=== PATIENT | female | born 1950 | race Caucasian/White ===

== ENCOUNTER 2016-10-26 01:47 | Outpatient (CLI) | payer MEDICARE | END 2016-10-26 01:48 | disposition critical access hospital (66) | DX: R10.32 Left lower quadrant pain (principal) | CPT/HCPCS: A0425; A0427 ==

== ENCOUNTER 2016-10-26 01:58 | Observation (INO) | payer MEDICARE ==
[2016-10-26] MEDS ORDERED: SODIUM CHLORIDE 0.9% 1,000 ML IV ONE (02:16)
[2016-10-26] MEDS ORDERED: ONDANSETRON 4 MG/2 ML VIAL ONE (03:56)
[2016-10-26] MEDS ORDERED: PROCHLORPERAZINE 10 MG/2 ML VIAL IVP PRN (04:44)
[2016-10-26] MEDS ORDERED: oxyCODONE 5 MG TABLET PO PRN ×2 (04:44)
[2016-10-26] MEDS ORDERED: ONDANSETRON 4 MG/2 ML VIAL IVP PRN (04:44)
[2016-10-26] MEDS ORDERED: ACETAMINOPHEN 325 MG TABLET PO PRN (04:44)
[2016-10-26] MEDS ORDERED: SODIUM CHLORIDE FLUSH 0.9% 10 ML SYRINGE IVP PRN (04:44)
[2016-10-26] MEDS ORDERED: HYDROmorphone 1 MG/ML SYRINGE IVP PRN (04:49)
[2016-10-26] MEDS ORDERED: SODIUM CHLORIDE 0.9% 1,000 ML IV SCH (05:00)
[2016-10-26] MEDS ORDERED: ONDANSETRON 4 MG/2 ML VIAL IVP STA (05:04)
[2016-10-26] MEDS: NS W/20 MEQ KCL 1,000 ML IV SCH ×3 (05:50→22:25)
[2016-10-26] MEDS ORDERED: MAGNESIUM SULFATE 2 GRAM 50 ML IV SCH (06:02)
[2016-10-26] MEDS: SODIUM CHLORIDE FLUSH 0.9% 10 ML SYRINGE IVP SCH ×3 (06:03→21:16)
[2016-10-26] MEDS: INSULIN GLARGINE 300 UNIT/3 ML PEN SUBQ SCH ×2 (06:11→18:38)
[2016-10-26] MEDS: INSULIN REGULAR HUMAN 100 UNIT/1 ML 10 ML MDV SUBQ SCH ×3 (06:12→18:39)
[2016-10-26] MEDS ORDERED: PANTOPRAZOLE 40 MG TABLET PO SCH (07:00)
[2016-10-26] MEDS: POLYETHYLENE GLYCOL 3350 17 GM PACKET PO SCH (11:22)
[2016-10-26] MEDS: ENOXAPARIN 40 MG/0.4 ML SYRINGE SUBQ SCH (11:24)
[2016-10-26] MEDS ORDERED: GI COCKTAIL 120 ML BOTTLE PO PRN (16:09)
[2016-10-26] MEDS: PANTOPRAZOLE 40 MG VIAL IVP SCH (21:14)
[2016-10-27] MEDS ORDERED: GLUCAGON 1 MG/ML VIAL SUBQ PRN (00:10)
[2016-10-27] MEDS ORDERED: DEXTROSE 50% ABBOJECT 25 GM/50 ML SYRINGE IVP PRN (00:10)
[2016-10-27] MEDS ORDERED: DEXTROSE 5% 1,000 ML IV PRN (00:10)
[2016-10-27] MEDS ORDERED: DEXTROSE GEL 37.5 GM TUBE PO PRN (00:10)
[2016-10-27] MEDS: INSULIN REGULAR HUMAN 100 UNIT/1 ML 10 ML MDV SUBQ SCH (00:11)
[2016-10-27] MEDS: NS W/20 MEQ KCL 1,000 ML IV SCH (06:23)
[2016-10-27] MEDS: SODIUM CHLORIDE FLUSH 0.9% 10 ML SYRINGE IVP SCH (06:24)
[2016-10-27] MEDS ORDERED: INSULIN ASPART 300 UNIT/3 ML PEN SUBQ SCH ×2 (08:00)
[2016-10-27] MEDS ORDERED: INSULIN GLARGINE 300 UNIT/3 ML PEN SUBQ SCH ×2 (08:00→21:00)
[2016-10-27] MEDS: PANTOPRAZOLE 40 MG VIAL IVP SCH (09:56)
[2016-10-27] MEDS: ENOXAPARIN 40 MG/0.4 ML SYRINGE SUBQ SCH (09:56)
[2016-10-27] MEDS: POLYETHYLENE GLYCOL 3350 17 GM PACKET PO SCH (09:56)
== END 2016-10-27 11:25 | disposition home or self-care (01) ==
DX: K85.90 Acute pancreatitis without necrosis or infection, unspecified (principal); E11.65 Type 2 diabetes mellitus with hyperglycemia; E87.6 Hypokalemia; I10 Essential (primary) hypertension; I49.9 Cardiac arrhythmia, unspecified; Z95.0 Presence of cardiac pacemaker; Z86.73 Personal history of transient ischemic attack (TIA), and cerebral infarction without residual deficits; Z90.49 Acquired absence of other specified parts of digestive tract; Z79.4 Long term (current) use of insulin; Z79.899 Other long term (current) drug therapy; Z87.11 Personal history of peptic ulcer disease; Z72.0 Tobacco use
CPT/HCPCS: 36415; 51701; 74176; 76705; 80053; 80061; 81003; 82150; 83036; 83690; 83735; 84100; 85025; 96361; 96365; 96372; 96375; 96376; 99285; A9270; G0378; J1170; J1650; J1815

== ENCOUNTER 2016-11-03 11:37 | Outpatient (CLI) | payer MEDICARE | END 2016-11-03 11:38 | disposition home or self-care (01) | DX: R06.09 Other forms of dyspnea (principal); R06.00 Dyspnea, unspecified; E78.00 Pure hypercholesterolemia, unspecified; E11.9 Type 2 diabetes mellitus without complications; K85.90 Acute pancreatitis without necrosis or infection, unspecified ==

== ENCOUNTER 2016-11-03 17:12 | Outpatient (CLI) | payer MEDICARE | END 2016-11-03 17:13 | disposition home or self-care (01) | DX: R06.00 Dyspnea, unspecified (principal); R60.0 Localized edema; E78.00 Pure hypercholesterolemia, unspecified; E11.9 Type 2 diabetes mellitus without complications; K85.90 Acute pancreatitis without necrosis or infection, unspecified ==

== ENCOUNTER 2016-11-17 11:19 | Outpatient (CLI) | payer MEDICARE | END 2016-11-17 11:20 | disposition home or self-care (01) | DX: I50.1 Left ventricular failure, unspecified (principal); I51.7 Cardiomegaly; I34.0 Nonrheumatic mitral (valve) insufficiency; Z95.0 Presence of cardiac pacemaker; R06.09 Other forms of dyspnea ==

== ENCOUNTER 2017-03-24 11:23 | Outpatient (CLI) | payer MEDICARE ==
[2017-03-24 12:15] LABS: CALCIUM 9.5 mg/dL (8.5-10.3); MAGNESIUM 1.7 mg/dL (1.7-2.8); POTASSIUM 5.6 mmol/L (3.5-5.0)
[2017-03-24 12:27] LABS: HEMOGLOBIN A1C 0.71 g/dL
== END 2017-03-24 11:24 | disposition home or self-care (01) ==
LOC: LAB 11:23
PROVIDERS: ATTEND Internal Medicine
DX: E11.9 Type 2 diabetes mellitus without complications (principal); I50.22 Chronic systolic (congestive) heart failure
CPT/HCPCS: 36415; 80048; 83036; 83735

== ENCOUNTER 2017-03-31 12:53 | Outpatient (CLI) | payer MEDICARE ==
[2017-03-31 18:54] LABS: BUN - BLOOD UREA NITROGEN 28 mg/dL (6-20); CALCIUM 9.8 mg/dL (8.5-10.3); CARBON DIOXIDE - CO2 29 mmol/L (21-32); CHLORIDE 91 mmol/L (101-111); GFR - MDRD 55 (>89); GLUCOSE 230 mg/dL (70-100); POTASSIUM 4.9 mmol/L (3.5-5.0); SODIUM 129 mmol/L (135-145)
== END 2017-03-31 12:54 | disposition home or self-care (01) ==
LOC: LAB.F 12:53
PROVIDERS: ATTEND Internal Medicine
DX: E87.1 Hypo-osmolality and hyponatremia (principal); E87.5 Hyperkalemia; R68.89 Other general symptoms and signs
CPT/HCPCS: 36415; 80048; 84443

== ENCOUNTER 2017-05-05 16:28 | Outpatient (CLI) | payer MEDICARE ==
[2017-05-05 16:53] LABS: CALCIUM 9.6 mg/dL (8.5-10.3); CREATININE 1.1 mg/dL (0.4-1.0); POTASSIUM 4.1 mmol/L (3.5-5.0)
== END 2017-05-05 16:29 | disposition home or self-care (01) ==
LOC: LAB 16:28
PROVIDERS: ATTEND Internal Medicine
DX: I50.22 Chronic systolic (congestive) heart failure (principal)
CPT/HCPCS: 36415; 80048

== ENCOUNTER 2017-08-10 15:03 | Outpatient (CLI) | payer MEDICARE ==
--- NOTE | 2017-08-13 11:28 | Ultrasound Report ---
CAROTID DUPLEX: 08/10/2017 CLINICAL INDICATION: Carotid bruit. TECHNIQUE: Real-time sonographic vascular imaging was performed by the tanning wheel operator through the carotid arteries utilizing both color-flow and Doppler spectral analysis. Multiple car sales representative static images were saved for review. Vessel PSV cm/sec EDV cm/sec ICA/CCA PSV Ratio Degree of Stenosis Plaque Estimate % RCCA Prox 66 -- -- -- -- RCCA Dist 57 15 -- -- -- RECA 96 -- -- -- -- RT BULB 61 16 -- -- -- TEE Prox 63 16 -- -- -- TEE Mid 100 30 -- -- -- TEE Dist 81 25 -- -- -- RVA 56 -- -- -- -- RVA flow direction: Antegrade. Vessel PSV cm/sec EDV cm/sec ICA/CCA PSV Ratio Degree of Stenosis Plaque Estimate % LCCA Prox 86 -- -- -- -- LCCA Dist 66 19 -- -- -- LECA 116 -- -- -- -- LFT BULB 59 14 -- -- -- LICA Prox 67 21 -- -- -- LICA Mid 79 26 -- -- -- LICA Dist 88 26 -- -- -- LVA 84 -- -- -- -- LVA flow direction: Antegrade. Velocity criteria are extrapolated from diameter data as defined by the Society of Radiologists in Ultrasound Consensus Conference Radiology 2003; 229; 340-346. Degree of Stenosis % ICA PSV cm/sec ICA EDV cm/sec ICA/CCA PSV Ratio Plaque Estimate % Normal < 125 <40 < 2.0 None <50 < 125 <40 < 2.0 <50 50-69 125-130 40-100 2.0-4.0 >/=50 >/=70 but less than near occlusion > 230 >100 > 4.0 >/=50 Near occlusion High, low, or undetectable Variable Variable Visible Total occlusion Undetectable Not applicable Not applicable No detectable lumen RIGHT: There is mild plaquing in the right carotid bifurcation, without evidence of a focal hemodynamically significant stenosis. LEFT: There is mild plaquing in the left carotid bifurcation, without evidence of a focal hemodynamically significant carotid stenosis. The vertebral arteries demonstrate antegrade flow bilaterally. Incidental note is made of left greater than right thyroid nodules. Formal thyroid ultrasound is recommended for further evaluation. IMPRESSION: No evidence of a hemodynamically significant carotid stenosis. Left greater than right thyroid nodules. Formal thyroid ultrasound is recommended for further evaluation. zaheer TD: 08/10/2017 21:16 MTDD
== END 2017-08-10 15:04 | disposition home or self-care (01) ==
LOC: DI 15:03
PROVIDERS: ATTEND Family Medicine
DX: R09.89 Other specified symptoms and signs involving the circulatory and respiratory systems (principal)
CPT/HCPCS: 93880

== ENCOUNTER 2017-08-11 09:36 | Outpatient (CLI) | payer MEDICARE ==
[2017-08-11 10:00] LABS: BASOPHILS # (AUTO) 0.1 10^3/uL (0.0-0.1); BASOPHILS % (AUTO) 0.7 %; EOSINOPHILS # (AUTO) 0.3 10^3/uL (0.0-0.7); EOSINOPHILS % (AUTO) 3.3 %; HCT - HEMATOCRIT 35.2 % (37.0-47.0); HGB - HEMOGLOBIN 12.1 g/dL (12.0-16.0); LYMPHOCYTES # (AUTO) 2.8 10^3/uL (1.5-3.5); LYMPHOCYTES % (AUTO) 29.1 %; MEAN CORPUSCULAR HEMOGLOBIN 32.8 pg (27.0-31.0); MEAN CORPUSCULAR HGB CONC 34.4 g/dL (32.0-36.0); MEAN CORPUSCULAR VOLUME 95.3 fL (81.0-99.0); MEAN PLATELET VOLUME 6.7 fL (7.9-10.8); MONOCYTES # (AUTO) 0.5 10^3/uL (0.0-1.0); NEUTROPHILS # (AUTO) 5.9 10^3/uL (1.5-6.6); NEUTROPHILS % (AUTO) 61.9 %; RED BLOOD COUNT 3.69 10^6/uL (4.20-5.40); RED CELL DISTRIBUTION WIDTH 12.9 % (12.0-15.0); UNCORRECTED WHITE BLOOD COUNT 9.5 x10^3/uL; WHITE BLOOD COUNT 9.5 x10^3/uL (4.8-10.8)
[2017-08-11 10:06] LABS: HEMOGLOBIN A1C 0.78 g/dL
[2017-08-11 10:09] LABS: ALBUMIN/GLOBULIN RATIO 1.5 (1.0-2.2); BILIRUBIN,TOTAL 0.4 mg/dL (0.2-1.0); BUN - BLOOD UREA NITROGEN 25 mg/dL (6-20); CALCIUM 9.7 mg/dL (8.5-10.3); CARBON DIOXIDE - CO2 29 mmol/L (21-32); CHLORIDE 98 mmol/L (101-111); CHOL/HDL RATIO 2.5 (<4.4); CHOLESTEROL 182 mg/dL; CREATININE 1.2 mg/dL (0.4-1.0); GFR - MDRD 45 (>89); GLUCOSE 155 mg/dL (70-100); HDL CHOLESTEROL 73 mg/dL; LDL/HDL RATIO 1.2 (<4.4); POTASSIUM 5.2 mmol/L (3.5-5.0); SODIUM 136 mmol/L (135-145); TOTAL PROTEIN 7.1 g/dL (6.7-8.2); TRIGLYCERIDES 122 mg/dL; VLDL CHOLESTEROL 24 mg/dL
== END 2017-08-11 09:37 | disposition home or self-care (01) ==
LOC: LAB 09:36
PROVIDERS: ATTEND Family Medicine
DX: R09.89 Other specified symptoms and signs involving the circulatory and respiratory systems (principal); I10 Essential (primary) hypertension; E78.00 Pure hypercholesterolemia, unspecified; E11.9 Type 2 diabetes mellitus without complications
CPT/HCPCS: 36415; 80053; 80061; 83036; 84443; 85025

== ENCOUNTER 2017-09-08 20:48 | Outpatient (CLI) | payer MEDICARE ==
--- NOTE | 2017-09-08 23:14 | Ultrasound Preliminary Report ---
Exam: US DUPLEX LWR EXT ARTERIAL RT IMPRESSION: Ultrasound examination from the right common femoral artery to the ankle diminishes diffusely abnorma l monophasic waveforms and decreased velocities. No focal stenosis is noted. There is evidence of dif fuse atheromatous calcified and noncalcified plaques. Comment: Study begins at the level of the right common femoral artery. The abdominal aorta, intra-abd ominal and external iliac arteries are not evaluated. Central disease not excluded by this current st udy. Patient may benefit from CT angiogram with runoff. JTA The call report notification system was initiated by Dr. Corazon Valladares at 22:51 hrs on 09/08/17. The above findings were discussed with Junior Aguirre by Dr. Corazon Valladares at 23:13 hrs on 09/08/17. SITE ID: [id number]
--- NOTE | 2017-09-09 00:30 | Ultrasound Report ---
EXAM: RIGHT LOWER EXTREMITY ARTERIAL DOPPLER ULTRASOUND EXAM DATE: 09/08/2017 10:33 PM. CLINICAL HISTORY: Subacute onset pallor/exertional pain/anesthesia. COMPARISON: None. TECHNIQUE: Real-time sonographic vascular imaging was performed by the bench loom weaver, utilizing color-f low, Doppler flow, and spectral analysis. Multiple wine sales representative static images were saved for review . FINDINGS: The grayscale and color images demonstrate diffuse atheromatous calcified and noncalcified plaques wi thout focal stenosis. Diffusely abnormal waveforms are noted. Biphasic waveforms are seen in the right common femoral arter y. The remaining vessels from the hip to the ankle demonstrate monophasic waveforms. Parvus tardus wa veforms are noted in the distal right superficial femoral artery, popliteal, peroneal, and posterior tibial arteries. Nonvisualization of the right dorsalis pedis artery. Spectral waveform analysis is as follows: Right Leg: YOUTH PROGRAM DIRECTOR: PSV 99.2 cm/sec. Biphasic waveform. PSFA: PSV 36 cm/sec. Monophasic waveform. MSFA: PSV 79 cm/sec. Monophasic waveform. DSFA: PSV 18 cm/sec. Monophasic waveform. PFA: PSV 101 cm/sec. Monophasic waveform. POP: PSV 17.2 cm/sec. Monophasic waveform. DELL: PSV 14.2 cm/sec. Monophasic waveform. DIALYSIS CHIEF EQUIPMENT TECHNICIAN: PSV 16 cm/sec. Monophasic waveform. PER: PSV 8.2 cm/sec. Monophasic waveform. DPA: Almost completely absent flow. IMPRESSION: Ultrasound examination from the right common femoral artery to the ankle demonstrates diffusely abnor mal monophasic waveforms and decreased velocities. No focal stenosis is noted. There is evidence of d iffuse atheromatous calcified and noncalcified plaques. Comment: Study begins at the level of the right common femoral artery. The abdominal aorta, internal and external iliac arteries are not evaluated. Central disease not excluded by this current study. Pa tient may benefit from CT angiogram with runoff. JTA The call report notification system was initiated by Dr. Corazon Valladares at 22:51 hrs on 09/08/17. The above findings were discussed with Junior Aguirre by Dr. Corazon Valladares at 23:13 hrs on 09/08/17. Referring Provider Line: [phone] SITE ID: [id number]
== END 2017-09-08 20:49 | disposition home or self-care (01) ==
LOC: DI 20:48
PROVIDERS: ATTEND Internal Medicine
DX: I70.201 Unspecified atherosclerosis of native arteries of extremities, right leg (principal)

== ENCOUNTER 2017-09-09 10:50 | Emergency (ER) | payer MEDICARE ==
--- NOTE | 2017-09-09 11:08 | ED Physician Documentation ---
PD HPI LOWER EXT INJURY - Stated complaint Stated Complaint: R LOWER LEG NUMB/COLD - Chief complaint Chief Complaint: General - History obtained from History obtained from: Patient - History of Present Illness PD HPI LOW EXT INJURY LOCATION: Right, Lower leg (from just below knee down to tips.) Type of injury: No: Fall, Twist, Blunt / blow Timing - onset: Today Timing - duration: Days (onset of severe right leg pain associated with pallor last night. Improved enough to begin walking and moving leg.) Timing - details: Abrupt onset (she has been having pain in right leg with walking for weeks/months. Seen by Dr. Rogers, PMD, yesterday and had outpt labs ordered, with U/S showing diminished flow to leg on right. U/S today showing some flow down through leg.) Worsened by: Moving Associated symptoms: Weakness, Tingling. No: Numbness Contributing factors: No: Anticoagulated Similar symptoms before: No diagnosis (concern for occlusion through distal/) Recently seen: Clinic Review of Systems Constitutional: denies: Fever, Chills Eyes: denies: Decreased vision Nose: denies: Rhinorrhea / runny nose, Congestion Throat: denies: Sore throat Cardiac: denies: Chest pain / pressure, Palpitations Respiratory: denies: Dyspnea, Cough GI: reports: Nausea. denies: Vomiting, Diarrhea, Bloody / black stool : denies: Dysuria, Frequency Skin: denies: Rash, Lesions Neurologic: reports: Generalized weakness. 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 Cardiovascular: Pacemaker HEENT: Cataracts - Present Medications Home Medications: Ambulatory Orders Medication Instructions Recorded Confirmed Insulin NPH Human [NovoLIN N] 7 - 10 units SUBQ DAILY PM 10/26/16 12/25/16 Acetaminophen [Tylenol] 650 mg PO Q4HR PRN #0 tablet 10/27/16 Carvedilol 6.25 mg PO BID 12/25/16 12/25/16 Epinephrine [Epipen 2-Pranay] 1 syr SUBQ PRN PRN 12/25/16 12/25/16 Furosemide 40 mg PO DAILY 12/25/16 12/25/16 Glimepiride 2 mg PO DAILY 12/25/16 12/25/16 Insulin Regular Human [NovoLIN R] 3 - 5 units SQ BIDAC 12/25/16 12/25/16 Losartan Potassium 100 mg PO DAILY 12/25/16 12/25/16 Metformin HCl [Metformin HCl ER] 1,000 mg PO DAILY 12/25/16 12/25/16 - Allergies Allergies/Adverse Reactions: Allergies Allergy/AdvReac Type Severity Reaction Status Date / Time ibuprofen Allergy Intermediate GI upset Verified 09/09/17 11:06 morphine Allergy Unknown Unknown Verified 09/09/17 11:06 shellfish Allergy Unknown Uncoded 09/09/17 11:06 - Social History Does the pt smoke?: No Smoking Status: Never smoker Does the pt drink ETOH?: No Does the pt have substance abuse?: No - Family History Family history: reports: Non contributory - Immunizations Immunizations are current?: Yes - POLST Patient has POLST: No PD ED PE NORMAL - Vitals Vital signs reviewed: Yes - General General: Alert and oriented X 3, No acute distress, Well developed/nourished - HEENT HEENT: Pharynx benign - Neck Neck: Supple, no meningeal sign, No adenopathy - Cardiac Cardiac: RRR, No murmur - Respiratory Respiratory: Clear bilaterally - Abdomen Abdomen: Soft, Non tender - Female Female : Deferred - Rectal Rectal: Deferred - Back Back: No CVA TTP - Derm Derm: Normal color, Warm and dry - Extremities Extremities: No deformity, No tenderness to palpate, Normal ROM s pain - Neuro Neuro: Alert and oriented X 3, No motor deficit, Normal speech Eye Opening: Spontaneous Motor: Obeys Commands Verbal: Oriented GCS Score: 15 - Psych Psych: Normal mood. No: Normal affect Results - Vitals Vitals: Vital Signs - 24 hr 09/09/17 09/09/17 10:53 13:00 Temperature 36.6 C Heart Rate 59 L 59 L Respiratory 20 20 Rate Blood Pressure 139/52 H 139/66 H O2 Saturation 100 100 Oxygen O2 Source Room air - Rads (name of study) duplex right leg Radiology: Prelim report reviewed (distal flow present.) PD MEDICAL DECISION MAKING - ED course Complexity details: reviewed results (she has pulses by U/S at DP and p.tibial arteries though small amount. Has color and cap refill. Talked with cardiovascular acid conditioner at [facility] (where his heart doctor is at), He advocated just ASA daily and to be seen in office for peripheral angiogram.), considered differential (sounds like transient vascular occlusion in person with right leg claudication and U/S showing monophasic diminished flow the length of the leg from unguinal area down. ), d/w patient, d/w tax credit leasing consultant Departure - Departure Disposition: Home, Self Care Clinical Impression: Peripheral vascular disease of extremity, Claudication in peripheral vascular disease, Transient arterial occlusion Condition: Stable Record reviewed to determine appropriate education?: Yes Instructions: ED PVD Follow-Up: Junior Aguirre MD [Primary Care Provider] - [facility] [Provider Group] Comments: Take an aspirin daily (can be for baby aspirins). Stay well-hydrated. Continue your other usual medications. The vascular clinic at the [facility] will call you later today or tomorrow to set up an appointment in the very short future. I talked with the on-call provider and they will want to do a peripheral angiogram to assess the area of blockage and see if they can intervene. As such they suggested not doing any CT or dye studies today. Return to the ER if you have severe pain and discoloration of the leg like you had last night. Discharge Date/Time: 09/09/17 13:54
[2017-09-09] MEDS ORDERED: ASPIRIN CHEW 81 MG TABLET PO STA (12:12)
--- NOTE | 2017-09-09 12:54 | CT Report ---
EXAM: CT HEAD EXAM DATE: 09/09/2017 12:45 PM. CLINICAL HISTORY: Some confusion and off balance. COMPARISON: None. TECHNIQUE: Multiaxial CT images were obtained from the foramen magnum to the vertex. Reformats: Coron al. IV contrast: None. In accordance with CT protocol optimization, one or more of the following dose reduction techniques w ere utilized for this exam: automated exposure control, adjustment of mA and/or KV based on patient s ize, or use of iterative reconstructive technique. FINDINGS: Parenchyma: No intraparenchymal hemorrhage. No evidence of mass, midline shift, or CT findings of acu te infarction. Bennett-white differentiation is distinct. Diffuse chronic microangiopathic white matter changes are evident. Extraaxial Spaces: Bifrontal subdural hygromas 6 mm versus frontal atrophy Ventricles: The ventricles and cortical sulci are enlarged, consistent with age-related tissue loss. Sinuses and orbits: Imaged paranasal sinuses, orbits, and mastoids show no significant abnormality. Bones: No evidence of fracture or calvarial defect. Other: None. IMPRESSION: 1. Bifrontal subdural hygromas 6 mm versus frontal atrophy 2. No acute bleed, no acute infarct. 3. Generalized age-related cortical atrophic changes RADIA Referring Provider Line: [phone] SITE ID: [id number]
[2017-09-09 13:01] VITALS: BP 139/66
== END 2017-09-09 13:54 | disposition home or self-care (01) ==
LOC: ED 10:50
DX: E11.51 Type 2 diabetes mellitus with diabetic peripheral angiopathy without gangrene (principal); I77.89 Other specified disorders of arteries and arterioles; I11.0 Hypertensive heart disease with heart failure; I50.9 Heart failure, unspecified; E78.00 Pure hypercholesterolemia, unspecified; I25.2 Old myocardial infarction; Z79.4 Long term (current) use of insulin; Z95.0 Presence of cardiac pacemaker
CPT/HCPCS: 70450; 99283; 99284; A9270

== ENCOUNTER 2018-11-16 09:00 | Outpatient (CLI) | payer OTHER ==
[2018-11-16 10:38] LABS: CALCIUM 9.6 mg/dL (8.5-10.3)
== END 2018-11-16 09:01 | disposition home or self-care (01) ==
LOC: LAB.F 09:00
PROVIDERS: ATTEND Internal Medicine
DX: I10 Essential (primary) hypertension (principal)
CPT/HCPCS: 36415; 80048

== ENCOUNTER 2019-04-27 09:59 | Outpatient (CLI) | payer OTHER ==
[2019-04-27 10:28] LABS: CHOL/HDL RATIO 1.6 (<4.4); CHOLESTEROL 122 mg/dL; HDL CHOLESTEROL 75 mg/dL; LDL CHOLESTEROL,CALCULATED 33 mg/dL; LDL/HDL RATIO 0.4 (<4.4); VLDL CHOLESTEROL 14 mg/dL
== END 2019-04-27 10:00 | disposition home or self-care (01) ==
LOC: LAB 09:59
PROVIDERS: ATTEND Internal Medicine Cardiovascular Disease
DX: E78.5 Hyperlipidemia, unspecified (principal)
CPT/HCPCS: 36415; 80061; 83721

== ENCOUNTER 2019-08-17 10:24 | Outpatient (CLI) | payer OTHER ==
[2019-08-17 11:22] LABS: BASOPHILS # (AUTO) 0.1 10^3/uL (0.0-0.1); BASOPHILS % (AUTO) 0.5 %; EOSINOPHILS # (AUTO) 0.3 10^3/uL (0.0-0.7); EOSINOPHILS % (AUTO) 3.4 %; HGB - HEMOGLOBIN 11.5 g/dL (12.0-16.0); LYMPHOCYTES # (AUTO) 2.8 10^3/uL (1.5-3.5); LYMPHOCYTES % (AUTO) 28.7 %; MEAN CORPUSCULAR HEMOGLOBIN 31.2 pg (27.0-31.0); MEAN CORPUSCULAR HGB CONC 32.7 g/dL (32.0-36.0); MEAN CORPUSCULAR VOLUME 95.4 fL (81.0-99.0); MEAN PLATELET VOLUME 9.1 fL (7.9-10.8); MONOCYTES # (AUTO) 0.5 10^3/uL (0.0-1.0); MONOCYTES % (AUTO) 4.7 %; NEUTROPHILS % (AUTO) 62.4 %; PLT - PLATELET COUNT 162 10^3/uL (130-450); RED BLOOD COUNT 3.69 10^6/uL (4.20-5.40); RED CELL DISTRIBUTION WIDTH 12.9 % (12.0-15.0); WHITE BLOOD COUNT 9.6 x10^3/uL (4.8-10.8)
[2019-08-17 11:54] LABS: HB2 TOTAL 11.8 g/dL; HEMOGLOBIN A1C 1.23 g/dL; HEMOGLOBIN A1C % 11.7 % (4.6-6.2)
[2019-08-17 11:55] LABS: ALBUMIN 4.2 g/dL (3.2-5.5); ALBUMIN/GLOBULIN RATIO 1.7 (1.0-2.2); ALKALINE PHOSPHATASE 98 IU/L (42-121); ALT ALANINE AMINOTRANSFERASE 22 IU/L (10-60); AST ASPARTATE AMINOTRANSFERASE 20 IU/L (10-42); BILIRUBIN,TOTAL 0.8 mg/dL (0.2-1.0); BUN - BLOOD UREA NITROGEN 26 mg/dL (6-20); CALCIUM 8.6 mg/dL (8.5-10.3); CARBON DIOXIDE - CO2 29 mmol/L (21-32); CHLORIDE 89 mmol/L (101-111); CHOL/HDL RATIO 1.8 (<4.4); CHOLESTEROL 107 mg/dL; CREATININE 1.2 mg/dL (0.4-1.0); GFR - MDRD 44 (>89); GLUCOSE 388 mg/dL (70-100); HDL CHOLESTEROL 61 mg/dL; LDL CHOLESTEROL,CALCULATED 29 mg/dL; LDL/HDL RATIO 0.5 (<4.4); SODIUM 130 mmol/L (135-145); TOTAL PROTEIN 6.7 g/dL (6.7-8.2); VLDL CHOLESTEROL 17 mg/dL
[2019-08-17 12:01] LABS: CREATININE,URINE 33.9 mg/dL; MICROALBUM/CREATININE RATIO,UR 20.6 ug/mg (<30.0); MICROALBUMIN,URINE 0.7 mg/dL (0-300.0)
--- NOTE | 2019-08-18 11:50 | DEXA Report ---
Reason: POSTMENOPAUSAL STATE Procedure Date: 08/17/2019 Accession Number: [id number] / [id number] Procedure: DEX - Dexa Spine and/or Hip CPT Code: Final Report FULL RESULT: EXAM: Dexa Spine and/or Hip, Dexa Forearm DATE: 08/17/2019 2:19 PM CLINICAL HISTORY: POSTMENOPAUSAL STATE TECHNIQUE: Dual energy x-ray absorptiometry (DXA) was performed on a [employer] System. Regions measured are the AP Spine, femoral neck, and if needed forearm. COMPARISON: None. In accordance with the International Society for Clinical Densitometry (ISCD) guidelines, data from previous exams may be reanalyzed using current recommendations and techniques. This is done to allow a more accurate basis for comparison with the current study. FINDINGS: The data for the lumbar spine is as follows: BMD (g/cm/cm) T-SCORE Z-SCORE REGION L1 1.234 0.9 2.8 L2 1.249 0.4 2.4 L3 1.371 1.4 3.4 L4 1.194 0.0 1.9 TOTAL 1.262 0.7 2.6 NOTE: All evaluable vertebrae are used for classification The data for the hip is as follows: BMD (g/cm/cm) T-SCORE Z-SCORE REGION Neck 0.807 -1.7 0.3 TOTAL 0.781 -1.8 -0.1 NOTE: The femoral neck or total proximal femur, whichever is lowest, is used for classification. The data for the left forearm is as follows: BMD (g/cm/cm) T-SCORE Z-SCORE REGION 1/3 0.684 -2.2 -0.3 NOTE: The 33% radius of the nondominant forearm is used for classification. IMPRESSION: THE WHO CLASSIFICATION BASED ON THE INTERNATIONAL REFERENCE STANDARD IS OSTEOPENIA. THE FRACTURE RISK IS INCREASED. RECOMMENDATION: Patients with diagnosis of osteoporosis or osteopenia should have regular bone mineral density assessment. For those eligible for Medicare, routine testing is allowed once every 2 years. Testing frequency can be increased for patients who have rapidly progressing disease or for those who are receiving medical therapy to restore bone mass. COMMENT: World Health Organization (WHO) definitions for osteoporosis and osteopenia: NORMAL BMD: T-score at -1.0 or higher, fracture risk is low OSTEOPENIA BMD: T-score between -1.0 and -2.5, fracture risk is increased. OSTEOPOROSIS BMD: T-score at -2.5 or lower, fracture risk is high. National Osteoporosis Foundation recommends: 1. Obtain adequate dietary calcium (at least 1200 mg per day) and vitamin D (400-800 international units per day). 2. Participate, as appropriate, in regular weightbearing and muscle-strengthening exercise. 3. Avoid tobacco use and reduce alcohol and caffeine intake. 4. For more detailed information see the website at www.NOF.org.
== END 2019-08-17 10:25 | disposition home or self-care (01) ==
LOC: DI 10:24
PROVIDERS: ATTEND Internal Medicine
DX: Z13.820 Encounter for screening for osteoporosis (principal); N95.8 Other specified menopausal and perimenopausal disorders; M85.89 Other specified disorders of bone density and structure, multiple sites; E78.5 Hyperlipidemia, unspecified; E04.1 Nontoxic single thyroid nodule; N18.3 Chronic kidney disease, stage 3 (moderate)
CPT/HCPCS: 36415; 77080; 77081; 80053; 80061; 82043; 82570; 83036; 83721; 84443; 85025

== ENCOUNTER 2020-07-03 17:02 | Emergency (ER) | payer MEDICARE, OTHER ==
[2020-07-03 17:40] LABS: BASOPHILS # (AUTO) 0.1 10^3/uL (0.0-0.1); BASOPHILS % (AUTO) 0.6 %; EOSINOPHILS # (AUTO) 0.4 10^3/uL (0.0-0.7); EOSINOPHILS % (AUTO) 4.6 %; HGB - HEMOGLOBIN 10.8 g/dL (12.0-16.0); LYMPHOCYTES # (AUTO) 2.9 10^3/uL (1.5-3.5); LYMPHOCYTES % (AUTO) 34.4 %; MEAN CORPUSCULAR HEMOGLOBIN 30.8 pg (27.0-31.0); MEAN CORPUSCULAR HGB CONC 33.1 g/dL (32.0-36.0); MEAN CORPUSCULAR VOLUME 92.9 fL (81.0-99.0); MEAN PLATELET VOLUME 8.7 fL (7.9-10.8); MONOCYTES # (AUTO) 0.5 10^3/uL (0.0-1.0); MONOCYTES % (AUTO) 5.6 %; NEUTROPHILS # (AUTO) 4.6 10^3/uL (1.5-6.6); NEUTROPHILS % (AUTO) 54.4 %; PLT - PLATELET COUNT 168 10^3/uL (130-450); RED BLOOD COUNT 3.51 10^6/uL (4.20-5.40); RED CELL DISTRIBUTION WIDTH 14.2 % (12.0-15.0); WHITE BLOOD COUNT 8.4 x10^3/uL (4.8-10.8)
[2020-07-03 18:07] LABS: ALBUMIN 4.4 g/dL (3.2-5.5); ALBUMIN/GLOBULIN RATIO 1.5 (1.0-2.2); BILIRUBIN,TOTAL 0.6 mg/dL (0.2-1.0); CALCIUM 9.5 mg/dL (8.5-10.3); MAGNESIUM 1.6 mg/dL (1.7-2.8); TOTAL PROTEIN 7.3 g/dL (6.7-8.2)
--- NOTE | 2020-07-03 18:46 | ED Physician Documentation ---
History of Present Illness - Stated complaint Stated Complaint: SENT BY WORK MANAGER/LOW SODIUM - Chief complaint Chief Complaint: General - History obtained from History obtained from: Patient - Additonal information Additional information: Pt states she was sent from her warehouse shipper after labs drawn there on 06/24 indicated a sodium of 122 and a mag of 1.4. Pt states she has had some dizziness and weakness though this is not acute, it has been going on for quite awhile and she is followed by her PCP and warehouse shipper for this. She has had low sodium in the past, but never required admit or replacement for this. She is on lasix and voids frequently throughout the day. Denies any fever, cough or dyspnea, cp, abd pain, n/v, urinary sx, no confusion or severe headaches. Review of Systems Constitutional: reports: Reviewed and negative Cardiac: reports: Reviewed and negative Respiratory: reports: Reviewed and negative GI: reports: Reviewed and negative : reports: Reviewed and negative Musculoskeletal: reports: Reviewed and negative Neurologic: reports: Reviewed and negative Psychiatric: reports: Reviewed and negative Endocrine: reports: Reviewed and negative PD PAST MEDICAL HISTORY - Past Medical History Past Medical History: Yes Cardiovascular: Congestive heart failure, Hypertension, High cholesterol, [place] Respiratory: Shortness of breath Neuro: Peripheral neuropathy Endocrine/Autoimmune: Type 2 diabetes GI: Pancreatitis Psych: None - Past Surgical History Past Surgical History: Yes General: Cholecystectomy Ortho: 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 Cardiovascular: Pacemaker, Vascular surgery HEENT: Cataracts - Present Medications Home Medications: Ambulatory Orders Medication Instructions Recorded Confirmed Insulin NPH Human [NovoLIN N] 7 - 10 units SUBQ DAILY PM 10/26/16 12/25/16 Acetaminophen [Tylenol] 650 mg PO Q4HR PRN #0 tablet 10/27/16 Carvedilol 6.25 mg PO BID 12/25/16 12/25/16 EPINEPHrine [Epipen 2-Pranay] 1 syr SUBQ PRN PRN 12/25/16 12/25/16 Furosemide 40 mg PO DAILY 12/25/16 12/25/16 Glimepiride 2 mg PO DAILY 12/25/16 12/25/16 Insulin Regular Human [NovoLIN R] 3 - 5 units SQ BIDAC 12/25/16 12/25/16 Losartan Potassium 100 mg PO DAILY 12/25/16 12/25/16 Metformin HCl [Metformin HCl ER] 1,000 mg PO DAILY 12/25/16 12/25/16 - Allergies Allergies/Adverse Reactions: Allergies Allergy/AdvReac Type Severity Reaction Status Date / Time ibuprofen Allergy Intermediate GI upset Verified 07/03/20 17:13 morphine Allergy Unknown Unknown Verified 07/03/20 17:13 shellfish Allergy Unknown Uncoded 07/03/20 17:13 - Social History Does the pt smoke?: No Smoking Status: Never smoker Does the pt drink ETOH?: No Does the pt have substance abuse?: No - Immunizations Immunizations are current?: Yes - POLST Patient has POLST: No PD ED PE NORMAL - Vitals Vital signs reviewed: Yes - General General: Alert and oriented X 3, No acute distress, Well developed/nourished - HEENT HEENT: Atraumatic, Moist mucous membranes - Neck Neck: Supple, no meningeal sign, No JVD - Cardiac Cardiac: RRR, No murmur, No gallop, No rub, Strong equal pulses - Respiratory Respiratory: No respiratory distress, Clear bilaterally - Abdomen Abdomen: Normal bowel sounds, Soft, Non tender, Non distended - Derm Derm: Normal color, Warm and dry, No rash - Extremities Extremities: No deformity, No edema - Neuro Neuro: Alert and oriented X 3 Eye Opening: Spontaneous Motor: Obeys Commands Verbal: Oriented GCS Score: 15 - Psych Psych: Normal mood, Normal affect Results - Vitals Vitals: Vital Signs - 24 hr 07/03/20 17:07 Temperature 36.5 C Heart Rate 60 Respiratory 18 Rate Blood Pressure 121/51 L O2 Saturation 100 Oxygen O2 Source Room air - Labs Labs: Laboratory Tests 07/03/20 07/03/20 07/03/20 17:32 17:32 17:32 WBC 8.4 RBC 3.51 L Hgb 10.8 L Hct 32.6 L MCV 92.9 MCH 30.8 MCHC 33.1 RDW 14.2 Plt Count 168 MPV 8.7 Neut # (Auto) 4.6 Lymph # (Auto) 2.9 [place] # (Auto) 0.5 Eos # (Auto) 0.4 Baso # (Auto) 0.1 Absolute Nucleated RBC 0.00 Nucleated RBC % 0.0 Sodium 132 L Potassium 4.1 Chloride 92 L Carbon Dioxide 28 Anion Gap 12.0 BUN 22 H Creatinine 1.0 Estimated GFR (MDRD) 55 L Glucose 154 H Calcium 9.5 Magnesium 1.6 L Total Bilirubin 0.6 AST 20 ALT 18 Alkaline Phosphatase 129 H B-Natriuretic Peptide 658 H Total Protein 7.3 Albumin 4.4 Globulin 2.9 Albumin/Globulin Ratio 1.5 PD MEDICAL DECISION MAKING - ED course Complexity details: reviewed results, re-evaluated patient, considered differential, d/w patient ED course: 70 yo F presented from her cardiology office for concern about possible hyponatremia. Her sodium here today is 132 and well within normal. Her mag is s lightly low at 1.6. She has a hx/o dizziness and this is present today but not new. She has no acute symptoms today and therefore will discharge her home w/ follow up w/ cardiology and PCP within 1 week. Advised to continue all heart medications as prescribed, may consider drinking some electrolyte solution throughout the day. Return precautions reviewed in detail w/ pt. Departure - Departure Disposition: 01 Home, Self Care Clinical Impression: Hypomagnesemia, Dizziness Condition: Good Instructions: ED Dizziness [facility] Comments: You presented due to concern for low sodium however your sodium level today is okay. It is on the lower end of normal. You may try incorporating some electrolyte solution into your diet, but be cautious because many of them have a lot of sugar which you should avoid. Please follow up with your primary doctor and warehouse shipper regarding your ongoing dizziness. Return to the ER at anytime if you have new symptoms such as chest pain, difficulty breathing, confusion, severe weakness.
[2020-07-03 19:02] LABS: BILIRUBIN,URINE NEGATIVE (NEGATIVE); GLUCOSE, URINE (UA) NEGATIVE (NEGATIVE); KETONES,URINE (UA) NEGATIVE (NEGATIVE); LEUKOCYTE ESTERASE, URINE SMALL (NEGATIVE); NITRITE,URINE NEGATIVE (NEGATIVE); OCCULT BLOOD,URINE NEGATIVE (NEGATIVE); PROTEIN,URINE NEGATIVE (NEGATIVE); UROBILINOGEN,URINE 0.2 (NORMAL) E.U./dL (NORMAL)
[2020-07-03 19:07] LABS: CLARITY,URINE CLEAR (CLEAR)
[2020-07-03 19:21] LABS: BACTERIA,URINE Rare /HPF (None Seen); RBC,URINE 0-5 /HPF (0-5); SQUAMOUS EPITHELIAL CELL,UR RARE Squamous (<= Few); WBC CLUMPS,URINE PRESENT
[2020-07-03 19:27] VITALS: BP 124/83
== END 2020-07-03 19:33 | disposition home or self-care (01) ==
LOC: ED 17:02
DX: E83.42 Hypomagnesemia (principal); E11.42 Type 2 diabetes mellitus with diabetic polyneuropathy; Z79.4 Long term (current) use of insulin; I11.0 Hypertensive heart disease with heart failure; I50.9 Heart failure, unspecified; Z95.0 Presence of cardiac pacemaker
CPT/HCPCS: 36415; 80053; 81001; 81003; 83735; 83880; 85025; 87086; 99283; 99284

== ENCOUNTER 2020-08-20 21:11 | Outpatient (CLI) | payer MEDICARE ==
--- OUTSIDE RECORDS SUMMARY | 2020-08-28 00:29 | EXTERNAL MEDICAL SUMMARY RPT | Continuity of Care Document ---
:1950 Demographics Phone Unavailable Preferred Language Unknown Marital Status Unknown Rastafarian Affiliation Unknown Race Unknown Ethnic Group Unknown Author Organization [place] Address [address] [phone] Phone Care Team Providers Name Role Phone Aguirre Unavailable Unavailable Problems date description facility 2019-04-27 09:59 HYPERLIPIDEMIA, UNSPECIFIED [facility] 2020-07-03 17:02 TYPE 2 DIABETES MELLITUS WITH [facility] DIABETIC POLYNEUROPA 2020-07-03 17:02 TYPE 2 DIABETES MELLITUS WITH [facility] DIABETIC POLYNEUROPATHY 2020-07-03 17:02 HYPOMAGNESEMIA [facility] 2020-07-03 17:02 HYPERTENSIVE HEART DISEASE WITH [facility] HEART FAILURE 2020-07-03 17:02 PRESENCE OF CARDIAC PACEMAKER [facility] 2020-07-03 17:02 HYPO-OSMOLALITY AND HYPONATREMIA Located within [facility] 2020-07-03 17:02 HEART FAILURE, UNSPECIFIED [facility] 2020-07-03 17:02 [employer] (CURRENT) USE OF INSULIN [facility] 2020-08-20 21:11 CONTACT WITH AND (SUSPECTED) [facility] EXPOSURE TO COVID-19 Allergies date description facility NO KNOWN ENVIRONMENTAL ALLERGIES Located within [facility] BUSPIRONE HCL [facility] [place] FACIAL MASK [facility] [place] PHENYTOIN SODIUM EXTENDED [facility] SULFA (SULFONAMIDE ANTIBIOTICS) [facility] VENOM-[facility] NO KNOWN ALLERGIES [facility] AM[facility]ODARONE [facility] CODEINE [facility]ID[facility] [place] [facility]OL [facility] shellfish [facility] NO KNOWN ALLERGIES [facility] AM[facility]ICILLIN [facility] LAMOTRIGINE [facility] morphine [facility] ibuprofen [facility] Results Social History date description facility [id number]
== END 2020-08-20 21:12 | disposition home or self-care (01) ==
LOC: COV 21:11
PROVIDERS: ATTEND Family Medicine
DX: Z20.822 Contact with and (suspected) exposure to COVID-19 (principal)

== ENCOUNTER 2022-01-05 08:25 | Emergency (ER) | payer MEDICARE ==
--- NOTE | 2022-01-05 09:58 | ED Physician Documentation ---
PD HPI FEMALE - Stated complaint Stated Complaint: FEMALE - Chief complaint Chief Complaint: Wound - History obtained from History obtained from: Patient - History of Present Illness Timing - onset: How many days ago (3) Timing - duration: Days (3) Timing - details: Gradual onset, Still present Associated symptoms: Vaginal pain, Genital sore/lesion Similar symptoms before: Has not had sx before Recently seen: Not recently seen - Additional information Additional information: 71-year-old female with history of peripheral vascular disease and diabetes type 2 has developed a swelling in the vaginal area that swelled to the size of a [place] and last night this burst and drained blood and fluid. She is coming to the emergency department this morning with a firm mass in the right vaginal area. She has not had fever she has not had other symptoms. 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 Cardiovascular: Pacemaker, Vascular surgery HEENT: Cataracts - Present Medications Home Medications: Ambulatory Orders Medication Instructions Recorded Confirmed Insulin NPH Human [NovoLIN N] 7 - 10 units SUBQ DAILY PM 10/26/16 12/25/16 Acetaminophen [Tylenol] 650 mg PO Q4HR PRN #0 tablet 10/27/16 Carvedilol 6.25 mg PO BID 12/25/16 12/25/16 EPINEPHrine [Epipen 2-Pranay] 1 syr SUBQ PRN PRN 12/25/16 12/25/16 Furosemide 40 mg PO DAILY 12/25/16 12/25/16 Glimepiride 2 mg PO DAILY 12/25/16 12/25/16 Insulin Regular Human [NovoLIN R] 3 - 5 units SQ BIDAC 12/25/16 12/25/16 Losartan Potassium 100 mg PO DAILY 12/25/16 12/25/16 Metformin HCl [Metformin HCl ER] 1,000 mg PO DAILY 12/25/16 12/25/16 Sulfamethox/Trimeth 800/160 1 each PO BID #14 tablet 01/05/22 [Bactrim Ds] - Allergies Allergies/Adverse Reactions: Allergies Allergy/AdvReac Type Severity Reaction Status Date / Time ibuprofen Allergy Intermediate GI upset Verified 01/05/22 08:54 morphine Allergy Unknown Unknown Verified 01/05/22 08:54 shellfish Allergy Unknown Uncoded 01/05/22 08:54 - Social History Does the pt smoke?: No Smoking Status: Never smoker Does the pt drink ETOH?: No Does the pt have substance abuse?: No - Immunizations Immunizations are current?: Yes - POLST Patient has POLST: No PD ED PE NORMAL - Vitals Vital signs reviewed: Yes (normal ) - General General: Alert and oriented X 3, No acute distress, Well developed/nourished - HEENT HEENT: Atraumatic, PERRL, EOMI - Respiratory Respiratory: No respiratory distress - Female Female : Hearing Aid Specialist present (Suzy), Other (There is a firm mass in the right labia majora consistent with a deflated Bartholin's gland cyst. There is clear fluid expressed from a small hole. There is generalized postinflammatory hyperpigmentation to the bikini area. Patient states this is longstanding) - Derm Derm: Normal color, Warm and dry, No rash Results - Vitals Vitals: Vital Signs - 24 hr 01/05/22 01/05/22 08:47 11:14 Temperature 36.0 C L 36.2 C L Heart Rate 59 L 61 Respiratory 16 16 Rate Blood Pressure 127/54 L 124/60 O2 Saturation 100 100 Oxygen O2 Source Room air PD MEDICAL DECISION MAKING - ED course Complexity details: reviewed results, re-evaluated patient, considered differential, d/w patient ED course: 71 y/o female with barholin duct cyst that has ruptured and is draining. I did consult SECURITY AGENT and they recommended placing the patient on antibiotic and a follow- up with them. Departure - Departure Disposition: 01 Home, Self Care Clinical Impression: Bartholin gland cyst Condition: Stable Instructions: Bartholin Cyst Abscess Follow-Up: Junior Aguirre MD [Primary Care Provider] - Carmela Mora MD [Provider Admit Priv/Credential] - Prescriptions: Sulfamethox/Trimeth 800/160 [Bactrim Ds] 1 each PO BID #14 tablet Comments: Katalina, today it looks like you have a Bartholin's duct cyst that has ruptured and drained and we will place you on some antibiotic today and the recommendation is to follow-up with SECURITY AGENT later this week. Antibiotic Septra has been E scribed to the [facility] pharmacy here in [place] Discharge Date/Time: 01/05/22 11:15
[2022-01-05 11:15] VITALS: BP 124/60
== END 2022-01-05 11:15 | disposition home or self-care (01) ==
LOC: ED 08:25
DX: N75.0 Cyst of Bartholin's gland (principal); I11.0 Hypertensive heart disease with heart failure; I50.9 Heart failure, unspecified; E11.9 Type 2 diabetes mellitus without complications; Z79.4 Long term (current) use of insulin
CPT/HCPCS: 99282; 99283

== ENCOUNTER 2022-09-08 09:18 | Outpatient (CLI) | payer MEDICARE ==
[2022-09-08 10:04] LABS: ALBUMIN 4.6 g/dL (3.2-5.5); ALBUMIN/GLOBULIN RATIO 1.4 (1.0-2.2); ALKALINE PHOSPHATASE 190 IU/L (42-121); ALT ALANINE AMINOTRANSFERASE 41 IU/L (10-60); AST ASPARTATE AMINOTRANSFERASE 45 IU/L (10-42); BILIRUBIN,TOTAL 1.2 mg/dL (0.2-1.0); BUN - BLOOD UREA NITROGEN 24 mg/dL (6-20); CALCIUM 9.4 mg/dL (8.5-10.3); CARBON DIOXIDE - CO2 28 mmol/L (21-32); CHLORIDE 93 mmol/L (101-111); CHOL/HDL RATIO 1.5 (<4.4); CHOLESTEROL 96 mg/dL; CREATININE 0.9 mg/dL (0.4-1.0); GFR - MDRD 61 (>89); GLUCOSE 153 mg/dL (70-100); HDL CHOLESTEROL 62 mg/dL; POTASSIUM 4.7 mmol/L (3.5-5.0); SODIUM 131 mmol/L (135-145); TOTAL PROTEIN 7.8 g/dL (6.7-8.2); TRIGLYCERIDES 36 mg/dL
[2022-09-08 10:12] LABS: BASOPHILS # (AUTO) 0.1 10^3/uL (0.0-0.1); BASOPHILS % (AUTO) 0.7 %; EOSINOPHILS # (AUTO) 0.3 10^3/uL (0.0-0.7); EOSINOPHILS % (AUTO) 3.1 %; HCT - HEMATOCRIT 40.8 % (37.0-47.0); HGB - HEMOGLOBIN 13.4 g/dL (12.0-16.0); LYMPHOCYTES # (AUTO) 2.4 10^3/uL (1.5-3.5); LYMPHOCYTES % (AUTO) 29.3 %; MEAN CORPUSCULAR HEMOGLOBIN 31.9 pg (27.0-31.0); MEAN CORPUSCULAR HGB CONC 32.8 g/dL (32.0-36.0); MEAN CORPUSCULAR VOLUME 97.1 fL (81.0-99.0); MEAN PLATELET VOLUME 9.5 fL (7.9-10.8); MONOCYTES # (AUTO) 0.5 10^3/uL (0.0-1.0); MONOCYTES % (AUTO) 5.9 %; NEUTROPHILS # (AUTO) 5.1 10^3/uL (1.5-6.6); NEUTROPHILS % (AUTO) 60.8 %; PLT - PLATELET COUNT 156 10^3/uL (130-450); RED CELL DISTRIBUTION WIDTH 14.7 % (12.0-15.0); WHITE BLOOD COUNT 8.3 x10^3/uL (4.8-10.8)
[2022-09-08 10:13] LABS: THYROID STIMULATING HORMONE 0.3 uIU/mL (0.34-5.60)
[2022-09-08 10:15] LABS: FREE T4 (FREE THYROXINE) 1.08 ng/dL (0.58-1.64)
[2022-09-08 12:24] LABS: ESTIMATED AVERAGE GLUCOSE 214 mg/dL (70-100); HEMOGLOBIN A1c% 9.1 % (4.27-6.07)
== END 2022-09-08 09:19 | disposition home or self-care (01) ==
LOC: LAB 09:18
PROVIDERS: ATTEND Student in an Organized Health Care Education/Training Program
DX: E78.5 Hyperlipidemia, unspecified (principal); Z13.6 Encounter for screening for cardiovascular disorders; F32.A Depression, unspecified; E11.9 Type 2 diabetes mellitus without complications
CPT/HCPCS: 36415; 80053; 80061; 83036; 83721; 84439; 84443; 85025

== ENCOUNTER 2023-10-04 12:02 | Outpatient (CLI) | payer MEDICARE | END 2023-10-04 23:59 | disposition EMS.NT | LOC: EMS 12:02 | DX: Z03.89 Encounter for observation for other suspected diseases and conditions ruled out (principal) ==

== ENCOUNTER 2023-10-19 13:44 | Emergency (ER) | payer MEDICARE ==
[2023-10-19 14:44] VITALS: BP 101/55; O2SAT 97
--- NOTE | 2023-10-19 16:55 | ED Physician Documentation ---
PD HPI WOUND RECHECK - Stated complaint Stated Complaint: RT ANKLE WOUND - Chief complaint Chief Complaint: Wound - Histroy obtained from History obtained from: Patient - Additional information Additional information: scratched leg on wood ~1 week ago Tetanus unknown Today with some pain of the wound, with drainage/redness. 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 Cardiovascular: Pacemaker, Vascular surgery HEENT: Cataracts - Present Medications Home Medications: Ambulatory Orders Medication Instructions Recorded Confirmed Insulin NPH Human [HumuLIN N] 7 - 10 units SUBQ DAILY PM 10/26/16 12/25/16 Acetaminophen [Tylenol] 650 mg PO Q4HR PRN #0 tablet 10/27/16 Carvedilol 6.25 mg PO BID 12/25/16 12/25/16 EPINEPHrine [Epipen 2-Pranay] 1 syr SUBQ PRN PRN 12/25/16 12/25/16 Furosemide 40 mg PO DAILY 12/25/16 12/25/16 Glimepiride 2 mg PO DAILY 12/25/16 12/25/16 Insulin Regular Human [NovoLIN R] 3 - 5 units SQ BIDAC 12/25/16 12/25/16 Losartan Potassium 100 mg PO DAILY 12/25/16 12/25/16 Metformin HCl [Metformin HCl ER] 1,000 mg PO DAILY 12/25/16 12/25/16 Sulfamethox/Trimeth 800/160 1 each PO BID #14 tablet 01/05/22 [Bactrim Ds] cephALEXin [Keflex] 500 mg PO Q6H #28 cap 10/19/23 - Allergies Allergies/Adverse Reactions: Allergies Allergy/AdvReac Type Severity Reaction Status Date / Time ibuprofen Allergy Intermediate GI upset Verified 10/19/23 14:41 morphine Allergy Unknown Unknown Verified 10/19/23 14:41 shellfish Allergy Unknown Uncoded 10/19/23 14:41 - Social History Does the pt smoke?: No Smoking Status: Never smoker Does the pt drink ETOH?: No Does the pt have substance abuse?: No - Immunizations Immunizations are current?: Yes - POLST Patient has POLST: No PD ED PE NORMAL - Vitals Vital signs reviewed: Yes - General General: Alert and oriented X 3, No acute distress - Extremities Extremities: Other (Scrape 2.5x1.5 cm anterior R ankle with mild celluitis. Debrided with granulation base, sent fot cx. Good DP pulse right side.) - Neuro Neuro: Alert and oriented X 3, Normal speech - Psych Psych: Normal mood, Normal affect Results - Vitals Vitals: Vital Signs - 24 hr 10/19/23 14:34 Temperature 36.1 C L Heart Rate 66 Respiratory 15 Rate Blood Pressure 101/55 L O2 Saturation 97 Oxygen O2 Source Room air PD Medical Decision Making - ED course ED course: 73yo with dmii and mild wound infection of scrape. cx sent couselled on wound care Departure - Departure Disposition: 01 Home, Self Care Clinical Impression: Wound, open, knee, lower leg, or ankle with complication Qualifiers: Encounter type: initial encounter Laterality: right Qualified Code(s): S81.001A - Unspecified open wound, right knee, initial encounter Condition: Good Record reviewed to determine appropriate education?: Yes Instructions: ED Staph Infec Abx Tx Only Prescriptions: cephALEXin [Keflex] 500 mg PO Q6H #28 cap Comments: i sent prescription to [facility] We are performing a wound culture, will call you in 2-3 days if antibiotic tripp ge is needed. REturn if worse. Call your PCP for wound check, call tomorrow for appt ~Wednesday. Forms: PCP List
[2023-10-19] MEDS: CEPHALEXIN 250 MG Prepack 8 CAP BOTTLE PO STA (16:59)
[2023-10-19] MEDS: TETANUS/DIPHTHERIA/PERTUSSIS 0.5 ML SYRINGE IM ONE (17:00)
== END 2023-10-19 17:08 | disposition home or self-care (01) ==
LOC: ED 13:44
DX: S91.002A Unspecified open wound, left ankle, initial encounter (principal); L08.9 Local infection of the skin and subcutaneous tissue, unspecified; W22.8XXA Striking against or struck by other objects, initial encounter; Z23 Encounter for immunization; I11.0 Hypertensive heart disease with heart failure; I50.9 Heart failure, unspecified; E78.00 Pure hypercholesterolemia, unspecified; I25.2 Old myocardial infarction; E11.42 Type 2 diabetes mellitus with diabetic polyneuropathy; Z79.4 Long term (current) use of insulin; Z79.84 Long term (current) use of oral hypoglycemic drugs; Z79.899 Other long term (current) drug therapy
CPT/HCPCS: 87070; 87181; 87205; 90471; 99283

== ENCOUNTER 2023-12-14 17:00 | Outpatient (CLI) | payer MEDICARE | END 2023-12-14 22:59 | disposition critical access hospital (66) | LOC: EMS 17:00 | DX: R53.1 Weakness (principal); R11.10 Vomiting, unspecified; R53.83 Other fatigue; E11.9 Type 2 diabetes mellitus without complications; Z79.4 Long term (current) use of insulin; I95.9 Hypotension, unspecified; Z95.0 Presence of cardiac pacemaker | CPT/HCPCS: A0425; A0429 ==

== ENCOUNTER 2023-12-14 17:11 | Inpatient (IN) | payer MEDICARE ==
--- NOTE | 2023-12-14 17:30 | ED Physician Documentation ---
History of Present Illness - Stated complaint Stated Complaint: LETHARGY/WEAKNESS - Chief complaint Chief Complaint: General - History obtained from History obtained from: Patient - Additonal information Additional information: She has a history of pacemaker, tobacco use, diabetes, hypertension. She was feeling good when she woke up this morning but midday today started to feel generally weak, and developed shaking chills. She does have a mild cough. No urinary complaints. 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 Cardiovascular: Pacemaker, Vascular surgery HEENT: Cataracts - Present Medications Home Medications: Ambulatory Orders Medication Instructions Recorded Confirmed Insulin NPH Human [HumuLIN N] 7 - 10 units SUBQ DAILY PM 10/26/16 12/25/16 Acetaminophen [Tylenol] 650 mg PO Q4HR PRN #0 tablet 10/27/16 Carvedilol 6.25 mg PO BID 12/25/16 12/25/16 EPINEPHrine [Epipen 2-Pranay] 1 syr SUBQ PRN PRN 12/25/16 12/25/16 Furosemide 40 mg PO DAILY 12/25/16 12/25/16 Glimepiride 2 mg PO DAILY 12/25/16 12/25/16 Insulin Regular Human [NovoLIN R] 3 - 5 units SQ BIDAC 12/25/16 12/25/16 Losartan Potassium 100 mg PO DAILY 12/25/16 12/25/16 Metformin HCl [Metformin HCl ER] 1,000 mg PO DAILY 12/25/16 12/25/16 Sulfamethox/Trimeth 800/160 1 each PO BID #14 tablet 01/05/22 [Bactrim Ds] cephALEXin [Keflex] 500 mg PO Q6H #28 cap 10/19/23 - Allergies Allergies/Adverse Reactions: Allergies Allergy/AdvReac Type Severity Reaction Status Date / Time ibuprofen Allergy Intermediate GI upset Verified 12/14/23 17:27 morphine Allergy Unknown Unknown Verified 12/14/23 17:27 shellfish Allergy Unknown Uncoded 12/14/23 17:27 - Social History Does the pt smoke?: No Smoking Status: Never smoker Does the pt drink ETOH?: No Does the pt have substance abuse?: No - Immunizations Immunizations are current?: Yes - POLST Patient has POLST: No PD ED PE NORMAL - Vitals Vital signs reviewed: Yes (Paced on the monitor) - General General: Alert and oriented X 3, No acute distress - HEENT HEENT: PERRL, EOMI - Neck Neck: Supple, no meningeal sign, No bony TTP - Cardiac Cardiac: RRR, No murmur - Respiratory Respiratory: No respiratory distress, Other (Rhonchorous throughout without other focal findings per se.) - Abdomen Abdomen: Non tender - Back Back: No CVA TTP, No spinal TTP - Derm Derm: Normal color, Warm and dry - Extremities Extremities: Other (Some venous stasis changes of the legs, no cellulitis.) - Neuro Neuro: Alert and oriented X 3, Normal speech Results - Vitals Vitals: Vital Signs - 24 hr 12/14/23 12/14/23 12/14/23 17:23 17:57 18:27 Temperature 37.3 C Heart Rate 62 60 70 Respiratory 16 24 21 Rate Blood Pressure 101/56 L 100/51 L 100/57 L O2 Saturation 95 93 94 Oxygen O2 Source Room air - EKG (time done) 1828 EKG releavant findings:: EKG personally interpreted by author of this note. Relevant findings are: Rate: Rate (enter#) (70) Rhythm: Paced (Atrial/ventricular) - Labs Labs: Laboratory Tests 12/14/23 12/14/23 12/14/23 17:37 17:37 17:37 WBC 13.1 H RBC 3.39 L Hgb 10.9 L Hct 33.9 L MCV 100.0 H MCH 32.2 H MCHC 32.2 RDW 15.3 H Plt Count 118 L MPV 9.5 Neut # (Auto) 11.1 H Lymph # (Auto) 1.1 L [place] # (Auto) 0.9 Eos # (Auto) 0.0 Baso # (Auto) 0.0 Absolute Nucleated RBC 0.00 Nucleated RBC % 0.0 Sodium 131 L Potassium 4.5 Chloride 98 L Carbon Dioxide 25 Anion Gap 8.0 BUN 29 H Creatinine 1.3 Estimated GFR (MDRD) 40 L Glucose 151 H Lactic Acid 1.6 Calcium 9.3 Total Bilirubin 2.0 H AST 26 ALT 20 Alkaline Phosphatase 182 H Total Protein 6.6 Albumin 4.0 Globulin 2.6 Albumin/Globulin Ratio 1.5 Urine Color Urine Clarity Urine pH Ur Specific [place] Urine Protein Urine Glucose (UA) Urine Ketones Urine Occult Blood Urine Nitrite Urine Bilirubin Urine Urobilinogen Ur Leukocyte Esterase Urine RBC Urine WBC Urine WBC Clumps Ur Squamous Epith Cells Urine Bacteria Urine Culture Comments Nasal Adenovirus (PCR) Nasal B. parapertussis DNA (PCR) Nasal Coronavir 229E PCR Nasal Coronavir HKU1 PCR Nasal Coronavir NL63 PCR Nasal Coronavir OC43 PCR Nasal Enterovir/Rhinovir PCR Nasal Influenza B PCR Nasal Influenza A PCR Nasal Parainfluen 1 PCR Nasal Parainfluen 2 PCR Nasal Parainfluen 3 PCR Nasal Parainfluen 4 PCR Nasal RSV (PCR) Nasal B.pertussis DNA PCR Nasal C.pneumoniae (PCR) Jose Human Metapneumo PCR Nasal M.pneumoniae (PCR) Nasal SARS-CoV-2 (PCR) 12/14/23 12/14/23 18:20 18:20 WBC RBC Hgb Hct MCV MCH MCHC RDW Plt Count MPV Neut # (Auto) Lymph # (Auto) [place] # (Auto) Eos # (Auto) Baso # (Auto) Absolute Nucleated RBC Nucleated RBC % Sodium Potassium Chloride Carbon Dioxide Anion Gap BUN Creatinine Estimated GFR (MDRD) Glucose Lactic Acid Calcium Total Bilirubin AST ALT Alkaline Phosphatase Total Protein Albumin Globulin Albumin/Globulin Ratio Urine Color YELLOW Urine Clarity CLEAR Urine pH 6.0 Ur Specific [place] 1.010 Urine Protein TRACE Urine Glucose (UA) NEGATIVE Urine Ketones NEGATIVE Urine Occult Blood TRACE-INTA Urine Nitrite POSITIVE H Urine Bilirubin SMALL H Urine Urobilinogen 0.2 (NORMAL) Ur Leukocyte Esterase MODERATE H Urine RBC 6-10 H Urine WBC >25 H Urine WBC Clumps PRESENT Ur Squamous Epith Cells FEW Squamous Urine Bacteria Many H Urine Culture Comments INDICATED Nasal Adenovirus (PCR) NOT DETECTED Nasal B. parapertussis DNA (PCR) NOT DETECTED Nasal Coronavir 229E PCR NOT DETECTED Nasal Coronavir HKU1 PCR NOT DETECTED Nasal Coronavir NL63 PCR NOT DETECTED Nasal Coronavir OC43 PCR NOT DETECTED Nasal Enterovir/Rhinovir PCR NOT DETECTED Nasal Influenza B PCR NOT DETECTED Nasal Influenza A PCR NOT DETECTED Nasal Parainfluen 1 PCR NOT DETECTED Nasal Parainfluen 2 PCR NOT DETECTED Nasal Parainfluen 3 PCR NOT DETECTED Nasal Parainfluen 4 PCR NOT DETECTED Nasal RSV (PCR) NOT DETECTED Nasal B.pertussis DNA PCR NOT DETECTED Nasal C.pneumoniae (PCR) NOT DETECTED Jose Human Metapneumo PCR NOT DETECTED Nasal M.pneumoniae (PCR) NOT DETECTED Nasal SARS-CoV-2 (PCR) NOT DETECTED - Rads (name of study) Single view chest x-ray demonstrating mild cardiomegaly without acute findings. Relevant Findings:: Final report received, EMP independent interpretation of test PD Medical Decision Making - ED course ED course: She presents with shaking chills and generalized weakness and this is most c onsistent with an early onset infection. 73-year-old woman presents with acute shaking chills and generalized weakness. Given the symptoms and acute infection is suspected. Subsequent workup in the emergency department demonstrated soft blood pressures at 100/50, white count of 13,000, tachypnea at 24 and positive urinalysis. As such she does fit criteria for sepsis but not septic shock and was treated with IV ceftriaxone. Telehealth consultation for admission placed at 7:[address] Navarro for admission at 8:02 PM. Departure - Departure Disposition: [facility] DC/Xfer Clinical Impression: UTI (urinary tract infection) Qualifiers: Urinary tract infection type: acute pyelonephritis Qualified Code(s): N10 - Acute pyelonephritis Sepsis Qualifiers: Sepsis type: sepsis due to unspecified organism Sepsis acute organ dysfunction status: without acute organ dysfunction Qualified Code(s): A41.9 - Sepsis, unspecified organism Condition: Serious Forms: PCP List
[2023-12-14 17:52] LABS: BASOPHILS % (AUTO) 0.2 %; EOSINOPHILS % (AUTO) 0.1 %; HCT - HEMATOCRIT 33.9 % (37.0-47.0); HGB - HEMOGLOBIN 10.9 g/dL (12.0-16.0); LYMPHOCYTES # (AUTO) 1.1 10^3/uL (1.5-3.5); LYMPHOCYTES % (AUTO) 8.1 %; MEAN CORPUSCULAR HEMOGLOBIN 32.2 pg (27.0-31.0); MEAN CORPUSCULAR HGB CONC 32.2 g/dL (32.0-36.0); MEAN PLATELET VOLUME 9.5 fL (7.9-10.8); MONOCYTES # (AUTO) 0.9 10^3/uL (0.0-1.0); NEUTROPHILS # (AUTO) 11.1 10^3/uL (1.5-6.6); NEUTROPHILS % (AUTO) 84.2 %; PLT - PLATELET COUNT 118 10^3/uL (130-450); RED BLOOD COUNT 3.39 10^6/uL (4.20-5.40); RED CELL DISTRIBUTION WIDTH 15.3 % (12.0-15.0); WHITE BLOOD COUNT 13.1 x10^3/uL (4.8-10.8)
[2023-12-14 17:59] LABS: ALBUMIN/GLOBULIN RATIO 1.5 (1.0-2.2); CALCIUM 9.3 mg/dL (8.5-10.3); CREATININE 1.3 mg/dL (0.6-1.3); POTASSIUM 4.5 mmol/L (3.5-4.5); TOTAL PROTEIN 6.6 g/dL (6.4-8.9)
--- NOTE | 2023-12-14 18:05 | XRAY Report ---
PROCEDURE: Chest 1V INDICATIONS: shaking chils TECHNIQUE: One view of the chest was acquired. COMPARISON: None. FINDINGS: Surgical changes and devices: Dual-lead pacer. Lungs and pleura: No pleural effusions or pneumothorax. Lungs are clear. Mediastinum: Mild cardiomegaly. No central vascular congestion. Bones and chest wall: No suspicious bony lesions. Overlying soft tissues appear unremarkable. IMPRESSION: Mild cardiomegaly without radiographic evidence of acute CHF. Reviewed by: Lisette Jarrett MD on 12/14/2023 6:03 PM PDT Approved by: Lisette Jarrett MD on 12/14/2023 6:03 PM PDT Station ID: [id number]
[2023-12-14 18:55] LABS: BILIRUBIN,URINE SMALL (NEGATIVE); GLUCOSE, URINE (UA) NEGATIVE (NEGATIVE); KETONES,URINE (UA) NEGATIVE (NEGATIVE); LEUKOCYTE ESTERASE, URINE MODERATE (NEGATIVE); NITRITE,URINE POSITIVE (NEGATIVE); OCCULT BLOOD,URINE TRACE-INTA (NEGATIVE); PROTEIN,URINE TRACE mg/dL (NEGATIVE); UROBILINOGEN,URINE 0.2 (NORMAL) E.U./dL (NORMAL)
[2023-12-14 19:07] LABS: CLARITY,URINE CLEAR (CLEAR); WBC,URINE >25 /HPF (0-5)
[2023-12-14 19:08] LABS: BACTERIA,URINE Many /HPF (None Seen); SQUAMOUS EPITHELIAL CELL,UR FEW Squamous (<= Few); WBC CLUMPS,URINE PRESENT
[2023-12-14 19:25] LABS: B. PARAPERTUSSIS- RESP PCR PAN NOT DETECTED; B. PERTUSSIS- RESP PCR PANEL NOT DETECTED; C. PNEUMONIAE- RESP PCR PANEL NOT DETECTED; CORONAVIRUS 229E-RESP PCR NOT DETECTED; CORONAVIRUS HKU1-RESP PCR NOT DETECTED; CORONAVIRUS NL63-RESP PCR NOT DETECTED; CORONAVIRUS OC43-RESP PCR NOT DETECTED; HUMAN METAPNEUMOVIRUS NOT DETECTED; INFLUENZA A- RESP PCR PANEL NOT DETECTED; INFLUENZA B - RESP PCR PANEL NOT DETECTED; M. PNEUMONIAE- RESP PCR PANEL NOT DETECTED; PARAINFLUENZA VIRUS 1 NOT DETECTED; PARAINFLUENZA VIRUS 2 NOT DETECTED; PARAINFLUENZA VIRUS 3 NOT DETECTED; PARAINFLUENZA VIRUS 4 NOT DETECTED; RHINOVIRUS/ENTEROVIRUS NOT DETECTED; RSV- RESP PCR PANEL NOT DETECTED; SARS-CoV-2 -RESP PCR PANEL NOT DETECTED
[2023-12-14] MEDS ORDERED: WATER FOR INJECTION,STERILE 10 ML MC ONE (19:43)
[2023-12-14] MEDS: cefTRIAXone 1 GM VIAL IVP STA (19:46)
[2023-12-14] MEDS ORDERED: ONDANSETRON 4 MG/2 ML VIAL IVP PRN (20:53)
[2023-12-14] MEDS ORDERED: ACETAMINOPHEN 325 MG TABLET PO PRN (20:53)
[2023-12-14] MEDS ORDERED: SODIUM CHLORIDE FLUSH 0.9% 10 ML SYRINGE IVP PRN (20:53)
--- NOTE | 2023-12-14 21:02 | HISTORY & PHYSICAL EXAMINATION ---
Chief Complaint - Chief Complaint Chief Complaint: fatigue History of Present Illness - Admitted From Admitted From:: home - History Obtained From History obtained from: patient Exam Limitations: telemedicine - History of Present Illness HPI Comment/Other: Ms Burnett is a 73 yo F with history of DM II, HTN, pacemaker. Presents to ER with complaints of fatigue, weakness. Pt reports onset of shaking chills this afternoon mid-day, associated with fatigue and feeling "loopy". She is feeling better now since receiving antibiotics. Denies fevers. [place] nauseous earlier today. Denies vomiting, denies abd pain, suprapubic pain or hematuria. Reports she recently took an antifungal for a vaginal yeast infection. Denies any recent antibiotics or recent UTI history. 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 Cardiovascular: reports: Pacemaker, Vascular surgery HEENT: reports: Cataracts - POLST Patient has POLST: No Meds/Allgy - Home Medications Home Medications: Ambulatory Orders Medication Instructions Recorded Confirmed Insulin NPH Human [HumuLIN N] 7 - 10 units SUBQ DAILY PM 10/26/16 12/25/16 Acetaminophen [Tylenol] 650 mg PO Q4HR PRN #0 tablet 10/27/16 Carvedilol 6.25 mg PO BID 12/25/16 12/25/16 EPINEPHrine [Epipen 2-Pranay] 1 syr SUBQ PRN PRN 12/25/16 12/25/16 Furosemide 40 mg PO DAILY 12/25/16 12/25/16 Glimepiride 2 mg PO DAILY 12/25/16 12/25/16 Insulin Regular Human [NovoLIN R] 3 - 5 units SQ BIDAC 12/25/16 12/25/16 Losartan Potassium 100 mg PO DAILY 12/25/16 12/25/16 Metformin HCl [Metformin HCl ER] 1,000 mg PO DAILY 12/25/16 12/25/16 Sulfamethox/Trimeth 800/160 1 each PO BID #14 tablet 01/05/22 [Bactrim Ds] cephALEXin [Keflex] 500 mg PO Q6H #28 cap 10/19/23 - Allergies Allergies/Adverse Reactions: Allergies Allergy/AdvReac Type Severity Reaction Status Date / Time ibuprofen Allergy Intermediate GI upset Verified 12/14/23 17:27 morphine Allergy Unknown Unknown Verified 12/14/23 17:27 shellfish Allergy Unknown Uncoded 12/14/23 17:27 Review of Systems - Constitutional Constitutional: reports: Fatigue, Chills, Weakness - Cardiovascular Cariovascular: reports: Lightheadedness. denies: Palpitations, Chest pain - Respiratory Respiratory: denies: Cough, Sputum production - Gastrointestinal Gastrointestinal: reports: Nausea. denies: Abdominal pain, Vomiting - Genitourinary Genitourinary: denies: Dysuria, Frequency, Urgency, Hematuria, Flank pain - Integumentary Integumentary: denies: Rash - Neurological Neurological: reports: General weakness. denies: Focal weakness - All Other Systems All Other Systems: reports: Reviewed and negative Exam - Vital Signs Reviewed Vital Signs: Yes Vital Signs: Vital Signs x48h Temp Pulse Resp BP Pulse Ox 12/14/23 18:27 70 21 100/57 L 94 12/14/23 17:57 60 24 100/51 L 93 12/14/23 17:23 37.3 C 62 16 101/56 L 95 - Physical Exam General Appearance: positive: No acute distress, Other (appears fatigued, but awake, alert, answers questions appropriately) Respiratory: positive: No respiratory distress Cardiovascular: positive: Other (paced rhythm) Abdomen: negative: Tenderness Skin: positive: Color nml, No rash Neurologic/Psychiatric: positive: Oriented x3, Mood/affect nml Sepsis Event Note (H) - Evaluation Current Stage of Sepsis: Sepsis Possible source of Sepsis: positive: Genitourinary - Sepsis Criteria Sepsis Criteria: Recorded Respiratory Rate greater than 20, WBC count greater than 12,000 or less than 4000 Conclusion/Plan - Lab Results Lab results reviewed: Yes Fish Bones: 12/14/23 17:37 12/14/23 17:37 - Other Other Results/Comments: Assessment/Plan: Sepsis secondary to UTI -Patient presents with tachypnea, elevated leukocytosis 13 -Blood pressures borderline low, MAP > 65 -Lactic 1.6, afebrile -Follow up urine/blood cultures -IV ceftriaxone -Gentle IV fluids hydration overnight DM II -Diabetic diet -SSI HTN -BP borderline, hold home antihypertensives -Trend BP and resume as needed Pacemaker in situ -Stable Mildly elevated alk phos/Tbili -Prior history of cholecystectomy -Patient denies abd pain -Repeat labs in a.m., pending trend consider further imaging Full code DVT ppx: Lovenox sc Telemedicine Consult Details - Provider Location & Consult Time Telemedicine consultation conducted via videoconferencing?: Yes List names and roles of persons who participated in consult:: patient, Dr Navarro Telemedicine provider location:: [place], [place]
[2023-12-14] MEDS: INSULIN LISPRO 300 UNIT/3 ML PEN SUBQ SCH (22:17)
[2023-12-14] MEDS: SODIUM CHLORIDE 0.9% 1,000 ML IV SCH (22:17)
[2023-12-14] MEDS: SODIUM CHLORIDE FLUSH 0.9% 10 ML SYRINGE IVP SCH (23:46)
[2023-12-15 04:49] LABS: HCT - HEMATOCRIT 30.9 % (37.0-47.0); HGB - HEMOGLOBIN 9.9 g/dL (12.0-16.0); MEAN CORPUSCULAR HEMOGLOBIN 31.7 pg (27.0-31.0); MEAN PLATELET VOLUME 9.8 fL (7.9-10.8); RED BLOOD COUNT 3.12 10^6/uL (4.20-5.40); RED CELL DISTRIBUTION WIDTH 15.5 % (12.0-15.0); WHITE BLOOD COUNT 14.3 x10^3/uL (4.8-10.8)
[2023-12-15 05:09] LABS: ALBUMIN 3.3 g/dL (3.2-5.5); ALBUMIN/GLOBULIN RATIO 1.3 (1.0-2.2); BILIRUBIN,TOTAL 1.8 mg/dL (0.2-1.0); CALCIUM 8.8 mg/dL (8.5-10.3); CREATININE 1.2 mg/dL (0.6-1.3); POTASSIUM 4.6 mmol/L (3.5-4.5); TOTAL PROTEIN 5.8 g/dL (6.4-8.9)
[2023-12-15] MEDS: ENOXAPARIN 40 MG/0.4 ML SYRINGE SUBQ SCH (08:47)
[2023-12-15] MEDS: cefTRIAXone 1 GM in SODIUM CHLORIDE 0.9% MINIBAG 100 ML IV SCH (10:14)
--- NOTE | 2023-12-15 12:22 | PHARMACY PROGRESS NOTE ---
- Best Possible Medication History Admit Date and Time: 12/14/232052 Processed by: Pharmacy Medications reviewed in ED?: No Medication History completed: Yes Patient Interview: Completed Secondary Source(s): Insurance records As the person ultimately responsible for medication therapy, providers are able to order a medication from an existing home medication list in [facility] via the "Reconcile Routine" prior to Confirmation of that medication by intelligence support officer. Such practice is discouraged except when the physician, in their clinical judgment, deems that a medical need exists for a medication without regard to previous use.
[2023-12-15] MEDS: INSULIN LISPRO 300 UNIT/3 ML PEN SUBQ SCH ×2 (17:04→21:21)
[2023-12-15] MEDS ORDERED: cefTRIAXone 1 GM VIAL IVP SCH (19:00)
--- NOTE | 2023-12-15 20:11 | PROVIDER PROGRESS NOTE ---
Assessment/Plan - Problem List (1) UTI (urinary tract infection) Qualifiers: Urinary tract infection type: acute pyelonephritis Qualified Code(s): N10 - Acute pyelonephritis Assessment/Plan: Continue intravenous ceftriaxone 1 g daily. Await urine and blood culture results. (2) Sepsis Assessment/Plan: Highly likely to be secondary to urinary tract infection. Continue to monitor hemodynamics. (3) Diabetes Mellitus Type II Assessment/Plan: Diabetic diet and sliding scale insulin. (4) Hypertension Assessment/Plan: Patient with a relatively low blood pressure. Hold for outpatient medications and initiate if indicated. (5) Pacemaker in situ Assessment/Plan: Stable continue to monitor. - Current Meds Current Meds: Current Medications Generic Name Dose Route Start Last Admin Trade Name Freq PRN Reason Stop Dose Admin Enoxaparin Sodium 40 mg 12/15/23 09:00 12/15/23 08:47 Enoxaparin 40 Mg/0.4 Ml Syringe SUBQ Not Given DAILY [facility] Sodium Chloride 1,000 mls @ 100 mls/hr 12/14/23 21:00 12/15/23 15:37 Normal Saline 0.9% IV 100 mls/hr .Q10H [facility] Administration Ceftriaxone Sodium 1 gm/ 100 mls @ 200 mls/hr 12/15/23 10:00 12/15/23 10:46 Sodium Chloride IV Infused DAILY [facility] Infusion Insulin Human Lispro 2 - 10 unit 12/15/23 17:00 12/15/23 17:04 Insulin Lispro 300 Unit/3 Ml Pen SUBQ 10 unit 0800,1200,1700,2100 [facility] Administration Protocol Sodium Chloride 10 ml 12/15/23 01:00 12/15/23 15:37 Sodium Chloride Flush 0.9% 10 Ml Syringe IVP Not Given 0100,0900,1700 [facility] - Lab Result Fish Bone Diagrams: 12/15/23 04:20 12/15/23 04:20 - Additional Planning My Orders: My Active Orders 12/15/23 17:00 Insulin Lispro [Humalog Kwikpen U-100] 2 - 10 unit SUBQ 0800,1200,1700,2100 Subjective - Subjective Patient Reports: Other (Alert. Denies chest pain, shortness of breath, abdominal pain. No other complaints at this time.) Objective Vital Signs: Vital Signs - 24 hr 12/14/23 12/14/23 12/14/23 21:30 22:01 23:38 Temperature 36.7 C 36.6 C Heart Rate [ Brachial] Heart Rate [ 74 61 Radial] Respiratory 18 16 20 Rate Blood Pressure 105/54 L Blood Pressure [Left Brachial artery] Blood Pressure 104/53 L 98/51 L [Right Brachial artery] O2 Saturation 94 96 94 12/15/23 12/15/23 12/15/23 04:34 08:51 13:39 Temperature 36.5 C 36.7 C 36.7 C Heart Rate [ 62 67 68 Brachial] Heart Rate [ Radial] Respiratory 20 18 20 Rate Blood Pressure Blood Pressure 98/51 L 101/51 L [Left Brachial artery] Blood Pressure 106/47 L [Right Brachial artery] O2 Saturation 93 95 98 12/15/23 15:39 Temperature 36.8 C Heart Rate [ Brachial] Heart Rate [ 66 Radial] Respiratory 16 Rate Blood Pressure Blood Pressure 106/53 L [Left Brachial artery] Blood Pressure [Right Brachial artery] O2 Saturation 94 Oxygen O2 Source Room air I&O (Last 24 Hrs): Intake and Output Totals x24h 12/13/23 12/14/23 12/15/23 23:59 23:59 23:59 Intake Total 240 2410 Balance 240 2410 General: Alert, No acute distress Neck: Supple, No JVD, No thyromegaly Neuro: Alert, Non Focal Cardiovascular: Other (Positive S1-S2 no extra heart sounds.) Respiratory: Other (Good air exchange in all lung falcon no wheezing no crackles.) Abdomen: Other (Soft nondistended positive bowel sounds no hepatosplenomegaly) Extremities: No cyanosis, No edema Skin: No rashes - Results Results: Laboratory Results WBC 14.3 x10^3/uL (4.8-10.8) H 12/15/23 04:20 RBC 3.12 10^6/uL (4.20-5.40) L 12/15/23 04:20 Hgb 9.9 g/dL (12.0-16.0) L 12/15/23 04:20 Hct 30.9 % (37.0-47.0) L 12/15/23 04:20 MCV 99.0 fL (81.0-99.0) 12/15/23 04:20 MCH 31.7 pg (27.0-31.0) H 12/15/23 04:20 MCHC 32.0 g/dL (32.0-36.0) 12/15/23 04:20 RDW 15.5 % (12.0-15.0) H 12/15/23 04:20 Plt Count 96 10^3/uL (130-450) L 12/15/23 04:20 MPV 9.8 fL (7.9-10.8) 12/15/23 04:20 Neut # (Auto) 11.1 10^3/uL (1.5-6.6) H 12/14/23 17:37 Lymph # (Auto) 1.1 10^3/uL (1.5-3.5) L 12/14/23 17:37 [place] # (Auto) 0.9 10^3/uL (0.0-1.0) 12/14/23 17:37 Eos # (Auto) 0.0 10^3/uL (0.0-0.7) 12/14/23 17:37 Baso # (Auto) 0.0 10^3/uL (0.0-0.1) 12/14/23 17:37 Absolute Nucleated RBC 0.00 x10^3/uL 12/14/23 17:37 Nucleated RBC % 0.0 /100WBC 12/14/23 17:37 Sodium 131 mmol/L (135-145) L 12/15/23 04:20 Potassium 4.6 mmol/L (3.5-4.5) H 12/15/23 04:20 Chloride 100 mmol/L (101-111) L 12/15/23 04:20 Carbon Dioxide 23 mmol/L (21-32) 12/15/23 04:20 Anion Gap 8.0 (6-13) 12/15/23 04:20 BUN 30 mg/dL (6-20) H 12/15/23 04:20 Creatinine 1.2 mg/dL (0.6-1.3) 12/15/23 04:20 Estimated GFR (MDRD) 44 (>89) L 12/15/23 04:20 Glucose 146 mg/dL (74-104) H 12/15/23 04:20 POC Whole Bld Glucose 329 mg/dL (70 - 100) H 12/15/23 16:32 Lactic Acid 1.6 mmol/L (0.5-2.2) 12/14/23 17:37 Calcium 8.8 mg/dL (8.5-10.3) 12/15/23 04:20 Total Bilirubin 1.8 mg/dL (0.2-1.0) H 12/15/23 04:20 AST 21 IU/L (10-42) 12/15/23 04:20 ALT 16 IU/L (10-60) 12/15/23 04:20 Alkaline Phosphatase 175 IU/L (42-121) H 12/15/23 04:20 Total Protein 5.8 g/dL (6.4-8.9) L 12/15/23 04:20 Albumin 3.3 g/dL (3.2-5.5) 12/15/23 04:20 Globulin 2.5 g/dL (2.1-4.2) 12/15/23 04:20 Albumin/Globulin Ratio 1.3 (1.0-2.2) 12/15/23 04:20 Urine Color YELLOW 12/14/23 18:20 Urine Clarity CLEAR (CLEAR) 12/14/23 18:20 Urine pH 6.0 PH (5.0-7.5) 12/14/23 18:20 Ur Specific [place] 1.010 (1.002-1.030) 12/14/23 18:20 Urine Protein TRACE mg/dL (NEGATIVE) 12/14/23 18:20 Urine Glucose (UA) NEGATIVE mg/dL (NEGATIVE) 12/14/23 18:20 Urine Ketones NEGATIVE mg/dL (NEGATIVE) 12/14/23 18:20 Urine Occult Blood TRACE-INTA (NEGATIVE) 12/14/23 18:20 Urine Nitrite POSITIVE (NEGATIVE) H 12/14/23 18:20 Urine Bilirubin SMALL (NEGATIVE) H 12/14/23 18:20 Urine Urobilinogen 0.2 (NORMAL) E.U./dL (NORMAL) 12/14/23 18:20 Ur Leukocyte Esterase MODERATE (NEGATIVE) H 12/14/23 18:20 Urine RBC 6-10 /HPF (0-5) H 12/14/23 18:20 Urine WBC >25 /HPF (0-5) H 12/14/23 18:20 Urine WBC Clumps PRESENT 12/14/23 18:20 Ur Squamous Epith Cells FEW Squamous (<= Few) 12/14/23 18:20 Urine Bacteria Many /HPF (None Seen) H 12/14/23 18:20 Urine Culture Comments INDICATED 12/14/23 18:20 Nasal Adenovirus (PCR) NOT DETECTED 12/14/23 18:20 Nasal B. parapertussis DNA (PCR) NOT DETECTED 12/14/23 18:20 Nasal Coronavir 229E PCR NOT DETECTED 12/14/23 18:20 Nasal Coronavir HKU1 PCR NOT DETECTED 12/14/23 18:20 Nasal Coronavir NL63 PCR NOT DETECTED 12/14/23 18:20 Nasal Coronavir OC43 PCR NOT DETECTED 12/14/23 18:20 Nasal Enterovir/Rhinovir PCR NOT DETECTED 12/14/23 18:20 Nasal Influenza B PCR NOT DETECTED 12/14/23 18:20 Nasal Influenza A PCR NOT DETECTED 12/14/23 18:20 Nasal Parainfluen 1 PCR NOT DETECTED 12/14/23 18:20 Nasal Parainfluen 2 PCR NOT DETECTED 12/14/23 18:20 Nasal Parainfluen 3 PCR NOT DETECTED 12/14/23 18:20 Nasal Parainfluen 4 PCR NOT DETECTED 12/14/23 18:20 Nasal RSV (PCR) NOT DETECTED 12/14/23 18:20 Nasal B.pertussis DNA PCR NOT DETECTED 12/14/23 18:20 Nasal C.pneumoniae (PCR) NOT DETECTED 12/14/23 18:20 Jose Human Metapneumo PCR NOT DETECTED 12/14/23 18:20 Nasal M.pneumoniae (PCR) NOT DETECTED 12/14/23 18:20 Nasal SARS-CoV-2 (PCR) NOT DETECTED 12/14/23 18:20 Sepsis Event Note (H) - Evaluation Current Stage of Sepsis: Sepsis Possible source of Sepsis: positive: Genitourinary - Sepsis Criteria Sepsis Criteria: Recorded Respiratory Rate greater than 20, WBC count greater than 12,000 or less than 4000
[2023-12-16] MEDS: COD LIVER OIL/ZINC OXIDE 113 GM TUBE TOP PRN (11:45)
--- NOTE | 2023-12-16 21:15 | PROVIDER PROGRESS NOTE ---
Assessment/Plan - Problem List (1) UTI (urinary tract infection) Qualifiers: Urinary tract infection type: acute pyelonephritis Qualified Code(s): N10 - Acute pyelonephritis Assessment/Plan: Continue intravenous ceftriaxone 1 g daily. Await urine and blood culture results. (2) Sepsis Assessment/Plan: Highly likely to be secondary to urinary tract infection. Continue to monitor hemodynamics. (3) Diabetes Mellitus Type II Assessment/Plan: Diabetic diet and sliding scale insulin. (4) Hypertension Assessment/Plan: Patient with a relatively low blood pressure. Hold for outpatient medications and initiate if indicated. (5) Pacemaker in situ Assessment/Plan: Stable continue to monitor. - Current Meds Current Meds: Current Medications Generic Name Dose Route Start Last Admin Trade Name Freq PRN Reason Stop Dose Admin Enoxaparin Sodium 40 mg 12/15/23 09:00 12/16/23 08:39 Enoxaparin 40 Mg/0.4 Ml Syringe SUBQ Not Given DAILY [facility] Sodium Chloride 1,000 mls @ 100 mls/hr 12/14/23 21:00 12/16/23 13:56 Normal Saline 0.9% IV 100 mls/hr .Q10H [facility] Administration Ceftriaxone Sodium 1 gm/ 100 mls @ 200 mls/hr 12/15/23 10:00 12/16/23 09:10 Sodium Chloride IV Infused DAILY [facility] Infusion Insulin Human Lispro 3 - 11 unit 12/15/23 21:00 12/16/23 21:04 Insulin Lispro 300 Unit/3 Ml Pen SUBQ 9 unit 0800,1200,1700,2100 [facility] Administration Protocol Sodium Chloride 10 ml 12/15/23 01:00 12/16/23 15:25 Sodium Chloride Flush 0.9% 10 Ml Syringe IVP Not Given 0100,0900,1700 [facility] Zinc Oxide 113 gm 12/15/23 22:22 12/16/23 17:32 Cod Liver Oil/Zinc Oxide 113 Gm Tube TOP 1 applic PRN PRN Administration [facility] - Lab Result Fish Bone Diagrams: 12/15/23 04:20 12/15/23 04:20 - Additional Planning My Orders: My Active Orders 12/15/23 21:00 Insulin Lispro [Humalog Kwikpen U-100] 3 - 11 unit SUBQ 0800,1200,1700,2100 12/15/23 22:22 Cod Liver Oil/Zinc Oxide [Desitin] 113 gm TOP PRN PRN Subjective - Subjective Patient Reports: Other (Alert. Denies chest pain, shortness of breath and abdominal pain. She continues to complain of lightheadedness with ambulation.) Objective Vital Signs: Vital Signs - 24 hr 12/15/23 12/16/23 12/16/23 23:56 05:00 07:52 Temperature 36.8 C 36.6 C 36.8 C Heart Rate [ 65 60 63 Brachial] Respiratory 16 16 16 Rate Blood Pressure 109/54 L 110/52 L 111/55 L [Left Brachial artery] O2 Saturation 97 93 97 12/16/23 12/16/23 12/16/23 13:00 15:38 20:14 Temperature 36.8 C 36.6 C 36.5 C Heart Rate [ 67 63 69 Brachial] Respiratory 18 16 16 Rate Blood Pressure 115/57 L 123/64 113/68 [Left Brachial artery] O2 Saturation 97 96 96 Oxygen O2 Source Room air I&O (Last 24 Hrs): Intake and Output Totals x24h 12/14/23 12/15/23 12/16/23 23:59 23:59 23:59 Intake Total 240 2710 2961.667 Balance 240 2710 2961.667 General: Alert, Oriented x3, No acute distress Neck: No JVD Neuro: Alert, Non Focal Cardiovascular: Other (Positive S1-S2 no extra heart sounds.) Respiratory: Other (Good air exchange in all lung falcon no wheezing no crackles.) Abdomen: Other (Positive bowel sounds soft nontender) Extremities: No cyanosis, No edema Skin: No rashes - Results Results: Laboratory Results WBC 14.3 x10^3/uL (4.8-10.8) H 12/15/23 04:20 RBC 3.12 10^6/uL (4.20-5.40) L 12/15/23 04:20 Hgb 9.9 g/dL (12.0-16.0) L 12/15/23 04:20 Hct 30.9 % (37.0-47.0) L 12/15/23 04:20 MCV 99.0 fL (81.0-99.0) 12/15/23 04:20 MCH 31.7 pg (27.0-31.0) H 12/15/23 04:20 MCHC 32.0 g/dL (32.0-36.0) 12/15/23 04:20 RDW 15.5 % (12.0-15.0) H 12/15/23 04:20 Plt Count 96 10^3/uL (130-450) L 12/15/23 04:20 MPV 9.8 fL (7.9-10.8) 12/15/23 04:20 Neut # (Auto) 11.1 10^3/uL (1.5-6.6) H 12/14/23 17:37 Lymph # (Auto) 1.1 10^3/uL (1.5-3.5) L 12/14/23 17:37 [place] # (Auto) 0.9 10^3/uL (0.0-1.0) 12/14/23 17:37 Eos # (Auto) 0.0 10^3/uL (0.0-0.7) 12/14/23 17:37 Baso # (Auto) 0.0 10^3/uL (0.0-0.1) 12/14/23 17:37 Absolute Nucleated RBC 0.00 x10^3/uL 12/14/23 17:37 Nucleated RBC % 0.0 /100WBC 12/14/23 17:37 Sodium 131 mmol/L (135-145) L 12/15/23 04:20 Potassium 4.6 mmol/L (3.5-4.5) H 12/15/23 04:20 Chloride 100 mmol/L (101-111) L 12/15/23 04:20 Carbon Dioxide 23 mmol/L (21-32) 12/15/23 04:20 Anion Gap 8.0 (6-13) 12/15/23 04:20 BUN 30 mg/dL (6-20) H 12/15/23 04:20 Creatinine 1.2 mg/dL (0.6-1.3) 12/15/23 04:20 Estimated GFR (MDRD) 44 (>89) L 12/15/23 04:20 Glucose 146 mg/dL (74-104) H 12/15/23 04:20 POC Whole Bld Glucose 290 mg/dL (70 - 100) H 12/16/23 20:31 Lactic Acid 1.6 mmol/L (0.5-2.2) 12/14/23 17:37 Calcium 8.8 mg/dL (8.5-10.3) 12/15/23 04:20 Total Bilirubin 1.8 mg/dL (0.2-1.0) H 12/15/23 04:20 AST 21 IU/L (10-42) 12/15/23 04:20 ALT 16 IU/L (10-60) 12/15/23 04:20 Alkaline Phosphatase 175 IU/L (42-121) H 12/15/23 04:20 Total Protein 5.8 g/dL (6.4-8.9) L 12/15/23 04:20 Albumin 3.3 g/dL (3.2-5.5) 12/15/23 04:20 Globulin 2.5 g/dL (2.1-4.2) 12/15/23 04:20 Albumin/Globulin Ratio 1.3 (1.0-2.2) 12/15/23 04:20 Urine Color YELLOW 12/14/23 18:20 Urine Clarity CLEAR (CLEAR) 12/14/23 18:20 Urine pH 6.0 PH (5.0-7.5) 12/14/23 18:20 Ur Specific [place] 1.010 (1.002-1.030) 12/14/23 18:20 Urine Protein TRACE mg/dL (NEGATIVE) 12/14/23 18:20 Urine Glucose (UA) NEGATIVE mg/dL (NEGATIVE) 12/14/23 18:20 Urine Ketones NEGATIVE mg/dL (NEGATIVE) 12/14/23 18:20 Urine Occult Blood TRACE-INTA (NEGATIVE) 12/14/23 18:20 Urine Nitrite POSITIVE (NEGATIVE) H 12/14/23 18:20 Urine Bilirubin SMALL (NEGATIVE) H 12/14/23 18:20 Urine Urobilinogen 0.2 (NORMAL) E.U./dL (NORMAL) 12/14/23 18:20 Ur Leukocyte Esterase MODERATE (NEGATIVE) H 12/14/23 18:20 Urine RBC 6-10 /HPF (0-5) H 12/14/23 18:20 Urine WBC >25 /HPF (0-5) H 12/14/23 18:20 Urine WBC Clumps PRESENT 12/14/23 18:20 Ur Squamous Epith Cells FEW Squamous (<= Few) 12/14/23 18:20 Urine Bacteria Many /HPF (None Seen) H 12/14/23 18:20 Urine Culture Comments INDICATED 12/14/23 18:20 Nasal Adenovirus (PCR) NOT DETECTED 12/14/23 18:20 Nasal B. parapertussis DNA (PCR) NOT DETECTED 12/14/23 18:20 Nasal Coronavir 229E PCR NOT DETECTED 12/14/23 18:20 Nasal Coronavir HKU1 PCR NOT DETECTED 12/14/23 18:20 Nasal Coronavir NL63 PCR NOT DETECTED 12/14/23 18:20 Nasal Coronavir OC43 PCR NOT DETECTED 12/14/23 18:20 Nasal Enterovir/Rhinovir PCR NOT DETECTED 12/14/23 18:20 Nasal Influenza B PCR NOT DETECTED 12/14/23 18:20 Nasal Influenza A PCR NOT DETECTED 12/14/23 18:20 Nasal Parainfluen 1 PCR NOT DETECTED 12/14/23 18:20 Nasal Parainfluen 2 PCR NOT DETECTED 12/14/23 18:20 Nasal Parainfluen 3 PCR NOT DETECTED 12/14/23 18:20 Nasal Parainfluen 4 PCR NOT DETECTED 12/14/23 18:20 Nasal RSV (PCR) NOT DETECTED 12/14/23 18:20 Nasal B.pertussis DNA PCR NOT DETECTED 12/14/23 18:20 Nasal C.pneumoniae (PCR) NOT DETECTED 12/14/23 18:20 Jose Human Metapneumo PCR NOT DETECTED 12/14/23 18:20 Nasal M.pneumoniae (PCR) NOT DETECTED 12/14/23 18:20 Nasal SARS-CoV-2 (PCR) NOT DETECTED 12/14/23 18:20 Sepsis Event Note (H) - Evaluation Current Stage of Sepsis: Sepsis Possible source of Sepsis: positive: Genitourinary - Sepsis Criteria Sepsis Criteria: Recorded Respiratory Rate greater than 20, WBC count greater than 12,000 or less than 4000 ABX Reporting Has patient been on IV antibiotics over the past 48 hours?: Yes
[2023-12-17 05:56] LABS: HCT - HEMATOCRIT 33.2 % (37.0-47.0); MEAN CORPUSCULAR HEMOGLOBIN 33.3 pg (27.0-31.0); MEAN CORPUSCULAR HGB CONC 33.1 g/dL (32.0-36.0); MEAN CORPUSCULAR VOLUME 100.6 fL (81.0-99.0); RED BLOOD COUNT 3.3 10^6/uL (4.20-5.40); RED CELL DISTRIBUTION WIDTH 15.5 % (12.0-15.0); WHITE BLOOD COUNT 8.5 x10^3/uL (4.8-10.8)
[2023-12-17 06:09] LABS: CALCIUM 8.6 mg/dL (8.5-10.3); PHOSPHORUS 3.1 mg/dL (2.5-5.0); POTASSIUM 4.5 mmol/L (3.5-4.5)
--- NOTE | 2023-12-17 23:14 | PROVIDER PROGRESS NOTE ---
Assessment/Plan - Problem List (1) UTI (urinary tract infection) Qualifiers: Urinary tract infection type: acute pyelonephritis Qualified Code(s): N10 - Acute pyelonephritis Assessment/Plan: Continue intravenous ceftriaxone 1 g daily. Urine culture has grown Staphylococcus [place]ensis Patient encouraged to be up in the chair during meals and is much as possible. (2) Sepsis Assessment/Plan: Resolving Highly likely to be secondary to urinary tract infection. Continue to monitor hemodynamics. (3) Diabetes Mellitus Type II Assessment/Plan: Diabetic diet and sliding scale insulin. (4) Hypertension Assessment/Plan: Patient with a relatively low blood pressure. Hold for outpatient medications and initiate if indicated. (5) Pacemaker in situ Assessment/Plan: Stable continue to monitor. - Current Meds Current Meds: Current Medications Generic Name Dose Route Start Last Admin Trade Name Freq PRN Reason Stop Dose Admin Enoxaparin Sodium 40 mg 12/15/23 09:00 12/17/23 09:15 Enoxaparin 40 Mg/0.4 Ml Syringe SUBQ Not Given DAILY [facility] Sodium Chloride 1,000 mls @ 100 mls/hr 12/14/23 21:00 12/17/23 21:41 Normal Saline 0.9% IV Infused .Q10H [facility] Infusion Ceftriaxone Sodium 1 gm/ 100 mls @ 200 mls/hr 12/15/23 10:00 12/17/23 09:50 Sodium Chloride IV Infused DAILY [facility] Infusion Insulin Human Lispro 3 - 11 unit 12/15/23 21:00 12/17/23 22:09 Insulin Lispro 300 Unit/3 Ml Pen SUBQ 7 unit 0800,1200,1700,2100 [facility] Administration Protocol Sodium Chloride 10 ml 12/15/23 01:00 12/17/23 16:43 Sodium Chloride Flush 0.9% 10 Ml Syringe IVP 10 ml 0100,0900,1700 [facility] Administration Zinc Oxide 113 gm 12/15/23 22:22 12/16/23 17:32 Cod Liver Oil/Zinc Oxide 113 Gm Tube TOP 1 applic PRN PRN Administration Skin Care - Lab Result Fish Bone Diagrams: 12/17/23 05:34 12/17/23 05:34 - Additional Planning My Orders: My Active Orders 12/17/23 Evaluate and Treat OT [OT] Routine Evaluate and Treat PT [PT] Routine Subjective - Subjective Patient Reports: Other (Alert. Denies chest pain, shortness of breath and abdominal pain. No other complaints at this time.) Objective Vital Signs: Vital Signs - 24 hr 12/17/23 12/17/23 12/17/23 00:09 05:00 09:00 Temperature 36.8 C 36.7 C 37.1 C Heart Rate [ 66 70 83 Brachial] Heart Rate [ Sitting] Heart Rate [ Standing] Heart Rate [ Supine] Respiratory 18 18 20 Rate Blood Pressure 123/67 124/65 124/65 [Left Brachial artery] Blood Pressure [Sitting] Blood Pressure [Standing] Blood Pressure [Supine] O2 Saturation 96 95 96 O2 Saturation [ Sitting] O2 Saturation [ Supine] 12/17/23 12/17/23 12/17/23 13:00 14:00 15:51 Temperature 36.8 C 36.9 C Heart Rate [ 86 61 Brachial] Heart Rate [ 67 Sitting] Heart Rate [ 62 Standing] Heart Rate [ 70 Supine] Respiratory 20 18 Rate Blood Pressure 125/58 L 123/56 L [Left Brachial artery] Blood Pressure 122/64 [Sitting] Blood Pressure 125/58 L [Standing] Blood Pressure 119/66 [Supine] O2 Saturation 96 97 O2 Saturation [ 97 Sitting] O2 Saturation [ 97 Supine] 12/17/23 20:59 Temperature 36.8 C Heart Rate [ 66 Brachial] Heart Rate [ Sitting] Heart Rate [ Standing] Heart Rate [ Supine] Respiratory 20 Rate Blood Pressure 126/67 [Left Brachial artery] Blood Pressure [Sitting] Blood Pressure [Standing] Blood Pressure [Supine] O2 Saturation 96 O2 Saturation [ Sitting] O2 Saturation [ Supine] Oxygen O2 Source Room air I&O (Last 24 Hrs): Intake and Output Totals x24h 12/15/23 12/16/23 12/17/23 23:59 23:59 23:59 Intake Total 2710 4205.000 3720 Balance 2710 4205.000 3720 General: Alert, Oriented x3, No acute distress HEENT: Atraumatic Neck: No JVD, No thyromegaly Neuro: Alert, Non Focal Cardiovascular: Other (Positive S1-S2 no extra heart sounds.) Respiratory: Other (Good air exchange in all lung falcon no wheezing no crackles.) Abdomen: Other (Soft nontender nondistended positive bowel sounds) Extremities: No cyanosis, No edema Skin: No rashes - Results Results: Laboratory Results WBC 8.5 x10^3/uL (4.8-10.8) 12/17/23 05:34 RBC 3.30 10^6/uL (4.20-5.40) L 12/17/23 05:34 Hgb 11.0 g/dL (12.0-16.0) L 12/17/23 05:34 Hct 33.2 % (37.0-47.0) L 12/17/23 05:34 MCV 100.6 fL (81.0-99.0) H 12/17/23 05:34 MCH 33.3 pg (27.0-31.0) H 12/17/23 05:34 MCHC 33.1 g/dL (32.0-36.0) 12/17/23 05:34 RDW 15.5 % (12.0-15.0) H 12/17/23 05:34 Plt Count 113 10^3/uL (130-450) L 12/17/23 05:34 MPV 10.0 fL (7.9-10.8) 12/17/23 05:34 Neut # (Auto) 11.1 10^3/uL (1.5-6.6) H 12/14/23 17:37 Lymph # (Auto) 1.1 10^3/uL (1.5-3.5) L 12/14/23 17:37 [place] # (Auto) 0.9 10^3/uL (0.0-1.0) 12/14/23 17:37 Eos # (Auto) 0.0 10^3/uL (0.0-0.7) 12/14/23 17:37 Baso # (Auto) 0.0 10^3/uL (0.0-0.1) 12/14/23 17:37 Absolute Nucleated RBC 0.00 x10^3/uL 12/14/23 17:37 Nucleated RBC % 0.0 /100WBC 12/14/23 17:37 Sodium 133 mmol/L (135-145) L 12/17/23 05:34 Potassium 4.5 mmol/L (3.5-4.5) 12/17/23 05:34 Chloride 107 mmol/L (101-111) 12/17/23 05:34 Carbon Dioxide 19 mmol/L (21-32) L 12/17/23 05:34 Anion Gap 7.0 (6-13) 12/17/23 05:34 BUN 31 mg/dL (6-20) H 12/17/23 05:34 Creatinine 1.0 mg/dL (0.6-1.3) 12/17/23 05:34 Estimated GFR (MDRD) 54 (>89) L 12/17/23 05:34 Glucose 138 mg/dL (74-104) H 12/17/23 05:34 POC Whole Bld Glucose 226 mg/dL (70 - 100) H 12/17/23 20:24 Lactic Acid 1.6 mmol/L (0.5-2.2) 12/14/23 17:37 Calcium 8.6 mg/dL (8.5-10.3) 12/17/23 05:34 Phosphorus 3.1 mg/dL (2.5-5.0) 12/17/23 05:34 Magnesium 1.8 mg/dL (1.7-2.3) 12/17/23 05:34 Total Bilirubin 1.8 mg/dL (0.2-1.0) H 12/15/23 04:20 AST 21 IU/L (10-42) 12/15/23 04:20 ALT 16 IU/L (10-60) 12/15/23 04:20 Alkaline Phosphatase 175 IU/L (42-121) H 12/15/23 04:20 Total Protein 5.8 g/dL (6.4-8.9) L 12/15/23 04:20 Albumin 3.3 g/dL (3.2-5.5) 12/15/23 04:20 Globulin 2.5 g/dL (2.1-4.2) 12/15/23 04:20 Albumin/Globulin Ratio 1.3 (1.0-2.2) 12/15/23 04:20 Urine Color YELLOW 12/14/23 18:20 Urine Clarity CLEAR (CLEAR) 12/14/23 18:20 Urine pH 6.0 PH (5.0-7.5) 12/14/23 18:20 Ur Specific [place] 1.010 (1.002-1.030) 12/14/23 18:20 Urine Protein TRACE mg/dL (NEGATIVE) 12/14/23 18:20 Urine Glucose (UA) NEGATIVE mg/dL (NEGATIVE) 12/14/23 18:20 Urine Ketones NEGATIVE mg/dL (NEGATIVE) 12/14/23 18:20 Urine Occult Blood TRACE-INTA (NEGATIVE) 12/14/23 18:20 Urine Nitrite POSITIVE (NEGATIVE) H 12/14/23 18:20 Urine Bilirubin SMALL (NEGATIVE) H 12/14/23 18:20 Urine Urobilinogen 0.2 (NORMAL) E.U./dL (NORMAL) 12/14/23 18:20 Ur Leukocyte Esterase MODERATE (NEGATIVE) H 12/14/23 18:20 Urine RBC 6-10 /HPF (0-5) H 12/14/23 18:20 Urine WBC >25 /HPF (0-5) H 12/14/23 18:20 Urine WBC Clumps PRESENT 12/14/23 18:20 Ur Squamous Epith Cells FEW Squamous (<= Few) 12/14/23 18:20 Urine Bacteria Many /HPF (None Seen) H 12/14/23 18:20 Urine Culture Comments INDICATED 12/14/23 18:20 Nasal Adenovirus (PCR) NOT DETECTED 12/14/23 18:20 Nasal B. parapertussis DNA (PCR) NOT DETECTED 12/14/23 18:20 Nasal Coronavir 229E PCR NOT DETECTED 12/14/23 18:20 Nasal Coronavir HKU1 PCR NOT DETECTED 12/14/23 18:20 Nasal Coronavir NL63 PCR NOT DETECTED 12/14/23 18:20 Nasal Coronavir OC43 PCR NOT DETECTED 12/14/23 18:20 Nasal Enterovir/Rhinovir PCR NOT DETECTED 12/14/23 18:20 Nasal Influenza B PCR NOT DETECTED 12/14/23 18:20 Nasal Influenza A PCR NOT DETECTED 12/14/23 18:20 Nasal Parainfluen 1 PCR NOT DETECTED 12/14/23 18:20 Nasal Parainfluen 2 PCR NOT DETECTED 12/14/23 18:20 Nasal Parainfluen 3 PCR NOT DETECTED 12/14/23 18:20 Nasal Parainfluen 4 PCR NOT DETECTED 12/14/23 18:20 Nasal RSV (PCR) NOT DETECTED 12/14/23 18:20 Nasal B.pertussis DNA PCR NOT DETECTED 12/14/23 18:20 Nasal C.pneumoniae (PCR) NOT DETECTED 12/14/23 18:20 Jose Human Metapneumo PCR NOT DETECTED 12/14/23 18:20 Nasal M.pneumoniae (PCR) NOT DETECTED 12/14/23 18:20 Nasal SARS-CoV-2 (PCR) NOT DETECTED 12/14/23 18:20 Sepsis Event Note (H) - Evaluation Current Stage of Sepsis: Sepsis Possible source of Sepsis: positive: Genitourinary - Sepsis Criteria Sepsis Criteria: Recorded Respiratory Rate greater than 20, WBC count greater than 12,000 or less than 4000
[2023-12-18 06:04] LABS: CALCIUM 8.7 mg/dL (8.5-10.3); MAGNESIUM 1.7 mg/dL (1.7-2.3); PHOSPHORUS 2.7 mg/dL (2.5-5.0); POTASSIUM 4.4 mmol/L (3.5-4.5)
--- NOTE | 2023-12-18 21:58 | PROVIDER PROGRESS NOTE ---
Assessment/Plan - Problem List (1) UTI (urinary tract infection) Qualifiers: Urinary tract infection type: acute pyelonephritis Qualified Code(s): N10 - Acute pyelonephritis Assessment/Plan: Continue intravenous ceftriaxone 1 g daily. Urine culture has grown Staphylococcus Lugdunensis that is sensitive to everything but clindmycin. Patient encouraged to be up in the chair during meals and is much as possible. (2) Sepsis Assessment/Plan: Resolving Highly likely to be secondary to urinary tract infection. Continue to monitor hemodynamics. (3) Diabetes Mellitus Type II Assessment/Plan: Diabetic diet and sliding scale insulin. (4) Hypertension Assessment/Plan: Patient with a relatively low blood pressure. Hold for outpatient medications and initiate if indicated. (5) Pacemaker in situ Assessment/Plan: Stable continue to monitor. (5) Hypertension Assessment/Plan: Reinitiate treatment with carvedilol, lasix and spironolactone. - Current Meds Current Meds: Current Medications Generic Name Dose Route Start Last Admin Trade Name Freq PRN Reason Stop Dose Admin Enoxaparin Sodium 40 mg 12/15/23 09:00 12/18/23 08:08 Enoxaparin 40 Mg/0.4 Ml Syringe SUBQ Not Given DAILY [facility] Ceftriaxone Sodium 1 gm/ 100 mls @ 200 mls/hr 12/15/23 10:00 12/18/23 08:38 Sodium Chloride IV Infused DAILY [facility] Infusion Insulin Human Lispro 3 - 11 unit 12/15/23 21:00 12/18/23 20:43 Insulin Lispro 300 Unit/3 Ml Pen SUBQ 7 unit 0800,1200,1700,2100 [facility] Administration Protocol Sodium Chloride 10 ml 12/15/23 01:00 12/18/23 16:31 Sodium Chloride Flush 0.9% 10 Ml Syringe IVP 10 ml 0100,0900,1700 CARO Administration Zinc Oxide 113 gm 12/15/23 22:22 12/16/23 17:32 Cod Liver Oil/Zinc Oxide 113 Gm Tube TOP 1 applic PRN PRN Administration Skin Care - Lab Result Fish Bone Diagrams: 12/17/23 05:34 12/18/23 05:31 - Additional Planning My Orders: My Active Orders 12/19/23 09:00 Aspirin Chewable [St Tiim Aspirin] 81 mg PO DAILY Atorvastatin [Lipitor] 40 mg PO DAILY Carvedilol [Carvedilol] 6.25 mg PO BID Furosemide [Lasix] 40 mg PO DAILY Spironolactone [Aldactone] 12.5 mg PO DAILY Subjective - Subjective Patient Reports: Other (Alert. Overall symptoms are improving. Denies chest pain, shortness of breath and abdominal pain. No other complaints at this time.) Objective Vital Signs: Vital Signs - 24 hr 12/18/23 12/18/23 12/18/23 00:15 05:00 08:02 Temperature 36.8 C 36.5 C 36.6 C Heart Rate [ 64 63 65 Brachial] Respiratory 18 18 24 Rate Blood Pressure 123/72 123/69 127/62 [Left Brachial artery] Blood Pressure 97/58 L [Right Brachial artery] O2 Saturation 95 96 97 12/18/23 12/18/23 12/18/23 12:49 16:01 20:53 Temperature 36.4 C L 36.6 C 36.6 C Heart Rate [ 61 66 61 Brachial] Respiratory 20 16 18 Rate Blood Pressure 130/66 134/70 H 132/67 H [Left Brachial artery] Blood Pressure [Right Brachial artery] O2 Saturation 99 96 95 Oxygen O2 Source Room air I&O (Last 24 Hrs): Intake and Output Totals x24h 12/16/23 12/17/23 12/18/23 23:59 23:59 23:59 Intake Total 4205.000 3720 1280 Balance 4205.000 3720 1280 General: Alert, Oriented x3, Cooperative, No acute distress HEENT: Atraumatic Neck: Supple, No JVD Neuro: Disoriented, Non Focal Cardiovascular: Other (Positive S1-S2 no extra heart sounds.) Respiratory: Other (Good air exchange in all lung falcon no wheezing no crackles.) Abdomen: Other (Soft nontender positive bowel sounds) Extremities: No cyanosis, No edema Skin: No rashes - Results Results: Laboratory Results WBC 8.5 x10^3/uL (4.8-10.8) 12/17/23 05:34 RBC 3.30 10^6/uL (4.20-5.40) L 12/17/23 05:34 Hgb 11.0 g/dL (12.0-16.0) L 12/17/23 05:34 Hct 33.2 % (37.0-47.0) L 12/17/23 05:34 MCV 100.6 fL (81.0-99.0) H 12/17/23 05:34 MCH 33.3 pg (27.0-31.0) H 12/17/23 05:34 MCHC 33.1 g/dL (32.0-36.0) 12/17/23 05:34 RDW 15.5 % (12.0-15.0) H 12/17/23 05:34 Plt Count 113 10^3/uL (130-450) L 12/17/23 05:34 MPV 10.0 fL (7.9-10.8) 12/17/23 05:34 Neut # (Auto) 11.1 10^3/uL (1.5-6.6) H 12/14/23 17:37 Lymph # (Auto) 1.1 10^3/uL (1.5-3.5) L 12/14/23 17:37 [place] # (Auto) 0.9 10^3/uL (0.0-1.0) 12/14/23 17:37 Eos # (Auto) 0.0 10^3/uL (0.0-0.7) 12/14/23 17:37 Baso # (Auto) 0.0 10^3/uL (0.0-0.1) 12/14/23 17:37 Absolute Nucleated RBC 0.00 x10^3/uL 12/14/23 17:37 Nucleated RBC % 0.0 /100WBC 12/14/23 17:37 Sodium 134 mmol/L (135-145) L 12/18/23 05:31 Potassium 4.4 mmol/L (3.5-4.5) 12/18/23 05:31 Chloride 109 mmol/L (101-111) 12/18/23 05:31 Carbon Dioxide 18 mmol/L (21-32) L 12/18/23 05:31 Anion Gap 7.0 (6-13) 12/18/23 05:31 BUN 27 mg/dL (6-20) H 12/18/23 05:31 Creatinine 1.0 mg/dL (0.6-1.3) 12/18/23 05:31 Estimated GFR (MDRD) 54 (>89) L 12/18/23 05:31 Glucose 115 mg/dL (74-104) H 12/18/23 05:31 POC Whole Bld Glucose 268 mg/dL (70 - 100) H 12/18/23 20:38 Lactic Acid 1.6 mmol/L (0.5-2.2) 12/14/23 17:37 Calcium 8.7 mg/dL (8.5-10.3) 12/18/23 05:31 Phosphorus 2.7 mg/dL (2.5-5.0) 12/18/23 05:31 Magnesium 1.7 mg/dL (1.7-2.3) 12/18/23 05:31 Total Bilirubin 1.8 mg/dL (0.2-1.0) H 12/15/23 04:20 AST 21 IU/L (10-42) 12/15/23 04:20 ALT 16 IU/L (10-60) 12/15/23 04:20 Alkaline Phosphatase 175 IU/L (42-121) H 12/15/23 04:20 Total Protein 5.8 g/dL (6.4-8.9) L 12/15/23 04:20 Albumin 3.3 g/dL (3.2-5.5) 12/15/23 04:20 Globulin 2.5 g/dL (2.1-4.2) 12/15/23 04:20 Albumin/Globulin Ratio 1.3 (1.0-2.2) 12/15/23 04:20 Urine Color YELLOW 12/14/23 18:20 Urine Clarity CLEAR (CLEAR) 12/14/23 18:20 Urine pH 6.0 PH (5.0-7.5) 12/14/23 18:20 Ur Specific [place] 1.010 (1.002-1.030) 12/14/23 18:20 Urine Protein TRACE mg/dL (NEGATIVE) 12/14/23 18:20 Urine Glucose (UA) NEGATIVE mg/dL (NEGATIVE) 12/14/23 18:20 Urine Ketones NEGATIVE mg/dL (NEGATIVE) 12/14/23 18:20 Urine Occult Blood TRACE-INTA (NEGATIVE) 12/14/23 18:20 Urine Nitrite POSITIVE (NEGATIVE) H 12/14/23 18:20 Urine Bilirubin SMALL (NEGATIVE) H 12/14/23 18:20 Urine Urobilinogen 0.2 (NORMAL) E.U./dL (NORMAL) 12/14/23 18:20 Ur Leukocyte Esterase MODERATE (NEGATIVE) H 12/14/23 18:20 Urine RBC 6-10 /HPF (0-5) H 12/14/23 18:20 Urine WBC >25 /HPF (0-5) H 12/14/23 18:20 Urine WBC Clumps PRESENT 12/14/23 18:20 Ur Squamous Epith Cells FEW Squamous (<= Few) 12/14/23 18:20 Urine Bacteria Many /HPF (None Seen) H 12/14/23 18:20 Urine Culture Comments INDICATED 12/14/23 18:20 Nasal Adenovirus (PCR) NOT DETECTED 12/14/23 18:20 Nasal B. parapertussis DNA (PCR) NOT DETECTED 12/14/23 18:20 Nasal Coronavir 229E PCR NOT DETECTED 12/14/23 18:20 Nasal Coronavir HKU1 PCR NOT DETECTED 12/14/23 18:20 Nasal Coronavir NL63 PCR NOT DETECTED 12/14/23 18:20 Nasal Coronavir OC43 PCR NOT DETECTED 12/14/23 18:20 Nasal Enterovir/Rhinovir PCR NOT DETECTED 12/14/23 18:20 Nasal Influenza B PCR NOT DETECTED 12/14/23 18:20 Nasal Influenza A PCR NOT DETECTED 12/14/23 18:20 Nasal Parainfluen 1 PCR NOT DETECTED 12/14/23 18:20 Nasal Parainfluen 2 PCR NOT DETECTED 12/14/23 18:20 Nasal Parainfluen 3 PCR NOT DETECTED 12/14/23 18:20 Nasal Parainfluen 4 PCR NOT DETECTED 12/14/23 18:20 Nasal RSV (PCR) NOT DETECTED 12/14/23 18:20 Nasal B.pertussis DNA PCR NOT DETECTED 12/14/23 18:20 Nasal C.pneumoniae (PCR) NOT DETECTED 12/14/23 18:20 Jose Human Metapneumo PCR NOT DETECTED 12/14/23 18:20 Nasal M.pneumoniae (PCR) NOT DETECTED 12/14/23 18:20 Nasal SARS-CoV-2 (PCR) NOT DETECTED 12/14/23 18:20 Sepsis Event Note (H) - Evaluation Current Stage of Sepsis: Sepsis Possible source of Sepsis: positive: Genitourinary - Sepsis Criteria Sepsis Criteria: Recorded Respiratory Rate greater than 20, WBC count greater than 12,000 or less than 4000
[2023-12-19] MEDS: FUROSEMIDE 40 MG TABLET PO SCH (08:17)
[2023-12-19] MEDS: SPIRONOLACTONE 25 MG TABLET PO SCH (08:18)
[2023-12-19] MEDS: ASPIRIN EC 81 MG TABLET PO SCH (08:18)
[2023-12-19] MEDS: ATORVASTATIN 40 MG TABLET PO SCH (08:18)
[2023-12-19] MEDS: carvediloL 3.125 MG TABLET PO SCH (08:18)
[2023-12-19] MEDS ORDERED: ASPIRIN CHEW 81 MG TABLET PO SCH (09:00)
[2023-12-19] MEDS ORDERED: CARVEDILOL 6.25 MG PO SCH (09:00)
--- NOTE | 2023-12-19 12:27 | Discharge Plan ---
Discharge Plan Problem Reviewed?: Yes Disposition: Home, Self Care Condition: Serious Diet: Diabetic Activity Restrictions: Activity as Tolerated Shower Restrictions: No Driving Restrictions: No Assistance Devices: Walker, Cane Weight Bearing: Full Weight Instruction Topics: UTI Health Concerns: History of Present Illness per Dr. Emperatriz Adams's history and physical: Ms Burnett is a 73 yo F with history of DM II, HTN, pacemaker. Presents to ER with complaints of fatigue, weakness. Pt reports onset of shaking chills this afternoon mid-day, associated with fatigue and feeling "loopy". She is feeling better now since receiving antibiotics. Denies fevers. [place] nauseous earlier today. Denies vomiting, denies abd pain, suprapubic pain or hematuria. Reports she recently took an antifungal for a vaginal yeast infection. Denies any recent antibiotics or recent UTI history. Hospital Course: In the emergency room, patient underwent a chest x-ray which revealed mild cardiomegaly without evidence of congestive heart failure or any opacities. She was admitted to the hospital with a status of inpatient and a diagnosis of sepsis secondary to urinary tract infection. Treatment was initiated with ceftriaxone 1 g daily. She received IV fluids for hydration. She received sliding scale insulin for her type 2 diabetes mellitus. Her antihypertensive medications were withheld due to low blood pressures. Urine culture grew out Staphylococcus Lugdunensis that was sensitive to all ant ibiotics except clindamycin. For the first 3 days of her hospitalization patient complained of significant dizziness/lightheadedness upon standing and ambulation. On hospital day #4, her symptoms of dizziness/lightheadedness resolved and her blood pressure appeared to increase. Her outpatient antihypertensive medications were all initiated except for losartan. During her hospitalization, patient received 5 doses of ceftriaxone.No other antibiotics were prescribed because patient could not pick them up for more than 2 days. Patient is now stable for discharge to home. CODE STATUS upon discharge full code. Plan of Treatment: 1. Take all medications as prescribed. 2. Please follow-up with your primary care provider Dr. Junior Aguirre in 2 to 4 weeks. 3. Please discontinue taking losartan. This medication has been discontinued due to the fact that your blood pressure probably could not tolerate reinitiating this medication at this time. Please discuss reinitiating this medication with your primary care provider. Care Goals: Goals of care is to improve strength and balance and return to baseline to continue with independent living. Assessment: (1) UTI (urinary tract infection) Qualifiers: Urinary tract infection type: acute pyelonephritis Qualified Code(s): N10 - Acute pyelonephritis Assessment/Plan: Patient received 5 days of ceftriaxone in the hospital. No other antibiotics were given because patient could not pick them up for more than 2 days. Urine culture has grown Staphylococcus Lugdunensis that is sensitive to everything but clindmycin. (2) Sepsis Assessment/Plan: Resolved (3) Diabetes Mellitus Type II Assessment/Plan: Continue outpatient medications for diabetes mellitus type II (4) Hypertension Assessment/Plan: Patient with a relatively low blood pressure. Hold for outpatient medications and initiate if indicated. (5) Pacemaker in situ Assessment/Plan: Stable continue to monitor. (5) Hypertension Assessment/Plan: Reinitiate treatment with carvedilol, lasix and spironolactone.Losartan will be discontinued and recommend patient discuss reinitiation with her primary care provider Follow-Up Care: Home Health - PT, Home Health - OT No Smoking: If you smoke, Please STOP! Call for help. Follow-up with: Junior Aguirre MD [Primary Care Provider] -
--- NOTE | 2023-12-19 12:27 | DISCHARGE SUMMARY ---
Discharge Summary Admit Date: 12/14/23 Discharge Date: 12/19/23 Discharging Provider: Yaron Goodwin MD Primary Care Provider: Junior Aguirre Code Status: Attempt Resuscitation Condition at Discharge: Stable Discharge Disposition: 01 Home, Self Care Discharge Facility Name: [facility] - DIAGNOSES Admission Diagnoses: 1. Sepsis Due to urinary tract infection Discharge Diagnoses with Status of Each Condition: (1) UTI (urinary tract infection) (2) Sepsis (3) Diabetes Mellitus Type II (4) Hypertension (5) Pacemaker in situ (6) Hypertension - HPI History of Present Illness: History of Present Illness per Dr. Emperatriz Adams's history and physical: Ms Burnett is a 73 yo F with history of DM II, HTN, pacemaker. Presents to ER with complaints of fatigue, weakness. Pt reports onset of shaking chills this afternoon mid-day, associated with fatigue and feeling "loopy". She is feeling better now since receiving antibiotics. Denies fevers. [place] nauseous earlier today. Denies vomiting, denies abd pain, suprapubic pain or hematuria. Reports she recently took an antifungal for a vaginal yeast infection. Denies any recent antibiotics or recent UTI history. - HOSPITAL COURSE Hospital Course: In the emergency room, patient underwent a chest x-ray which revealed mild cardiomegaly without evidence of congestive heart failure or any opacities. She was admitted to the hospital with a status of inpatient and a diagnosis of sepsis secondary to urinary tract infection. Treatment was initiated with ceftriaxone 1 g daily. She received IV fluids for hydration. She received sliding scale insulin for her type 2 diabetes mellitus. Her antihypertensive medications were withheld due to low blood pressures. Urine culture grew out Staphylococcus Lugdunensis that was sensitive to all antibiotics except clindamycin. For the first 3 days of her hospitalization patient complained of significant dizziness/lightheadedness upon standing and ambulation. On hospital day #4, her symptoms of dizziness/lightheadedness resolved and her blood pressure appeared to increase. Her outpatient antihypertensive medications were all initiated except for losartan. During her hospitalization, patient received 5 doses of ceftriaxone.No other antibiotics were prescribed because patient could not pick them up for more than 2 days. Patient is now stable for discharge to home. CODE STATUS upon discharge full code. - ALLERGIES Allergies/Adverse Reactions: Allergies Allergy/AdvReac Type Severity Reaction Status Date / Time ibuprofen Allergy Intermediate GI upset Verified 12/14/23 17:27 morphine Allergy Unknown Unknown Verified 12/14/23 17:27 shellfish Allergy Unknown Uncoded 12/14/23 17:27 - MEDICATIONS Home Medications: Ambulatory Orders Medication Instructions Recorded Confirmed Carvedilol 6.25 mg PO BID 12/25/16 12/15/23 EPINEPHrine [Epipen 2-Pranay] 0.3 mg SUBQ PRN PRN 12/25/16 12/15/23 Furosemide 40 mg PO DAILY 12/25/16 12/15/23 Metformin HCl [Metformin ER 1,500 mg PO QDBREAKFAST 12/25/16 12/15/23 Osmotic] Aspirin Chewable [St Timi 81 mg PO DAILY 12/15/23 12/15/23 Aspirin] Atorvastatin [Lipitor] 40 mg PO DAILY 12/15/23 12/15/23 Clotrimazole 1% Cream [Lotrimin 1% 1 gm TOP UD PRN 12/15/23 12/15/23 Cream] Insulin NPH Hum/Reg Insulin Hm 16 unit SQ QDBREAKFAST 12/15/23 12/15/23 [Novolin 70-30 100 Unit/ml Vial] Spironolactone [Aldactone] 12.5 mg PO DAILY 12/15/23 12/15/23 Triamcinolone 0.1% Cream [Kenalog 1 gm TOP UD PRN 12/15/23 12/15/23 0.1% Cream] - PHYSICAL EXAM AT DISCHARGE General Appearance: positive: No acute distress, Alert Eyes Bilateral: positive: No scleral icterus Neck: positive: No JVD, Trachea midline Respiratory: positive: No respiratory distress, Breath sounds nml Cardiovascular: positive: Regular rate & rhythm Abdomen: positive: Nml bowel sounds, No distention Skin: positive: No rash Extremities: positive: Nml appearance, No pedal edema - LABS Result Diagrams: 12/17/23 05:34 12/18/23 05:31 - SEPSIS Current Stage of Sepsis: Sepsis Possible source of Sepsis: Genitourinary Sepsis Criteria: Recorded Respiratory Rate greater than 20, WBC count greater than 12,000 or less than 4000 - FOLLOW UP Follow Up: Follow-up with Dr. Junior Aguirre MD. - TIME SPENT Time Spent in Discharge (Minutes): 28
[2023-12-19 13:37] VITALS: BP 119/57; O2SAT 100
[2023-12-19] MEDS: MAGNESIUM OXIDE 400 MG TABLET PO SCH (13:59)
== END 2023-12-19 15:45 | disposition home or self-care (01) | DRG 872 ==
LOC: EDUNIT# → ED 17:11 → MS2 20:53 → OBSVTOIN 12-16 12:32
PROVIDERS: ADMIT Student in an Organized Health Care Education/Training Program; ATTEND Internal Medicine
DX: A41.1 Sepsis due to other specified staphylococcus (principal); N10 Acute pyelonephritis; R42 Dizziness and giddiness; E11.42 Type 2 diabetes mellitus with diabetic polyneuropathy; I11.0 Hypertensive heart disease with heart failure; I50.9 Heart failure, unspecified; E78.00 Pure hypercholesterolemia, unspecified; Z11.52 Encounter for screening for COVID-19; I25.2 Old myocardial infarction; R74.8 Abnormal levels of other serum enzymes; Z79.4 Long term (current) use of insulin; Z79.84 Long term (current) use of oral hypoglycemic drugs; Z79.899 Other long term (current) drug therapy; Z90.49 Acquired absence of other specified parts of digestive tract; Z95.0 Presence of cardiac pacemaker
CPT/HCPCS: 36415; 71045; 80048; 80053; 81001; 83605; 83735; 84100; 85025; 85027; 87040; 87077; 87086; 87181; 87633; 93005; 96374; 97161; 97166; 97530; 99285; A9270; G0378; J1650

== ENCOUNTER 2024-03-16 15:12 | Outpatient (CLI) | payer MEDICARE | END 2024-03-16 23:59 | disposition critical access hospital (66) | LOC: EMS 15:12 | DX: S81.811A Laceration without foreign body, right lower leg, initial encounter (principal); X58.XXXA Exposure to other specified factors, initial encounter | CPT/HCPCS: A0425; A0427 ==

== ENCOUNTER 2024-03-16 15:23 | Emergency (ER) | payer MEDICARE ==
--- NOTE | 2024-03-16 15:30 | ED Physician Documentation ---
PD HPI LOWER EXT INJURY - Stated complaint Stated Complaint: RT LEG INFECTION - History obtained from History obtained from: Patient, EMS - Additional information Additional information: She developed a sore on the right leg above the ankle about 6 days ago. It hurts quite a bit. She has controlled type 2 diabetes and had a similar episode in October at which time she grew from the wound MSSA and improved on Keflex. She was admitted a couple months ago for a UTI as well. Prehospital blood pressure was on the low side, in the range of 90/60 but she says that usual for her. She denies fevers or chills. She does not recollect an injury to the leg. Of note, on the weekend she suffered a skin tear on the left forearm on the ambulance gurholden. She is up-to-date on tetanus. 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 Cardiovascular: Pacemaker, Vascular surgery HEENT: Cataracts - Present Medications Home Medications: Ambulatory Orders Medication Instructions Recorded Confirmed Carvedilol 6.25 mg PO BID 12/25/16 12/15/23 EPINEPHrine [Epipen 2-Pranay] 0.3 mg SUBQ PRN PRN 12/25/16 12/15/23 Furosemide 40 mg PO DAILY 12/25/16 12/15/23 Metformin HCl [Metformin ER 1,500 mg PO QDBREAKFAST 12/25/16 12/15/23 Osmotic] Aspirin Chewable [St Timi 81 mg PO DAILY 12/15/23 12/15/23 Aspirin] Atorvastatin [Lipitor] 40 mg PO DAILY 12/15/23 12/15/23 Clotrimazole 1% Cream [Lotrimin 1% 1 gm TOP UD PRN 12/15/23 12/15/23 Cream] Insulin NPH Hum/Reg Insulin Hm 16 unit SQ QDBREAKFAST 12/15/23 12/15/23 [Novolin 70-30 100 Unit/ml Vial] Spironolactone [Aldactone] 12.5 mg PO DAILY 12/15/23 12/15/23 Triamcinolone 0.1% Cream [Kenalog 1 gm TOP UD PRN 12/15/23 12/15/23 0.1% Cream] Mupirocin 2% Oint [Bactroban 2% 1 applic TOP BID #50 gm 03/16/24 Oint] cephALEXin [Keflex] 500 mg PO Q6H #28 cap 03/16/24 - Allergies Allergies/Adverse Reactions: Allergies Allergy/AdvReac Type Severity Reaction Status Date / Time ibuprofen Allergy Intermediate GI upset Verified 03/16/24 15:30 morphine Allergy Unknown Unknown Verified 03/16/24 15:30 shellfish Allergy Unknown Uncoded 03/16/24 15:30 - Social History Does the pt smoke?: No Smoking Status: Current every day smoker Does the pt drink ETOH?: No Does the pt have substance abuse?: No - Immunizations Immunizations are current?: Yes - POLST Patient has POLST: No PD ED PE NORMAL - Vitals Vital signs reviewed: Yes - General General: Alert and oriented X 3, No acute distress - Neck Neck: Supple, no meningeal sign, No bony TTP - Extremities Extremities: No tenderness to palpate (2 cm shallow skin tear left mid posterior forearm), Other (There is a small ulcer measuring about 2 cm in diameter to the lateral low right leg above the ankle with mild surrounding cellulitis. It was cultured on exam.) - Neuro Neuro: Alert and oriented X 3, Normal speech - Psych Psych: Normal mood, Normal affect Results - Vitals Vitals: Vital Signs - 24 hr 03/16/24 15:27 Temperature 36.6 C Heart Rate 81 Respiratory 17 Rate Blood Pressure 92/81 H O2 Saturation 99 Oxygen O2 Source Room air - Labs Labs: Microbiology 03/16/24 15:25 Wound Culture - Preliminary Leg - Right Laboratory Tests 03/16/24 03/16/24 03/16/24 15:40 15:40 15:40 WBC 6.3 RBC 3.61 L Hgb 11.3 L Hct 34.4 L MCV 95.3 MCH 31.3 H MCHC 32.8 RDW 17.8 H Plt Count 137 MPV 9.6 Neut # (Auto) 3.8 Lymph # (Auto) 1.8 [place] # (Auto) 0.5 Eos # (Auto) 0.1 Baso # (Auto) 0.0 Absolute Nucleated RBC 0.00 Nucleated RBC % 0.0 Sodium 129 L Potassium 4.3 Chloride 97 L Carbon Dioxide 26 Anion Gap 6.0 BUN 32 H Creatinine 1.2 Estimated GFR (MDRD) 44 L Glucose 146 H Lactic Acid 1.6 Calcium 8.9 Total Bilirubin 1.7 H AST 25 ALT 15 Alkaline Phosphatase 180 H Total Protein 5.8 L Albumin 3.4 Globulin 2.4 Albumin/Globulin Ratio 1.4 Procedures - Laceration (location) Left forearm Length in cm: 2 Wound type: Linear, Superficial Wound preparation: Irrigated copiously NS Skin layer closure: Dermabond PD Medical Decision Making - ED course ED course: She presents with what looks like a wound infection to the right leg. Had a similar issue a few months ago and grew out MSSA. She was administered IV Ancef here. CBC notable for mild anemia, chronic. No leukocytosis. BMP noted for chronic hyponatremia and elevation of BUN, bilirubin and alkaline phosphatase. Nothing acute. No lactic acidosis. She was administered IV fluids in addition to the Ancef and started on Keflex pending wound culture. Presume it will be MSSA as she has had in the past. No S/Sx NSTI Departure - Departure Disposition: 01 Home, Self Care Clinical Impression: Cellulitis Qualifiers: Site of cellulitis: extremity Site of cellulitis of extremity: lower extremity Laterality: right Qualified Code(s): L03.115 - Cellulitis of right lower limb Skin tear of left forearm without complication Qualifiers: Encounter type: initial encounter Qualified Code(s): S51.812A - Laceration without foreign body of left forearm, initial encounter Condition: Good Record reviewed to determine appropriate education?: Yes Instructions: Cellulitis Dc Prescriptions: Mupirocin 2% Oint [Bactroban 2% Oint] 1 applic TOP BID #50 gm cephALEXin [Keflex] 500 mg PO Q6H #28 cap Comments: You were seen today for the mild wound infection on your right ankle. Similar to a few months ago I think this will respond well to antibiotic treatment and local wound care. The current dressings you are using are actually ideal and I sent a prescription for antibiotics to [facility] in [place]. I am also prescribing some topical antibiotics that can go right on the infection as well. We are performing a wound culture, the results should be done in 48-72 hours. If antibiotic change is necessary we will call you. Return if worse in the m eantime, especially if you develop increased pain, fevers, cannot keep down the medication. Otherwise follow-up with your physician in approximately 2-3 days.
[2024-03-16 15:35] VITALS: O2SAT 99
[2024-03-16] MEDS: SODIUM CHLORIDE 0.9% 1,000 ML IV STA (15:44)
[2024-03-16] MEDS: ceFAZolin 1 GM VIAL IVP STA (15:44)
[2024-03-16] MEDS: ACETAMINOPHEN 500 MG TABLET PO STA (15:44)
[2024-03-16 15:49] LABS: BASOPHILS % (AUTO) 0.5 %; EOSINOPHILS # (AUTO) 0.1 10^3/uL (0.0-0.7); EOSINOPHILS % (AUTO) 2.1 %; HCT - HEMATOCRIT 34.4 % (37.0-47.0); HGB - HEMOGLOBIN 11.3 g/dL (12.0-16.0); LYMPHOCYTES # (AUTO) 1.8 10^3/uL (1.5-3.5); LYMPHOCYTES % (AUTO) 28.4 %; MEAN CORPUSCULAR HEMOGLOBIN 31.3 pg (27.0-31.0); MEAN CORPUSCULAR HGB CONC 32.8 g/dL (32.0-36.0); MEAN CORPUSCULAR VOLUME 95.3 fL (81.0-99.0); MEAN PLATELET VOLUME 9.6 fL (7.9-10.8); MONOCYTES # (AUTO) 0.5 10^3/uL (0.0-1.0); MONOCYTES % (AUTO) 8.5 %; NEUTROPHILS # (AUTO) 3.8 10^3/uL (1.5-6.6); NEUTROPHILS % (AUTO) 60.2 %; PLT - PLATELET COUNT 137 10^3/uL (130-450); RED BLOOD COUNT 3.61 10^6/uL (4.20-5.40); RED CELL DISTRIBUTION WIDTH 17.8 % (12.0-15.0); WHITE BLOOD COUNT 6.3 x10^3/uL (4.8-10.8)
[2024-03-16 16:13] LABS: ALBUMIN 3.4 g/dL (3.2-5.5); ALBUMIN/GLOBULIN RATIO 1.4 (1.0-2.2); BILIRUBIN,TOTAL 1.7 mg/dL (0.2-1.0); CALCIUM 8.9 mg/dL (8.5-10.3); CREATININE 1.2 mg/dL (0.6-1.3); POTASSIUM 4.3 mmol/L (3.5-4.5); TOTAL PROTEIN 5.8 g/dL (6.4-8.9)
[2024-03-16 17:06] VITALS: BP 96/60
== END 2024-03-16 16:41 | disposition home or self-care (01) ==
LOC: EDUNIT# → EDBD → ED 15:23
DX: S51.812A Laceration without foreign body of left forearm, initial encounter (principal); L03.115 Cellulitis of right lower limb; X58.XXXA Exposure to other specified factors, initial encounter; I11.0 Hypertensive heart disease with heart failure; I50.9 Heart failure, unspecified; E78.00 Pure hypercholesterolemia, unspecified; I25.2 Old myocardial infarction; E11.42 Type 2 diabetes mellitus with diabetic polyneuropathy; Z95.0 Presence of cardiac pacemaker; Z79.4 Long term (current) use of insulin; Z79.84 Long term (current) use of oral hypoglycemic drugs; Z79.899 Other long term (current) drug therapy; F17.200 Nicotine dependence, unspecified, uncomplicated
CPT/HCPCS: 12001; 36415; 80053; 83605; 85025; 87040; 87070; 87077; 87181; 87205; 96374; 99284; A9270

== ENCOUNTER 2024-04-18 14:57 | Outpatient (CLI) | payer MEDICARE | END 2024-04-18 23:59 | disposition critical access hospital (66) | LOC: EMS 14:57 | DX: R06.02 Shortness of breath (principal); R53.1 Weakness; R46.4 Slowness and poor responsiveness; R60.0 Localized edema | CPT/HCPCS: A0425; A0427 ==

== ENCOUNTER 2024-04-18 15:08 | Emergency (ER) | payer MEDICARE ==
--- NOTE | 2024-04-18 15:19 | ED Physician Documentation ---
History of Present Illness - Stated complaint Stated Complaint: WEAKNESS - History obtained from History obtained from: Patient, Family - Additonal information Additional information: Patient is 74-year-old female with past medical history of type 2 diabetes and past medical history of CHF presents to the emergency department worsening shortness of breath. Symptoms have been going on for 4 days. She reports generalized weakness and fatigue associated with her symptoms. Mild leg swelling as well. Patient brought in by EMS they did start fluids on patient she received about 200 cc before arrival as they were concerned for tachycardia. Patient denies any shortness of breath or chest pain at this time. She notes symptoms seem to only worsen when she is ambulating. She denies any fevers chills. No recent sick contacts. PD PAST MEDICAL HISTORY - Present Medications Home Medications: Ambulatory Orders Medication Instructions Recorded Confirmed Carvedilol 6.25 mg PO BID 12/25/16 12/15/23 EPINEPHrine [Epipen 2-Pranay] 0.3 mg SUBQ PRN PRN 12/25/16 12/15/23 Furosemide 40 mg PO DAILY 12/25/16 12/15/23 Metformin HCl [Metformin ER 1,500 mg PO QDBREAKFAST 12/25/16 12/15/23 Osmotic] Aspirin Chewable [St Timi 81 mg PO DAILY 12/15/23 12/15/23 Aspirin] Atorvastatin [Lipitor] 40 mg PO DAILY 12/15/23 12/15/23 Clotrimazole 1% Cream [Lotrimin 1% 1 gm TOP UD PRN 12/15/23 12/15/23 Cream] Insulin NPH Hum/Reg Insulin Hm 16 unit SQ QDBREAKFAST 12/15/23 12/15/23 [Novolin 70-30 100 Unit/ml Vial] Spironolactone [Aldactone] 12.5 mg PO DAILY 12/15/23 12/15/23 Triamcinolone 0.1% Cream [Kenalog 1 gm TOP UD PRN 12/15/23 12/15/23 0.1% Cream] Mupirocin 2% Oint [Bactroban 2% 1 applic TOP BID #50 gm 03/16/24 Oint] cephALEXin [Keflex] 500 mg PO Q6H #28 cap 03/16/24 - Allergies Allergies/Adverse Reactions: Allergies Allergy/AdvReac Type Severity Reaction Status Date / Time ibuprofen Allergy Intermediate GI upset Verified 04/18/24 15:19 morphine Allergy Unknown Unknown Verified 04/18/24 15:19 shellfish Allergy Unknown Uncoded 03/16/24 15:30 PD ED PE NORMAL - Vitals Vital signs reviewed: Yes - General General: Alert and oriented X 3, No acute distress - HEENT HEENT: Atraumatic, PERRL, EOMI - Neck Neck: Supple, no meningeal sign - Cardiac Cardiac: RRR, No gallop, No rub - Respiratory Respiratory: No respiratory distress, Clear bilaterally, Other (No rhonchi wheezes or rales appreciated.) - Abdomen Abdomen: Normal bowel sounds, Soft - Derm Derm: Normal color - Extremities Extremities: No deformity, Other (Mild bilateral pitting edema with 1+ pitting appreciated.) - Neuro Neuro: Alert and oriented X 3 Eye Opening: Spontaneous Motor: Obeys Commands Verbal: Oriented GCS Score: 15 - Psych Psych: Normal mood Results - Vitals Vitals: Vital Signs - 24 hr 04/18/24 04/18/24 15:19 17:22 Temperature 36.9 C Heart Rate 68 61 Respiratory 16 16 Rate Blood Pressure 112/64 111/58 L O2 Saturation 95 95 Oxygen O2 Source Room air - Labs Labs: Laboratory Tests 04/18/24 04/18/24 04/18/24 15:45 15:45 15:45 WBC 5.6 RBC 3.92 L Hgb 12.0 Hct 36.4 L MCV 92.9 MCH 30.6 MCHC 33.0 RDW 18.5 H Plt Count 142 MPV 9.9 Neut # (Auto) 4.0 Lymph # (Auto) 0.7 [address] # (Auto) 0.8 Eos # (Auto) 0.0 Baso # (Auto) 0.0 Absolute Nucleated RBC 0.00 Nucleated RBC % 0.0 Sodium 128 L Potassium 4.1 Chloride 86 L Carbon Dioxide 32 Anion Gap 10.0 BUN 34 H Creatinine 1.7 H Estimated GFR (MDRD) 29 L Glucose 299 H Calcium 9.0 Magnesium 1.6 L Total Bilirubin 2.8 H AST 42 ALT 18 Alkaline Phosphatase 167 H Troponin I High Sens B-Natriuretic Peptide Total Protein 6.1 L Albumin 3.5 Globulin 2.6 Albumin/Globulin Ratio 1.3 Procalcitonin Immunoas 0.37 04/18/24 04/18/24 04/18/24 15:45 15:45 18:16 WBC RBC Hgb Hct MCV MCH MCHC RDW Plt Count MPV Neut # (Auto) Lymph # (Auto) Lane # (Auto) Eos # (Auto) Baso # (Auto) Absolute Nucleated RBC Nucleated RBC % Sodium Potassium Chloride Carbon Dioxide Anion Gap BUN Creatinine Estimated GFR (MDRD) Glucose Calcium Magnesium Total Bilirubin AST ALT Alkaline Phosphatase Troponin I High Sens 167.1 H* 174.4 H* B-Natriuretic Peptide 2856 H Total Protein Albumin Globulin Albumin/Globulin Ratio Procalcitonin Immunoas PD Medical Decision Making - ED course ED course: Patient is a 74-year-old female presenting to the emergency department with past medical history of CHF, history of coronary artery disease, history of diabetes. Patient presents to the emergency department with symptoms of worsening shortness of breath and cough that has been going on for the past 4 days. Patient was brought in by EMS. They did start fluids on her as concerns for tachycardia but on arrival patient normotensive and nontachycardic. Patient afebrile on arrival. Clear breath sounds on auscultation minimal 1+ pitting edema noted to lower legs distended abdomen on examination but no palpable pitting edema appreciated. Abdomen soft without rebound or guarding. Labs obtained here in the emergency department show no significant leukocytosis. There does appear to be elevated creatinine level at 1.7 patient's baseline closer to 1.2. No significant electrolyte abnormality. EKG and troponin levels obtained here in emergency department showing elevated troponin at 167. EKG shows no signs of ST elevation it does show atrial ventricular dual placed rhythm with no signs of ST changes. BMP additionally obtained here in emergency department around 28,000. Chest x-ray here shows no signs of fluid overload. Given concerning elevated troponin levels we will plan to repeat here in the emergency department however in the meantime we will patient cardiology at available openings. Discussed case with Dr. Karlo Price at [facility] and given elevated troponin levels and history of cardiomyopathy., Echo reviewed from 2016 shows EF of 20 to 25%, patient will be transferred up to [facility] for further treatment and further imaging to be performed as no echo or stress test available here at this facility. Discussed with Dr. Price and he recommends giving aspirin but no heparin drip at this time as concerns most likely for worsening cardiomyopathy over acute NSTEMI given no chest pain and symptoms have been going on for 4 days..Discussed possible PE workup however given patient has GFR of 23 and significant DEANGELO we will hold off on this time. Patient also remains nontachycardic and no signs of hypoxia here in the emergency department. Additionally discussed with patient she initially did not want to be transferred to [facility] but after discussing with daughter and patient again she is agreeable at this time. Pending repeat troponin and EKG here in emergency department. Repeat troponin here in the emergency department increasing to 174.7. Patient continues to deny any chest pain at this time. EKG shows no acute changes. Departure - Departure Disposition: 02 Transfer Acute Care [facility]
[2024-04-18 15:50] LABS: BASOPHILS % (AUTO) 0.4 %; HCT - HEMATOCRIT 36.4 % (37.0-47.0); LYMPHOCYTES # (AUTO) 0.7 10^3/uL (1.5-3.5); LYMPHOCYTES % (AUTO) 11.7 %; MEAN CORPUSCULAR HEMOGLOBIN 30.6 pg (27.0-31.0); MEAN CORPUSCULAR VOLUME 92.9 fL (81.0-99.0); MEAN PLATELET VOLUME 9.9 fL (7.9-10.8); MONOCYTES # (AUTO) 0.8 10^3/uL (0.0-1.0); MONOCYTES % (AUTO) 15.1 %; NEUTROPHILS % (AUTO) 72.4 %; PLT - PLATELET COUNT 142 10^3/uL (130-450); RED BLOOD COUNT 3.92 10^6/uL (4.20-5.40); RED CELL DISTRIBUTION WIDTH 18.5 % (12.0-15.0); WHITE BLOOD COUNT 5.6 x10^3/uL (4.8-10.8)
--- NOTE | 2024-04-18 16:02 | XRAY Report ---
PROCEDURE: Chest 1V INDICATIONS: sob TECHNIQUE: One view of the chest was acquired. COMPARISON: 12/14/2023 FINDINGS: Surgical changes and devices: Left chest wall generator with cardiac leads. Lungs and pleura: No pleural effusions or pneumothorax. Lungs are clear. Mediastinum: Mediastinal contours appear normal. Heart size is normal. Bones and chest wall: No suspicious bony lesions. Overlying soft tissues appear unremarkable. IMPRESSION: No acute cardiopulmonary process. Reviewed by: Paulo Delarosa MD on 04/18/2024 4:01 PM PDT Approved by: Paulo Delarosa MD on 04/18/2024 4:01 PM PDT Station ID: [id number]
[2024-04-18 16:10] LABS: MAGNESIUM 1.6 mg/dL (1.7-2.3)
[2024-04-18 16:16] LABS: ALBUMIN 3.5 g/dL (3.2-5.5); ALBUMIN/GLOBULIN RATIO 1.3 (1.0-2.2); BILIRUBIN,TOTAL 2.8 mg/dL (0.2-1.0); CREATININE 1.7 mg/dL (0.6-1.3); POTASSIUM 4.1 mmol/L (3.5-4.5); TOTAL PROTEIN 6.1 g/dL (6.4-8.9)
[2024-04-18] MEDS: ASPIRIN 325 MG TABLET PO STA (18:52)
[2024-04-19] MEDS: metFORMIN 500 MG TABLET PO STA (11:43)
[2024-04-19] MEDS: SODIUM CHLORIDE 0.9% 1,000 ML IV STA (13:42)
--- NOTE | 2024-04-19 23:17 | ED Physician Documentation ---
ED Addendum - Addendum Addendum: 04/19/24 23:17 No changes during my shift. Patient signed out to the oncoming emergency department physician.
[2024-04-20 07:38] LABS: BASOPHILS % (AUTO) 0.4 %; LYMPHOCYTES # (AUTO) 1.3 10^3/uL (1.5-3.5); LYMPHOCYTES % (AUTO) 24.2 %; MEAN CORPUSCULAR HEMOGLOBIN 30.7 pg (27.0-31.0); MEAN CORPUSCULAR HGB CONC 33.3 g/dL (32.0-36.0); MEAN CORPUSCULAR VOLUME 92.1 fL (81.0-99.0); MEAN PLATELET VOLUME 10.2 fL (7.9-10.8); MONOCYTES # (AUTO) 0.8 10^3/uL (0.0-1.0); MONOCYTES % (AUTO) 15.5 %; NEUTROPHILS # (AUTO) 3.2 10^3/uL (1.5-6.6); NEUTROPHILS % (AUTO) 59.5 %; PLT - PLATELET COUNT 104 10^3/uL (130-450); RED BLOOD COUNT 3.91 10^6/uL (4.20-5.40); RED CELL DISTRIBUTION WIDTH 18.6 % (12.0-15.0); WHITE BLOOD COUNT 5.3 x10^3/uL (4.8-10.8)
[2024-04-20 07:49] LABS: ALBUMIN 2.8 g/dL (3.2-5.5); ALBUMIN/GLOBULIN RATIO 1.3 (1.0-2.2); BILIRUBIN,TOTAL 1.9 mg/dL (0.2-1.0); CALCIUM 8.1 mg/dL (8.5-10.3); CREATININE 1.4 mg/dL (0.6-1.3); POTASSIUM 3.4 mmol/L (3.5-4.5)
--- NOTE | 2024-04-20 08:19 | ED Physician Documentation ---
ED Addendum - Addendum Addendum: 04/20/24 08:18 74-year-old female with history of cardiomyopathy and congestive heart failure presents to the emergency department with chest pain and shortness of breath and is found to have rising troponin and BNP elevated at 2800. The patient has grade 4 diastolic dysfunction and an ejection fraction of 25% on her echocardiogram from 2017. Today she has no swelling in her extremities she has clear lungs and a chest x-ray done 2 days appears dry. In addition on her laboratory studies she has evidence of acute kidney injury and my suspicion is the patient that may actually be dry and require some fluid for symptom control. I interrogated the inferior vena cava with POCUS and found a 1.7 cm vessel that was plethoric. This vessel although plethoric is not excessive in size. She has been given 1 liter of saline yesterday and today her BUN and creatinine are improved. I have ordered the patient to have magnesium IV as well as additional 250ml of saline. An echo is pending today and a bed in [place] is expected today. Echocardiogram today shows normal left ventricular size with severely reduced systolic function with a ejection fraction of 15 to 20% there is a dilated right ventricle with reduced systolic function. Severe tricuspid cuspid regurgitation and mild mitral regurgitation. At shift change at bed he is still not available and her care is turned over to the oncoming emergency department physician. 04/20/24 08:22 04/20/24 08:31 04/20/24 08:32 04/20/24 21:54
[2024-04-20] MEDS: SODIUM CHLORIDE 0.9% 500 ML IV STA (08:56)
[2024-04-20] MEDS: MAGNESIUM SULFATE 2 GRAM 2 GM/50 ML BAG IV ONE (09:04)
[2024-04-20] MEDS: SODIUM CHLORIDE 0.9% 250 ML IV STA (09:05)
[2024-04-20] MEDS: ZINC OXIDE 20% OINT 30 GM TUBE TOP STA (20:44)
[2024-04-21] MEDS: ATORVASTATIN 40 MG TABLET PO STA (12:45)
[2024-04-21] MEDS: ASPIRIN EC 81 MG TABLET PO STA (12:45)
[2024-04-21] MEDS: POTASSIUM CHLORIDE 20 MEQ TABLET PO STA (12:45)
[2024-04-21] MEDS: FUROSEMIDE 40 MG/4 ML VIAL IVP STA (13:01)
--- NOTE | 2024-04-21 14:27 | ED Physician Documentation ---
History of Present Illness - Stated complaint Stated Complaint: WEAKNESS - Chief complaint Chief Complaint: General - Additonal information Additional information: Patient here in the AM after still unable to be transferred to [facility]. Patient continues to have weakness and Shortness of breath. Patient was started on 1 L nasal cannula oxygen here in the emergency department overnight but now has been saturating at 100% RA. Patient continues to deny any chest pain this morning. Labs reviewed do show uptrending troponin and uptrending BNP. BNP in the 3000's this morning and troponin at 217. Discussed case with core dipper at [facility] as no beds have been open at [facility] and patient keeps being moved back on waiting list. Discussed with Dr. Morin at [facility] core dipper. Patient's core dipper is at [facility] and she recommends giving Lasix 4020 of potassium this morning and aspirin 81 mg. Patient also given home dose of Lipitor 40 mg today. She recommends holding her metoprolol and spironolactone dosing.Additionally she is agreeable patient should be sent to [facility] as patient's most recent records are available there. 1445:I was able to discuss with Dr. Penny emergency room physician who is agreeable to accept patient after checking with his help supervisor enrobing and they will accept patient ER to ER transfer. He is updated on patient's condition and vital signs. Patient and her family members updated they are agreeable with transfer. Patient will be sent via ALS as she occasionally becomes hypoxic and requires cardiac monitoring from our perspective. 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 Cardiovascular: Pacemaker, Vascular surgery HEENT: Cataracts - Present Medications Home Medications: Ambulatory Orders Medication Instructions Recorded Confirmed EPINEPHrine [Epipen 2-Pranay] 0.3 mg SUBQ PRN PRN 12/25/16 04/19/24 Furosemide 40 mg PO BID 12/25/16 04/19/24 Metformin HCl [Metformin ER 500 mg PO TID 12/25/16 04/19/24 Osmotic] Aspirin Chewable [St Timi 81 mg PO DAILY 12/15/23 04/19/24 Aspirin] Atorvastatin [Lipitor] 40 mg PO DAILY 12/15/23 04/19/24 Insulin NPH Hum/Reg Insulin Hm 13 unit SQ QDBREAKFAST 12/15/23 04/19/24 [Novolin 70-30 100 Unit/ml Vial] Spironolactone [Aldactone] 25 mg PO DAILY 12/15/23 04/19/24 Magnesium 250 mg PO DAILY 04/19/24 04/19/24 Metoprolol Succinate [Toprol Xl] 50 mg PO HS 04/19/24 04/19/24 - Allergies Allergies/Adverse Reactions: Allergies Allergy/AdvReac Type Severity Reaction Status Date / Time ibuprofen Allergy Intermediate GI upset Verified 04/18/24 15:19 morphine Allergy Unknown Unknown Verified 04/18/24 15:19 shellfish Allergy Unknown Uncoded 03/16/24 15:30 - Social History Does the pt smoke?: Yes Smoking Status: Current some day smoker Does the pt drink ETOH?: No Does the pt have substance abuse?: No - Immunizations Immunizations are current?: Yes - POLST Patient has POLST: No Results - Vitals Vitals: Vital Signs - 24 hr 04/20/24 04/20/24 04/20/24 15:00 17:00 19:00 Temperature 36.9 C Heart Rate 60 64 62 Respiratory 21 20 20 Rate Blood Pressure 113/55 L 103/54 L 106/53 L O2 Saturation 99 94 100 If not protocol 2 2 : Oxygen Flow, liters/minute 04/20/24 04/20/24 04/21/24 21:00 23:00 01:00 Temperature Heart Rate 66 62 66 Respiratory 24 23 20 Rate Blood Pressure 104/87 H 110/68 115/72 O2 Saturation 98 97 96 If not protocol 2 : Oxygen Flow, liters/minute 04/21/24 04/21/24 04/21/24 02:59 05:00 07:27 Temperature Heart Rate 72 60 61 Respiratory 20 18 20 Rate Blood Pressure 106/73 108/59 L 113/57 L O2 Saturation 97 99 98 If not protocol : Oxygen Flow, liters/minute 04/21/24 04/21/24 04/21/24 10:42 11:30 13:00 Temperature Heart Rate 62 67 64 Respiratory 24 24 24 Rate Blood Pressure 107/61 112/64 117/66 O2 Saturation 97 97 98 If not protocol 2 : Oxygen Flow, liters/minute Oxygen O2 Source Room air - Labs Labs: Laboratory Tests 04/18/24 04/18/24 04/18/24 15:45 15:45 15:45 WBC 5.6 RBC 3.92 L Hgb 12.0 Hct 36.4 L MCV 92.9 MCH 30.6 MCHC 33.0 RDW 18.5 H Plt Count 142 MPV 9.9 Neut # (Auto) 4.0 Lymph # (Auto) 0.7 L [place] # (Auto) 0.8 Eos # (Auto) 0.0 Baso # (Auto) 0.0 Absolute Nucleated RBC 0.00 Nucleated RBC % 0.0 Sodium 128 L Potassium 4.1 Chloride 86 L Carbon Dioxide 32 Anion Gap 10.0 BUN 34 H Creatinine 1.7 H Estimated GFR (MDRD) 29 L Glucose 299 H Calcium 9.0 Magnesium 1.6 L Total Bilirubin 2.8 H AST 42 ALT 18 Alkaline Phosphatase 167 H Troponin I High Sens B-Natriuretic Peptide Total Protein 6.1 L Albumin 3.5 Globulin 2.6 Albumin/Globulin Ratio 1.3 Lipase Procalcitonin Immunoas 0.37 04/18/24 04/18/24 04/18/24 15:45 15:45 18:16 WBC RBC Hgb Hct MCV MCH MCHC RDW Plt Count MPV Neut # (Auto) Lymph # (Auto) [place] # (Auto) Eos # (Auto) Baso # (Auto) Absolute Nucleated RBC Nucleated RBC % Sodium Potassium Chloride Carbon Dioxide Anion Gap BUN Creatinine Estimated GFR (MDRD) Glucose Calcium Magnesium Total Bilirubin AST ALT Alkaline Phosphatase Troponin I High Sens 167.1 H* 174.4 H* B-Natriuretic Peptide 2856 H Total Protein Albumin Globulin Albumin/Globulin Ratio Lipase Procalcitonin Immunoas 04/18/24 04/20/24 04/20/24 22:57 07:30 07:30 WBC 5.3 RBC 3.91 L Hgb 12.0 Hct 36.0 L MCV 92.1 MCH 30.7 MCHC 33.3 RDW 18.6 H Plt Count 104 L MPV 10.2 Neut # (Auto) 3.2 Lymph # (Auto) 1.3 L [place] # (Auto) 0.8 Eos # (Auto) 0.0 Baso # (Auto) 0.0 Absolute Nucleated RBC 0.00 Nucleated RBC % 0.0 Sodium 133 L Potassium 3.4 L Chloride 93 L Carbon Dioxide 32 Anion Gap 8.0 BUN 36 H Creatinine 1.4 H Estimated GFR (MDRD) 37 L Glucose 216 H Calcium 8.1 L Magnesium Total Bilirubin 1.9 H AST 42 ALT 15 Alkaline Phosphatase 149 H Troponin I High Sens 210.1 H* B-Natriuretic Peptide Total Protein 5.0 L Albumin 2.8 L Globulin 2.2 Albumin/Globulin Ratio 1.3 Lipase 21 Procalcitonin Immunoas 04/20/24 04/20/24 07:30 07:30 WBC RBC Hgb Hct MCV MCH MCHC RDW Plt Count MPV Neut # (Auto) Lymph # (Auto) [place] # (Auto) Eos # (Auto) Baso # (Auto) Absolute Nucleated RBC Nucleated RBC % Sodium Potassium Chloride Carbon Dioxide Anion Gap BUN Creatinine Estimated GFR (MDRD) Glucose Calcium Magnesium Total Bilirubin AST ALT Alkaline Phosphatase Troponin I High Sens 237.4 H* B-Natriuretic Peptide 3057 H Total Protein Albumin Globulin Albumin/Globulin Ratio Lipase Procalcitonin Immunoas Departure - Departure Disposition: 02 Transfer Acute Care Hosp Clinical Impression: Acute CHF (congestive heart failure), Shortness of breath Condition: Poor Forms: PCP List
[2024-04-21 16:12] VITALS: BP 106/59; O2SAT 95
== END 2024-04-21 18:40 | disposition short-term general hospital (02) ==
LOC: EDUNIT# → EDBD → ED 15:08
DX: I11.0 Hypertensive heart disease with heart failure (principal); I50.9 Heart failure, unspecified; I36.1 Nonrheumatic tricuspid (valve) insufficiency; E78.00 Pure hypercholesterolemia, unspecified; I25.2 Old myocardial infarction; E11.42 Type 2 diabetes mellitus with diabetic polyneuropathy; Z79.82 Long term (current) use of aspirin; Z79.84 Long term (current) use of oral hypoglycemic drugs; Z79.4 Long term (current) use of insulin; Z79.899 Other long term (current) drug therapy; Z95.0 Presence of cardiac pacemaker; F17.200 Nicotine dependence, unspecified, uncomplicated
CPT/HCPCS: 36415; 71045; 80053; 83690; 83735; 83880; 84145; 84484; 85025; 93005; 93307; 96361; 96365; 96375; 99285; A9270; 85610

== ENCOUNTER 2024-06-22 15:21 | Inpatient (IN) ==
--- NOTE | 2024-06-22 15:20 | ED Physician Documentation ---
History of Present Illness Stated complaint Stated Complaint: L ANKLE WOUND Chief complaint Chief Complaint: General Treatment prior to arrival Treatment prior to arrival: 74yo F w/h/o CHF, PVD, claudication, PUD, HTN, pacemaker, DM, pancreatitis, impetigo presents with altered mental status. History clarified from triage. Patient presents actually because she has been confused in the last day, without focal numbness or weakness, vomiting, clear pain, shortness of breath, clear trauma. However, foul smelling urine was recently noted at home per report. She has wounds to her bilateral lower feet, with prior wound from left lower extremity gradually healing, and a blister to her right dorsal foot that is nontender. Blood sugar in 200s with EMS. Additional history unclear at this time. Patient confused and cannot state why she is here. She lives with daughter at home. Per chart review, she was transferred in early April with CHF. She was also seen here on 06/07 with 4cm bulla to medial lower leg with redness. Mupirocin ointment and 1 week doxycycline were prescribed. Review of Systems ROS: patient altered and cannot provide further information beyond above Meds/Allgy Home Medications Ambulatory Orders Medication Instructions Recorded Confirmed epinephrine 0.3 mg/0.3 mL 0.3 mg subcut PRN PRN Anaphylaxis 12/25/16 04/19/24 injection, auto-injector (EpiPen 2-Pranay) furosemide 40 mg tablet 40 mg PO BID 12/25/16 04/19/24 metformin 500 mg tablet,extended 500 mg PO TID 12/25/16 04/19/24 release 24hr (osmotic) aspirin 81 mg chewable tablet 81 mg PO DAILY 12/15/23 04/19/24 atorvastatin 40 mg tablet 40 mg PO DAILY 12/15/23 04/19/24 insulin human U-100 NPH-regulr 13 unit SQ QDBREAKFAST 12/15/23 04/19/24 70-30 mix 100 unit/mL subcutaneous susp (Novolin 70/30 U-100 Insulin) spironolactone 25 mg tablet 25 mg PO DAILY 12/15/23 04/19/24 (Aldactone) magnesium 250 mg tablet 250 mg PO DAILY 04/19/24 04/19/24 metoprolol succinate 50 mg 50 mg PO HS 04/19/24 04/19/24 tablet,extended release 24 hr doxycycline hyclate 100 mg capsule 100 mg PO BID #14 caps 06/07/24 mupirocin 2 % topical ointment 1 applic topical TID #22 grams 06/07/24 ([facility]) Allergies Allergies Allergy/AdvReac Type Severity Reaction Status Date / Time ibuprofen Allergy Intermediate GI upset Verified 06/07/24 15:05 morphine Allergy Unknown Unknown Verified 06/07/24 15:05 oxycodone AdvReac Mild Hallucinati Verified 06/22/24 15:40 ons shellfish Allergy Unknown Uncoded 06/07/24 15:05 [facility] Medical History Medical History (Updated 06/15/24 @ 00:00 by ) Hx of myocardial infarction Social History Social History (Updated 06/07/24 @ 15:13 by Jaskaran Castellanos RN) Smoking Status: Current some day smoker Number of Years Smoked: 45 How many cigarettes a day do you smoke? (20 cigarettes=1 Pk): 3 Do you vape?: No Patient requests smoking cessation consult: No Initiate information on smoking cessation: No Living arrangement: At home Relationship: Level: Independent Home Mobility Equipment: Walker Do you feel safe in your home environment?: Yes Suffered physical, verbal, emotional, or financial abuse?: No History of Abuse: No ETOH Use: None Substance Use: denies use Exam Exam Const: no acute distress, non toxic appearing; calm and cooperative though confused and frail appearing Eyes: PERRLA, EOMI ENT: mucous membranes moist Neck: supple, non-tender Resp: no respiratory distress, clear to auscultation bilaterally Card: regular rate and rhythm, no murmurs Abd: non tender diffusely, no rigidity or rebound or guarding Back: no T or L spine tenderness, no CVA tenderness bilaterally Extrem: no deformities, superficial wounds to LLE and blister to dorsal distal R foot without tenderness, crepitus, pain out of proportion; 1+ distal pulses BLE Neuro: ANOx2/4, 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, intact sensation and strength all extremities, normal coordination, no clonus, no lateralizing signs, no aphasia, no neglect; cognition altered as above Skin: no rash, warm and dry Results Vitals Vitals: Vital Signs - 24 hr 06/22/24 15:31 06/22/24 17:39 Temperature 36.2 C L 36.3 C L Temperature Source Temporal Artery Scan Oral Pulse Rate 83 62 Respiratory Rate 18 20 Blood Pressure 120/72 108/65 O2 Saturation 98 98 O2 Source Room air Room air Pain Intensity 5 Oxygen O2 Source Room air Labs Labs: Laboratory Tests 06/22/24 06/22/24 06/22/24 15:50 16:01 17:10 WBC 6.1 RBC 4.03 L Hgb 12.1 Hct 37.3 MCV 92.6 MCH 30.0 MCHC 32.4 RDW 18.4 H Plt Count 97 L MPV 10.2 Neut # (Auto) 4.7 Lymph # (Auto) 0.9 L [place] # (Auto) 0.5 Eos # (Auto) 0.0 Baso # (Auto) 0.0 Absolute Nucleated RBC 0.00 Nucleated RBC % 0.0 Sodium 127 L Potassium 4.1 Chloride 83 L Carbon Dioxide 37 H Anion Gap 7.0 BUN 58 H Creatinine 1.4 H Estimated GFR (MDRD) 37 L Glucose 325 H Calcium 9.6 Total Bilirubin 3.0 H AST 32 ALT 15 Alkaline Phosphatase 223 H Troponin I High Sens 95.4 H* Total Protein 6.4 Albumin 3.5 Globulin 2.9 Albumin/Globulin Ratio 1.2 Urine Color YELLOW Urine Clarity HAZY Urine pH 7.0 Ur Specific [place] 1.020 Urine Protein 100 H Urine Glucose (UA) NEGATIVE Urine Ketones NEGATIVE Urine Occult Blood LARGE H Urine Nitrite NEGATIVE Urine Bilirubin NEGATIVE Urine Urobilinogen 1 (NORMAL) Ur Leukocyte Esterase SMALL H Urine RBC 11-25 H Urine WBC >25 H Urine WBC Clumps PRESENT Ur Epithelial Cells FEW Renal Tubular Ur Squamous Epith Cells FEW Squamous Urine Bacteria Many H Urine Culture Comments INDICATED Nasal Influenza B PCR NOT DETECTED Nasal Influenza A PCR NOT DETECTED Nasal RSV (PCR) NOT DETECTED Nasal SARS-CoV-2 (PCR) NOT DETECTED Salicylates < 1.5 Ethyl Alcohol < 10.0 06/22/24 17:44 WBC RBC Hgb Hct MCV MCH MCHC RDW Plt Count MPV Neut # (Auto) Lymph # (Auto) [place] # (Auto) Eos # (Auto) Baso # (Auto) Absolute Nucleated RBC Nucleated RBC % Sodium Potassium Chloride Carbon Dioxide Anion Gap BUN Creatinine Estimated GFR (MDRD) Glucose Calcium Total Bilirubin AST ALT Alkaline Phosphatase Troponin I High Sens 96.5 H* Total Protein Albumin Globulin Albumin/Globulin Ratio Urine Color Urine Clarity Urine pH Ur Specific [place] Urine Protein Urine Glucose (UA) Urine Ketones Urine Occult Blood Urine Nitrite Urine Bilirubin Urine Urobilinogen Ur Leukocyte Esterase Urine RBC Urine WBC Urine WBC Clumps Ur Epithelial Cells Ur Squamous Epith Cells Urine Bacteria Urine Culture Comments Nasal Influenza B PCR Nasal Influenza A PCR Nasal RSV (PCR) Nasal SARS-CoV-2 (PCR) Salicylates Ethyl Alcohol PD Medical Decision Making ED course ED course: This patient presents with generalized altered mental status without focal neurologic deficit, with wounds to bilateral lower extremities that do not appear acutely tender or acutely infected. I have considered a broad differential including but not limited to UTI, pneumonia, intravascular volume depletion, electrolyte derangements, renal failure, uremia, among others. Note no focal or lateralizing deficits as above argues against acute ischemic stroke, and patient arrives with AMS for well over 4.5hrs. I am obtaining broad work up with EKG, CBC, CMP, troponin, chest x-ray, head CT, urinalysis, viral swab, etha nol and salicylate levels and will closely reassess. EKG shows paced rhythm with rate within normal limits, no clear acute ischemia, QRS and QTc prolongation in the setting of paced rhythm. Note morphology similar to April 18, 2024 EKG. Labs: CBC with no leukocytosis, anemia, thrombocytopenia. Chemistry shows hyponatremia to 127, which could be contributory but is similar to values in March and April, creatinine similar to prior at 1.4, BUN however elevated at 58 which could also be contributory, with fluids ordered; hyperglycemia present to 325, with no anion gap elevation; alk phos elevated worse than prior; no AST, ALT elevation, though bilirubin elevated, also in similar range to some prior values. EtOH negative. ASA negative. Note troponin elevated to 90s, however note this is actually lower than it has been since early April. No clear CP or EKG changes. We will trend. Imaging: I agree with radiology reads of imaging on my independent review of imaging. CXR: "FINDINGS: Surgical changes and devices: Left chest wall generator with cardiac leads. Lungs and pleura: Hazy left basilar opacity. Mediastinum: Mediastinal contours appear normal. Heart size is normal. Bones and chest wall: No suspicious bony lesions. Overlying soft tissues appear unremarkable. IMPRESSION: Hazy left basilar opacity, could represent infection or atelectasis. Reviewed by: Paulo Delarosa MD on 06/22/2024 3:54 PM PST" I am adding bcx x2 and starting ceftriaxone, doxycycline given potential for PNA. Head CT: "FINDINGS: Image quality: Excellent. CSF spaces: Basal cisterns are patent. Mild chronic bilateral anterior cystic hygromas versus findings simply secondary to volume loss. Findings are stable. Ventricles are normal in size and shape. Brain: No midline shift. No intracranial masses or hemorrhage. Bennett-white matter interface is normal. Intracranial carotid calcifications. Age-related volume loss and small vessel ischemic change. 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 Old focal small posterior right frontal subcortical infarct. Skull and face: Calvarium and visualized facial bones are intact, without suspicious lesions. Sinuses: Visualized sinuses and mastoids are clear. IMPRESSION: No acute intracranial pathology. Reviewed by: Kaushik Capellan MD on 06/22/2024 4:27 PM PST" Viral swab negative. Urine with protein, blood, leukocyte esterase, white blood cells, and bacteria, with urine culture being sent and ceftriaxone being given as previously planned for potential pneumonia as well. Both pneumonia and UTI could be contributory to AMS. Repeat EKG: Paced rhythm with rate within normal limits, no acute ischemia, no significant morphological changes from prior EKG today, QTc and QRS prolongation in the setting of paced rhythm. Repeat troponin: grossly stable. This is not consistent with ACS driving presentation. PNA or UTI causing AMS is far more likely at this time. We are awaiting hospitalist night consult starting 7pm. Hospitalist paged. Signing out in stable condition to Dr. Hdez at 1925 with plan to complete admission. Discharge Plan Discharge Prescriptions: No Action epinephrine [EpiPen 2-Pranay] 0.3 MG/0.3 ML auto-injector 0.3 mg subcut PRN PRN (Reason: Anaphylaxis) furosemide 40 MG tablet 40 mg PO BID metformin 500 MG tablet extended release 24hr 500 mg PO TID atorvastatin 40 MG tablet 40 mg PO DAILY Patient Comments: TAKE 1 TABLET BY MOUTH ONCE DAILY insulin NPH and regular human [Novolin 70/30 U-100 Insulin] 100 UNIT/ML suspension 13 unit SQ QDBREAKFAST spironolactone [Aldactone] 25 MG tablet 25 mg PO DAILY Patient Comments: TAKE 1/2 (ONE-HALF) TABLET BY MOUTH ONCE DAILY aspirin 81 MG tablet,chewable 81 mg PO DAILY metoprolol succinate 50 MG tablet extended release 24 hr 50 mg PO HS magnesium 250 MG tablet 250 mg PO DAILY mupirocin [Centany] 2 % ointment 1 applic topical TID Qty: 22 0RF doxycycline hyclate 100 mg capsule 100 mg PO BID Qty: 14 0RF Print Language: Belizean Stand Alone Forms: PCP List
--- NOTE | 2024-06-22 15:56 | XRAY Report ---
PROCEDURE: XR Chest 1V INDICATIONS: AMS TECHNIQUE: One view of the chest was acquired. COMPARISON: 04/18/2024 FINDINGS: Surgical changes and devices: Left chest wall generator with cardiac leads. Lungs and pleura: Hazy left basilar opacity. Mediastinum: Mediastinal contours appear normal. Heart size is normal. Bones and chest wall: No suspicious bony lesions. Overlying soft tissues appear unremarkable. IMPRESSION: Hazy left basilar opacity, could represent infection or atelectasis. Reviewed by: Paulo Delarosa MD on 06/22/2024 3:54 PM PST Approved by: Paulo Delarosa MD on 06/22/2024 3:54 PM PST Station ID: [id number]
[2024-06-22 16:09] LABS: BASOPHILS % (AUTO) 0.2 %; EOSINOPHILS % (AUTO) 0.3 %; HCT - HEMATOCRIT 37.3 % (37.0-47.0); HGB - HEMOGLOBIN 12.1 g/dL (12.0-16.0); LYMPHOCYTES # (AUTO) 0.9 10^3/uL (1.5-3.5); LYMPHOCYTES % (AUTO) 14.4 %; MEAN CORPUSCULAR HGB CONC 32.4 g/dL (32.0-36.0); MEAN CORPUSCULAR VOLUME 92.6 fL (81.0-99.0); MEAN PLATELET VOLUME 10.2 fL (7.9-10.8); MONOCYTES # (AUTO) 0.5 10^3/uL (0.0-1.0); NEUTROPHILS # (AUTO) 4.7 10^3/uL (1.5-6.6); NEUTROPHILS % (AUTO) 76.8 %; PLT - PLATELET COUNT 97 10^3/uL (130-450); RED BLOOD COUNT 4.03 10^6/uL (4.20-5.40); RED CELL DISTRIBUTION WIDTH 18.4 % (12.0-15.0); WHITE BLOOD COUNT 6.1 x10^3/uL (4.8-10.8)
[2024-06-22] MEDS: SODIUM CHLORIDE 0.9% 500 ML IV STA (16:21)
[2024-06-22 16:26] LABS: ALBUMIN 3.5 g/dL (3.2-5.5); ALBUMIN/GLOBULIN RATIO 1.2 (1.0-2.2); ALKALINE PHOSPHATASE 223 IU/L (42-121); ALT ALANINE AMINOTRANSFERASE 15 IU/L (10-60); AST ASPARTATE AMINOTRANSFERASE 32 IU/L (10-42); BUN - BLOOD UREA NITROGEN 58 mg/dL (6-20); CALCIUM 9.6 mg/dL (8.5-10.3); CARBON DIOXIDE - CO2 37 mmol/L (21-32); CHLORIDE 83 mmol/L (101-111); CREATININE 1.4 mg/dL (0.6-1.3); ETOH - ETHANOL < 10.0 mg/dL; GFR - MDRD 37 (>89); GLUCOSE 325 mg/dL (74-104); POTASSIUM 4.1 mmol/L (3.5-4.5); SODIUM 127 mmol/L (135-145); TOTAL PROTEIN 6.4 g/dL (6.4-8.9)
--- NOTE | 2024-06-22 16:28 | CT Report ---
PROCEDURE: CT Head WO INDICATIONS: AMS TECHNIQUE: Noncontrast 4.5 mm thick angled axial sections acquired from the foramen magnum to the vertex. For r adiation dose reduction, the following was used: automated exposure control, adjustment of mA and/or kV according to patient size. COMPARISON: 09/09/2017. FINDINGS: Image quality: Excellent. CSF spaces: Basal cisterns are patent. Mild chronic bilateral anterior cystic hygromas versus findin gs simply secondary to volume loss. Findings are stable. Ventricles are normal in size and shape. Brain: No midline shift. No intracranial masses or hemorrhage. Bennett-white matter interface is norm al. Intracranial carotid calcifications. Age-related volume loss and small vessel ischemic change. O ld bilateral occipital subcortical infarct. Old focal small posterior right frontal subcortical infar ct. Skull and face: Calvarium and visualized facial bones are intact, without suspicious lesions. Sinuses: Visualized sinuses and mastoids are clear. IMPRESSION: No acute intracranial pathology. Reviewed by: Kaushik Capellan MD on 06/22/2024 4:27 PM PST Approved by: Kaushik Capellan MD on 06/22/2024 4:27 PM PST Station ID: [id number]
[2024-06-22 16:43] LABS: SALICYLATE < 1.5 mg/dL; TROPONIN I HIGH SENSITIVITY 95.4 ng/L (2.3-14.8)
[2024-06-22 16:56] LABS: INFLUENZA A- RESP PCR PANEL NOT DETECTED; INFLUENZA B - RESP PCR PANEL NOT DETECTED; RSV- RESP PCR PANEL NOT DETECTED; SARS-CoV-2 -RESP PCR PANEL NOT DETECTED
[2024-06-22] MEDS: cefTRIAXone 1 GM in SODIUM CHLORIDE 0.9% MINIBAG 100 ML IV STA (17:17)
[2024-06-22] MEDS: DOXYCYCLINE 100 MG TABLET PO STA (17:19)
[2024-06-22] MEDS: cefTRIAXone 1 GM VIAL IVP STA (17:19)
[2024-06-22 17:20] LABS: BILIRUBIN,URINE NEGATIVE (NEGATIVE); GLUCOSE, URINE (UA) NEGATIVE (NEGATIVE); KETONES,URINE (UA) NEGATIVE (NEGATIVE); LEUKOCYTE ESTERASE, URINE SMALL (NEGATIVE); NITRITE,URINE NEGATIVE (NEGATIVE); OCCULT BLOOD,URINE LARGE (NEGATIVE); PROTEIN,URINE 100 mg/dL (NEGATIVE); UROBILINOGEN,URINE 1 (NORMAL) E.U./dL (NORMAL)
[2024-06-22] MEDS: WATER FOR INJECTION,STERILE 10 ML MC ONE (17:20)
[2024-06-22 17:36] LABS: BACTERIA,URINE Many /HPF (None Seen); CLARITY,URINE HAZY (CLEAR); EPITHELIAL CELLS,UR FEW Renal Tubular /HPF (<= Few); SQUAMOUS EPITHELIAL CELL,UR FEW Squamous (<= Few); WBC CLUMPS,URINE PRESENT; WBC,URINE >25 /HPF (0-5)
--- NOTE | 2024-06-22 19:48 | ED Physician Documentation ---
ED Addendum Addendum Addendum: Case presented to Dr. Navarro, [facility] hospitalist at this time. I was not otherwise involved with the patient as Dr. Estrada had just signed out to me. Discharge Plan Discharge Patient Disposition: [facility] DC/Xfer Condition: Serious Clinical Impression: Encephalopathy acute UTI (urinary tract infection) Qualifiers: Urinary tract infection type: acute pyelonephritis Qualified Code(s): N10 - Acute pyelonephritis Prescriptions: No Action epinephrine [EpiPen 2-Pranay] 0.3 MG/0.3 ML auto-injector 0.3 mg subcut PRN PRN (Reason: Anaphylaxis) furosemide 40 MG tablet 40 mg PO BID metformin 500 MG tablet extended release 24hr 500 mg PO TID atorvastatin 40 MG tablet 40 mg PO DAILY Patient Comments: TAKE 1 TABLET BY MOUTH ONCE DAILY insulin NPH and regular human [Novolin 70/30 U-100 Insulin] 100 UNIT/ML suspension 13 unit SQ QDBREAKFAST spironolactone [Aldactone] 25 MG tablet 25 mg PO DAILY Patient Comments: TAKE 1/2 (ONE-HALF) TABLET BY MOUTH ONCE DAILY aspirin 81 MG tablet,chewable 81 mg PO DAILY metoprolol succinate 50 MG tablet extended release 24 hr 50 mg PO HS magnesium 250 MG tablet 250 mg PO DAILY mupirocin [Centany] 2 % ointment 1 applic topical TID Qty: 22 0RF doxycycline hyclate 100 mg capsule 100 mg PO BID Qty: 14 0RF Print Language: Guyanese Stand Alone Forms: PCP List
--- NOTE | 2024-06-22 20:24 | HISTORY & PHYSICAL EXAMINATION ---
Chief Complaint Chief Complaint Chief Complaint: confusion History of Present Illness Admitted From Admitted From:: home History Obtained From Records Reviewed: yes History obtained from: patient, her daughter Willa, ER provider Exam Limitations: telemedicine History of Present Illness HPI Comment/Other: Ms Burnett is a 74 yo F with history of CHF, pacemaker in situ, PVD, HTN, peptic ulcer disease, DM II. Presents to ER with compaints of confusion x 1 day. Patient reports she has been feeling "out of it", tired, generalized weakness. Reports good appetite, denies cp, sob, palpitations, abd pain, n/v, dysuria/hematuria, flank pain. She has a cough, difficult to expectorate sputum. Denies fevers or chills. Her daughter had cold-like symptoms a few days ago, no fevers. She has bilateral lower extremity wounds, blister on R foot, she has been on doxycycline x 2 weeks, last dose was yesterday. She has not noticed much change or improvement in the wounds. At time of my evaluation patient is ble to tell me that she is at [facility], month June and year 2023, and her full name. She still feels "off" but can't really say why. Review of Systems Constitutional Reports: Fatigue and Weakness (generalized ); Denies: Fever, Chills, Night sweats, Changes in appetite or eating habits or Poor appetite Cardiovascular Denies: chest pain, palpitations or shortness of breath with exertion Respiratory Reports: Cough and Chest congestion (difficult to expectorate sputum ); Denies: Shortness of breath, Sputum production, Wheezing or SOB at rest Gastrointestinal Denies: Abdominal pain, Abdominal distention, Nausea, Vomiting, Poor appetite, Diarrhea or Constipation Genitourinary Denies: Painful urination, Urinary frequency or Urinary urgency Musculoskeletal Reports: Back pain and Muscle aches Integumentary/Breast Reports: Redness (bilateral LE from prior (completed 2 week course of doxy yesterday) ); Denies: Rash or Itching Neurological Reports: General weakness; Denies: Focal weakness Endocrine Reports: Fatigue Allergic/Immunologic Denies: Wheezing [facility] Medical History Medical History (Updated 06/22/24 @ 19:48 by Williams Hdez MD) Hx of myocardial infarction Social History Social History (Updated 06/07/24 @ 15:13 by Jaskaran Castellanos RN) Smoking Status: Current some day smoker Number of Years Smoked: 45 How many cigarettes a day do you smoke? (20 cigarettes=1 Pk): 3 Do you vape?: No Patient requests smoking cessation consult: No Initiate information on smoking cessation: No Living arrangement: At home Relationship: Level: Independent Home Mobility Equipment: Walker Do you feel safe in your home environment?: Yes Suffered physical, verbal, emotional, or financial abuse?: No History of Abuse: No ETOH Use: None Substance Use: denies use POLST Patient has POLST: No Meds/Allgy Home Medications Ambulatory Orders Medication Instructions Recorded Confirmed epinephrine 0.3 mg/0.3 mL 0.3 mg subcut PRN PRN Anaphylaxis 12/25/16 04/19/24 injection, auto-injector (EpiPen 2-Pranay) furosemide 40 mg tablet 40 mg PO BID 12/25/16 04/19/24 metformin 500 mg tablet,extended 500 mg PO TID 12/25/16 04/19/24 release 24hr (osmotic) aspirin 81 mg chewable tablet 81 mg PO DAILY 12/15/23 04/19/24 atorvastatin 40 mg tablet 40 mg PO DAILY 12/15/23 04/19/24 insulin human U-100 NPH-regulr 13 unit SQ QDBREAKFAST 12/15/23 04/19/24 70-30 mix 100 unit/mL subcutaneous susp (Novolin 70/30 U-100 Insulin) spironolactone 25 mg tablet 25 mg PO DAILY 12/15/23 04/19/24 (Aldactone) magnesium 250 mg tablet 250 mg PO DAILY 04/19/24 04/19/24 metoprolol succinate 50 mg 50 mg PO HS 04/19/24 04/19/24 tablet,extended release 24 hr doxycycline hyclate 100 mg capsule 100 mg PO BID #14 caps 06/07/24 mupirocin 2 % topical ointment 1 applic topical TID #22 grams 06/07/24 (Centany) Allergies Allergies Allergy/AdvReac Type Severity Reaction Status Date / Time ibuprofen Allergy Intermediate GI upset Verified 06/07/24 15:05 morphine Allergy Unknown Unknown Verified 06/07/24 15:05 oxycodone AdvReac Mild Hallucinati Verified 06/22/24 15:40 ons shellfish Allergy Unknown Uncoded 06/07/24 15:05 Exam Constitutional normal general appearance and no apparent distress HENMT normocephalic and head/scalp atraumatic Chest inspection of chest normal Respiratory normal respiratory effort Extremities Bilateral LE redness, blister on R foot (unable to visualize clearly on video exam) Neurology no focal motor deficit noted and speech normal Psychiatry oriented x3 and cooperative Skin no rash Conclusion/Plan Lab Results Lab results reviewed: Yes 06/22/24 16:01 06/22/24 16:01 Diagnostic Imaging Results Diagnostic Imaging Results: positive Final report reviewed EKG Results EKG Interpreted Independently: Yes EKG Comparison: Unchanged from prior EKG Other Other Results/Comments: Assessment/Plan: Acute metabolic encephalopathy secondary to UTI and suspected community acquired pneumonia -Encephalaopathy is improving, patient is currently AAOx3 at time of my evaluation -Continue IV ceftriaxone and IV azithromycin -UA suggestive of UTI, per report malodorous urine noted at home -CXR with L sided opacification -No elevated leukocytosis, afebrile, O2 sats stable on RA -De-escalate to PO abx pending clinical course -CT head no acute findings Elevated troponin -Suspect chronic troponin leak related to severe underlying CHF, prior troponins have been in the 200s, currently troponin 90s x 2, flat -Patient denies chest pain or shortness of breath -Continue to monitor Chronic HFrEF History of CAD -EF 15-20% on echocardiogram Apr 2024 -Continue ASA, statin -BP is borderline, this is likely related to CHF, although could be component of acute infection -IF BP stable in a.m. please continue GDMT including BB, aldactone, lasix Chronic hyponatremia -Baseline sodium ~133 -Currently with psuedohyponatremia in setting of hyperglycemia - corrected Na 132 is near baseline DM II with hyperglycemia -Continue long acting insulin - consider increasing dose pending glucose trends -SSI ac/hs CKD stage III -Baseline Cr ~1.4 stable Full code DVT ppx Heparin sc Core Measures Anticipated LOS I expect patient to be DC'd or transferred within 96 hours.: Yes DVT/VTE - Prophylaxis VTE/DVT Device ordered at admit?: Yes Telemedicine Consult Details Provider Location & Consult Time Telemedicine consultation conducted via videoconferencing?: Yes List names and roles of persons who participated in consult:: Melanie LAM, patient and her daughter (over the phone), ER provider Telemedicine provider location:: [facility] We[facility]
[2024-06-22] MEDS ORDERED: ONDANSETRON 4 MG/2 ML VIAL IVP PRN (20:34)
[2024-06-22] MEDS ORDERED: SODIUM CHLORIDE FLUSH 0.9% 10 ML SYRINGE IVP PRN (20:34)
[2024-06-22] MEDS: ACETAMINOPHEN 325 MG TABLET PO PRN (21:06)
[2024-06-22] MEDS: MUPIROCIN 2% OINT 22 GM TUBE TOP SCH (22:49)
[2024-06-22] MEDS: AZITHROMYCIN INJ 500 MG in SODIUM CHLORIDE 0.9% 250 ML IV SCH (22:49)
[2024-06-23] MEDS: SODIUM CHLORIDE FLUSH 0.9% 10 ML SYRINGE IVP SCH (01:56)
[2024-06-23] MEDS: HEPARIN 5,000 UNIT/ML VIAL SUBQ SCH (08:38)
[2024-06-23] MEDS: INSULIN GLARGINE-YFGN 300 UNIT/3 ML PEN SUBQ SCH ×2 (08:45→21:04)
[2024-06-23] MEDS: INSULIN LISPRO 300 UNIT/3 ML PEN SUBQ SCH ×2 (08:46→17:25)
[2024-06-23] MEDS: ATORVASTATIN 40 MG TABLET PO SCH (08:47)
[2024-06-23] MEDS: ASPIRIN CHEW 81 MG TABLET PO SCH (08:47)
[2024-06-23] MEDS: FUROSEMIDE 40 MG TABLET PO SCH (08:47)
[2024-06-23] MEDS: cefTRIAXone 1 GM in SODIUM CHLORIDE 0.9% MINIBAG 100 ML IV SCH (08:48)
[2024-06-23 09:03] LABS: HGB - HEMOGLOBIN 12.9 g/dL (12.0-16.0); MEAN CORPUSCULAR HEMOGLOBIN 29.9 pg (27.0-31.0); MEAN CORPUSCULAR HGB CONC 32.3 g/dL (32.0-36.0); MEAN CORPUSCULAR VOLUME 92.6 fL (81.0-99.0); MEAN PLATELET VOLUME 10.3 fL (7.9-10.8); RED BLOOD COUNT 4.32 10^6/uL (4.20-5.40); RED CELL DISTRIBUTION WIDTH 18.4 % (12.0-15.0); WHITE BLOOD COUNT 6.1 x10^3/uL (4.8-10.8)
[2024-06-23 09:18] LABS: CALCIUM 9.4 mg/dL (8.5-10.3); CREATININE 1.3 mg/dL (0.6-1.3); POTASSIUM 3.3 mmol/L (3.5-4.5)
[2024-06-23] MEDS: DOCUSATE SODIUM 250 MG CAPSULE PO SCH (09:25)
[2024-06-23] MEDS: polyethylene glycoL 3350 17 GM PACKET PO SCH (09:25)
--- NOTE | 2024-06-23 09:29 | PROVIDER PROGRESS NOTE ---
Subjective Subjective Subjective: Today, patient is alert and oriented x 3. She still says that she feels little fuzzy, as well as confused. At this time, she denies any shortness of breath, fevers, chills. She does state that she is urinating more than usual, but denies any dysuria. She has a wound on her left ankle, which she says that she has been monitoring well. Her home situation was also discussed; she lives with her daughter, who is partially blind, but she is the one that helps her with her activities of daily living. She does have home health care at this time. She is not quite sure if that situation is sustainable. She is open to working with physical therapy. Current Medications Current Medications Current Medications: Current Medications Generic Name Dose Route Start Last Admin Trade Name Freq PRN Reason Stop Dose Admin Acetaminophen 650 mg 06/22/24 20:34 06/23/24 08:46 Acetaminophen 325 Mg Tablet PO 650 mg Q4HR PRN Administration Pain 1 to 4, or Fever Aspirin 81 mg 06/23/24 09:00 06/23/24 08:47 Aspirin Chew 81 Mg Tablet PO 81 mg DAILY CARO Administration Atorvastatin Calcium 40 mg 06/23/24 09:00 06/23/24 08:47 Atorvastatin 40 Mg Tablet PO 40 mg DAILY CARO Administration Docusate Sodium 250 - 500 mg 06/23/24 09:00 Docusate Sodium 250 Mg Capsule PO DAILY CARO Furosemide 40 mg 06/23/24 09:00 06/23/24 08:47 Furosemide 40 Mg Tablet PO 40 mg BID CARO Administration Heparin Sodium (Porcine) 5,000 unit 06/23/24 09:00 06/23/24 08:38 Heparin 5,000 Unit/Ml Vial SUBQ Not Given BID CARO Azithromycin 500 mg/ Sodium 250 mls @ 250 mls/hr 06/22/24 21:55 06/23/24 08:49 Chloride IV 250 mls/hr DAILY CARO Administration Ceftriaxone Sodium 1 gm/ 100 mls @ 200 mls/hr 06/23/24 09:00 06/23/24 08:48 Sodium Chloride IV 200 mls/hr DAILY CARO Administration Insulin Glargine-yfgn 9 unit 06/23/24 08:00 06/23/24 08:45 Insulin Glargine-Yfgn 300 Unit/3 Ml Pen SUBQ 9 unit QDBREAKFAST CARO Administration Insulin Human Lispro 4 unit 06/23/24 08:00 06/23/24 08:46 Insulin Lispro 300 Unit/3 Ml Pen SUBQ 4 unit QDBREAKFAST CARO Administration Mupirocin 1 applic 06/22/24 22:00 06/22/24 22:49 Mupirocin 2% Oint 22 Gm Tube TOP Not Given TID CARO Ondansetron HCl 4 mg 06/22/24 20:34 Ondansetron 4 Mg/2 Ml Vial IVP Q6HR PRN Nausea / Vomiting Polyethylene Glycol 17 gm 06/23/24 09:00 Polyethylene Glycol 3350 17 Gm Packet PO DAILY CARO Sodium Chloride 10 ml 06/22/24 20:34 Sodium Chloride Flush 0.9% 10 Ml Syringe IVP PRN PRN NEEDED PER PROVIDER ORDERS Sodium Chloride 10 ml 06/23/24 01:00 06/23/24 08:51 Sodium Chloride Flush 0.9% 10 Ml Syringe IVP 10 ml 0100,0900,1700 CARO Administration Objective Vital Signs/Intake & Output Reviewed Vital Signs: Yes Vital Signs: Vital Signs x48h Temp Pulse Resp BP Pulse Ox 06/23/24 07:15 98.1 F 62 16 102/50 L 95 06/23/24 05:30 98.1 F 60 16 102/54 L 97 Intake & Output: Intake & Output 06/21/24 06/22/24 06/23/24 06/24/24 05:59 05:59 05:59 05:59 Intake Total 760 / 760 Balance 760 / 760 Weight (kg) 50 kg Objective General Appearance: positive No acute distress; negative Anxious or Lethargic Eyes Bilateral: positive Normal inspection, PERRL and EOMI ENT: positive ENT inspection nml, Pharynx nml and No signs of dehydration Neck: positive Nml inspection, Thyroid nml and No JVD Respiratory: positive Chest non-tender and No respiratory distress Cardiovascular: positive Regular rate & rhythm and No murmur; negative Systolic murmur, Diastolic murmur or Friction rub Back: positive Nml inspection; negative CVA tenderness (R) or CVA tenderness (L) Skin: positive Color nml, No rash, Warm and Dry Extremities: positive Non-tender, Full ROM and Nml appearance; negative Pedal edema Neurologic/Psychiatric: positive Oriented x3, Motor nml and Mood/affect nml Lab Results 06/23/24 08:55 06/23/24 08:55 Other Labs: Lab Results x24hrs 06/23/24 06/22/24 06/22/24 Range/Units 08:55 17:44 17:10 WBC 6.1 (4.8-10.8) x10^3/uL RBC 4.32 (4.20-5.40) 10^6/uL Hgb 12.9 (12.0-16.0) g/dL Hct 40.0 (37.0-47.0) % MCV 92.6 (81.0-99.0) fL MCH 29.9 (27.0-31.0) pg MCHC 32.3 (32.0-36.0) g/dL RDW 18.4 H (12.0-15.0) % Plt Count 98 L (130-450) 10^3/uL MPV 10.3 (7.9-10.8) fL Neut # (Auto) (1.5-6.6) 10^3/uL Lymph # (Auto) (1.5-3.5) 10^3/uL [place] # (Auto) (0.0-1.0) 10^3/uL Eos # (Auto) (0.0-0.7) 10^3/uL Baso # (Auto) (0.0-0.1) 10^3/uL Absolute Nucleated RBC x10^3/uL Nucleated RBC % /100WBC Sodium 129 L (135-145) mmol/L Potassium 3.3 L (3.5-4.5) mmol/L Chloride 86 L (101-111) mmol/L Carbon Dioxide 36 H (21-32) mmol/L Anion Gap 7.0 (6-13) BUN 54 H (6-20) mg/dL Creatinine 1.3 (0.6-1.3) mg/dL Estimated GFR (MDRD) 40 L (>89) Glucose 244 H (74-104) mg/dL Calcium 9.4 (8.5-10.3) mg/dL Total Bilirubin (0.2-1.0) mg/dL AST (10-42) IU/L ALT (10-60) IU/L Alkaline Phosphatase (42-121) IU/L Troponin I High Sens 96.5 H* (2.3-14.8) ng/L Total Protein (6.4-8.9) g/dL Albumin (3.2-5.5) g/dL Globulin (2.1-4.2) g/dL Albumin/Globulin Ratio (1.0-2.2) Urine Color YELLOW Urine Clarity HAZY (CLEAR) Urine pH 7.0 (5.0-7.5) PH Ur Specific [place] 1.020 (1.002-1.030) Urine Protein 100 H (NEGATIVE) mg/dL Urine Glucose (UA) NEGATIVE (NEGATIVE) mg/dL Urine Ketones NEGATIVE (NEGATIVE) mg/dL Urine Occult Blood LARGE H (NEGATIVE) Urine Nitrite NEGATIVE (NEGATIVE) Urine Bilirubin NEGATIVE (NEGATIVE) Urine Urobilinogen 1 (NORMAL) (NORMAL) E.U./dL Ur Leukocyte Esterase SMALL H (NEGATIVE) Urine RBC 11-25 H (0-5) /HPF Urine WBC >25 H (0-5) /HPF Urine WBC Clumps PRESENT Ur Epithelial Cells FEW Renal Tubular (<= Few) /HPF Ur Squamous Epith Cells FEW Squamous (<= Few) Urine Bacteria Many H (None Seen) /HPF Urine Culture Comments INDICATED Nasal Influenza B PCR Nasal Influenza A PCR Nasal RSV (PCR) Nasal SARS-CoV-2 (PCR) Salicylates mg/dL Ethyl Alcohol mg/dL 06/22/24 06/22/24 Range/Units 16:01 15:50 WBC 6.1 (4.8-10.8) x10^3/uL RBC 4.03 L (4.20-5.40) 10^6/uL Hgb 12.1 (12.0-16.0) g/dL Hct 37.3 (37.0-47.0) % MCV 92.6 (81.0-99.0) fL MCH 30.0 (27.0-31.0) pg MCHC 32.4 (32.0-36.0) g/dL RDW 18.4 H (12.0-15.0) % Plt Count 97 L (130-450) 10^3/uL MPV 10.2 (7.9-10.8) fL Neut # (Auto) 4.7 (1.5-6.6) 10^3/uL Lymph # (Auto) 0.9 L (1.5-3.5) 10^3/uL [place] # (Auto) 0.5 (0.0-1.0) 10^3/uL Eos # (Auto) 0.0 (0.0-0.7) 10^3/uL Baso # (Auto) 0.0 (0.0-0.1) 10^3/uL Absolute Nucleated RBC 0.00 x10^3/uL Nucleated RBC % 0.0 /100WBC Sodium 127 L (135-145) mmol/L Potassium 4.1 (3.5-4.5) mmol/L Chloride 83 L (101-111) mmol/L Carbon Dioxide 37 H (21-32) mmol/L Anion Gap 7.0 (6-13) BUN 58 H (6-20) mg/dL Creatinine 1.4 H (0.6-1.3) mg/dL Estimated GFR (MDRD) 37 L (>89) Glucose 325 H (74-104) mg/dL Calcium 9.6 (8.5-10.3) mg/dL Total Bilirubin 3.0 H (0.2-1.0) mg/dL AST 32 (10-42) IU/L ALT 15 (10-60) IU/L Alkaline Phosphatase 223 H (42-121) IU/L Troponin I High Sens 95.4 H* (2.3-14.8) ng/L Total Protein 6.4 (6.4-8.9) g/dL Albumin 3.5 (3.2-5.5) g/dL Globulin 2.9 (2.1-4.2) g/dL Albumin/Globulin Ratio 1.2 (1.0-2.2) Urine Color Urine Clarity (CLEAR) Urine pH (5.0-7.5) PH Ur Specific [place] (1.002-1.030) Urine Protein (NEGATIVE) mg/dL Urine Glucose (UA) (NEGATIVE) mg/dL Urine Ketones (NEGATIVE) mg/dL Urine Occult Blood (NEGATIVE) Urine Nitrite (NEGATIVE) Urine Bilirubin (NEGATIVE) Urine Urobilinogen (NORMAL) E.U./dL Ur Leukocyte Esterase (NEGATIVE) Urine RBC (0-5) /HPF Urine WBC (0-5) /HPF Urine WBC Clumps Ur Epithelial Cells (<= Few) /HPF Ur Squamous Epith Cells (<= Few) Urine Bacteria (None Seen) /HPF Urine Culture Comments Nasal Influenza B PCR NOT DETECTED Nasal Influenza A PCR NOT DETECTED Nasal RSV (PCR) NOT DETECTED Nasal SARS-CoV-2 (PCR) NOT DETECTED Salicylates < 1.5 mg/dL Ethyl Alcohol < 10.0 mg/dL Diagnostic Imaging Diagnostic Imaging Results: positive Final report reviewed Assessment/Plan Problem List (1) Acute metabolic encephalopathy: Impression: Resolving. Patient is now alert and oriented x 3. She does still feel little confused, and "fuzzy." May be attributed to urinary tract infection vs. pneumonia. Patient does have mild cough and increased urinary frequency. No fevers, or chills. (2) Hyponatremia: Impression: Hold Lasix. Patient appears euvolemic at this time. Continue to trend. (3) Hypokalemia: Impression: Likely due to diuretic use. Continue to hold Lasix, continue to trend. (4) UTI (urinary tract infection): Impression: Continue to Rocephin. Qualifiers: Urinary tract infection type: acute pyelonephritis Qualified Code(s): N 10 - Acute pyelonephritis (5) Heart failure with reduced ejection fraction: Impression: Echo done 05/09 shows severely reduced systolic function of 15 to 20%. Severe tricuspid regurg, as well as mild mitral regurgitation is also seen. Patient's Lasix is currently held, she is euvolemic at this time. Will restart all her GDMT as able. Coreg to be restarted today with hold parameters, at a lower dose. Spironolactone, losartan currently held due to hypotension. (6) Peripheral vascular disease of extremity: Impression: Continue aspirin and statin. (7) Pacemaker: Impression: Continue to monitor, follow up with ward service supervisor outpatient. (8) Diabetes mellitus with hyperglycemia: Impression: Continue insulin glargine 9 units in the morning, sliding scale insulin with meals. Qualifiers: Diabetes mellitus penitentiary insulin use: with penitentiary use Diabetes mellitus type: type 2 Qualified Code(s): E11.65 - Type 2 diabetes mellitus with hyperglycemia; Z79.4 - detention (current) use of insulin (9) Severe protein-calorie malnutrition: Impression: 7 kg weight loss in 6 months, 12% body fat. Muscle and fat wasting is noted in the face and upper extremities. There are multiple skin excoriations and breakdowns due to decreased p.o. intake secondary to underlying CHF.
--- NOTE | 2024-06-23 11:29 | PHARMACY PROGRESS NOTE ---
Best Possible Medication History Admit Date and Time: 06/23/24 518056 Home Medications Medication Instructions Recorded Confirmed Type aspirin 81 mg chewable tablet 81 mg PO DAILY 12/15/23 06/23/24 History atorvastatin 40 mg tablet 40 mg PO DAILY 12/15/23 06/23/24 History insulin human U-100 NPH-regulr 13 unit SQ QDBREAKFAST 12/15/23 06/23/24 History 70-30 mix 100 unit/mL subcutaneous susp (Novolin 70/30 U-100 Insulin) spironolactone 25 mg tablet 25 mg PO DAILY 12/15/23 06/23/24 History (Aldactone) magnesium 250 mg tablet 250 mg PO DAILY 04/19/24 06/23/24 History metformin 500 mg tablet 1,500 mg PO QDDINNER 06/23/24 06/23/24 History metolazone 2.5 mg tablet 2.5 mg PO DAILY 06/23/24 06/23/24 History metoprolol succinate 25 mg 25 mg PO DAILY 06/23/24 06/23/24 History tablet,extended release 24 hr torsemide 20 mg tablet 20 mg PO DAILY 06/23/24 06/23/24 History Processed by: Pharmacy Medications reviewed in ED?: No Medication History completed: Yes Patient Interview: Completed Secondary Source(s): Pharmacy records and Insurance records [facility] Statement: As the person ultimately responsible for medication therapy, providers are able to order a medication from an existing home medication list in [facility] via the "Reconcile Routine" prior to Confirmation of that medication by support clerk. Such practice is discouraged except when the physician, in their clinical judgment, deems that a medical need exists for a medication without regard to previous use.
[2024-06-23] MEDS: carvediloL 3.125 MG TABLET PO SCH (12:45)
[2024-06-23 12:51] LABS: ESTIMATED AVERAGE GLUCOSE 171 mg/dL (70-100); HEMOGLOBIN A1c% 7.6 % (4.27-6.07)
--- NOTE | 2024-06-23 13:31 | PT Plan of Care ---
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 She has history of CHF, DM II, CKD, and DVT. She reports to live at home with her daughter, Willa, that is partially blind and their pet dog. States her daughter helps with ADLS. She has 2 steps to enter their single level home without a handrail. Pt states taking sponge baths occasionally since she cannot use their bathtub. During PT eval, pt was A&Ox3 but was very slow to speak and move. She was able to demonstrate getting to EOB CGAx1. She reported feeling dizzy in sitting but soon recovered. Her STS is MinAx1 with FWW and requires cueing to stand upright. Again she reported feeling dizzy and BP had dropped to 94/48; after a few breaths she reported to recover. She completed side stepping to bedside chair MinAx1 with FWW for about 3'. Pts BP returned to pre-activity BP end of session and she did not report any symptoms. Throughout PT eval patient is slow to respond, complete tasks and requires verbal cueing to attend to tasks during session. Patient will benefit from skilled PT due to general weakness. When medically cleared PT recommends discharge SNF. PATIENT/FAMILY GOALS Patient/Family Goals: go home GOALS Improve supine to sit to:: Modified Independent Improve sit to stand to:: Modified Independent Improve pivot transfer ability to:: Modified Independent Improve gait ability to:: SBA Advance Assistive Device to:: Front Wheeled Walker Increase distance walked to (in feet):: 10 Improve Sitting Balance to:: Good PLAN Frequency: 1-2x/day Duration: Until goals are met DISCHARGE RECOMMENDATIONS Discharge Location: [facility] Facility Support/Services Needed: With assist DC Equipment Recommended: Front wheeled walker Other Discharge Equipment: has 4WW, may need FWW Transport Needs at Discharge: Wheelchair van Other: Pt sitting balance is limited due to hypotensive state.
[2024-06-23] MEDS: POTASSIUM CHLORIDE 20 MEQ TABLET PO ONE (14:18)
[2024-06-24 05:22] LABS: HCT - HEMATOCRIT 36.2 % (37.0-47.0); HGB - HEMOGLOBIN 11.9 g/dL (12.0-16.0); MEAN CORPUSCULAR HEMOGLOBIN 30.1 pg (27.0-31.0); MEAN CORPUSCULAR HGB CONC 32.9 g/dL (32.0-36.0); MEAN CORPUSCULAR VOLUME 91.4 fL (81.0-99.0); MEAN PLATELET VOLUME 11.4 fL (7.9-10.8); RED BLOOD COUNT 3.96 10^6/uL (4.20-5.40); RED CELL DISTRIBUTION WIDTH 18.3 % (12.0-15.0); WHITE BLOOD COUNT 7.2 x10^3/uL (4.8-10.8)
[2024-06-24 05:40] LABS: CALCIUM 8.7 mg/dL (8.5-10.3); CREATININE 1.3 mg/dL (0.6-1.3); POTASSIUM 3.9 mmol/L (3.5-4.5)
[2024-06-24] MEDS: INSULIN LISPRO 300 UNIT/3 ML PEN SUBQ SCH ×2 (08:23→12:13)
[2024-06-24] MEDS: SODIUM CHLORIDE 0.9% 500 ML IV ONE ×2 (08:37→14:45)
--- NOTE | 2024-06-24 08:46 | PROVIDER PROGRESS NOTE ---
Subjective Subjective Subjective: Today, patient is alert and oriented x 3. She still says that she feels little fuzzy, as well as confused. At this time, she denies any shortness of breath, fevers, chills. She does state that she is urinating more than usual, but denies any dysuria. She has a wound on her left ankle, which she says that she has been monitoring well. Her home situation was also discussed; she lives with her daughter, who is partially blind, but she is the one that helps her with her activities of daily living. She does have home health care at this time. She is not quite sure if that situation is sustainable. She is open to working with physical therapy, and is open to going to SNF. Current Medications Current Medications Current Medications: Current Medications Generic Name Dose Route Start Last Admin Trade Name Freq PRN Reason Stop Dose Admin Acetaminophen 650 mg 06/22/24 20:34 06/24/24 00:26 Acetaminophen 325 Mg Tablet PO 650 mg Q4HR PRN Administration Pain 1 to 4, or Fever Aspirin 81 mg 06/23/24 09:00 06/24/24 08:25 Aspirin Chew 81 Mg Tablet PO 81 mg DAILY CARO Administration Atorvastatin Calcium 40 mg 06/23/24 09:00 06/24/24 08:26 Atorvastatin 40 Mg Tablet PO 40 mg DAILY CARO Administration Carvedilol 3.125 mg 06/23/24 11:00 06/24/24 08:26 Carvedilol 3.125 Mg Tablet PO 3.125 mg BID CARO Administration Docusate Sodium 250 - 500 mg 06/23/24 09:00 06/24/24 08:25 Docusate Sodium 250 Mg Capsule PO 250 mg DAILY CARO Administration Heparin Sodium (Porcine) 5,000 unit 06/23/24 09:00 06/24/24 08:34 Heparin 5,000 Unit/Ml Vial SUBQ Not Given BID [facility] Ceftriaxone Sodium 1 gm/ 100 mls @ 200 mls/hr 06/23/24 09:00 06/23/24 09:05 Sodium Chloride IV Infused DAILY CARO Infusion Sodium Chloride 500 mls @ 250 mls/hr 06/24/24 07:22 Normal Saline 0.9% IV 06/24/24 09:21 ONCE ONE Insulin Glargine-yfgn 9 unit 06/23/24 08:00 06/24/24 08:24 Insulin Glargine-Yfgn 300 Unit/3 Ml Pen SUBQ 9 unit QDBREAKFAST CARO Administration Insulin Glargine-yfgn 8 unit 06/23/24 21:00 06/23/24 21:04 Insulin Glargine-Yfgn 300 Unit/3 Ml Pen SUBQ 8 unit QPM CARO Administration Insulin Human Lispro 1 - 5 unit 06/24/24 12:00 06/24/24 08:23 Insulin Lispro 300 Unit/3 Ml Pen SUBQ 3 unit 0800,1200,1700,2100 CARO Administration Protocol Mupirocin 1 applic 06/22/24 22:00 06/24/24 05:02 Mupirocin 2% Oint 22 Gm Tube TOP 1 applic TID CARO Administration Ondansetron HCl 4 mg 06/22/24 20:34 Ondansetron 4 Mg/2 Ml Vial IVP Q6HR PRN Nausea / Vomiting Polyethylene Glycol 17 gm 06/23/24 09:00 06/23/24 09:25 Polyethylene Glycol 3350 17 Gm Packet PO 17 gm DAILY CARO Administration Sodium Chloride 10 ml 06/22/24 20:34 Sodium Chloride Flush 0.9% 10 Ml Syringe IVP PRN PRN NEEDED PER PROVIDER ORDERS Sodium Chloride 10 ml 06/23/24 01:00 06/24/24 08:27 Sodium Chloride Flush 0.9% 10 Ml Syringe IVP 10 ml 0100,0900,1700 CARO Administration Objective Vital Signs/Intake & Output Reviewed Vital Signs: Yes Vital Signs: Vital Signs x48h Temp Pulse Resp BP Pulse Ox 06/24/24 07:50 97.9 F 63 18 106/60 95 06/24/24 05:28 98.1 F 58 L 18 105/56 L 96 Intake & Output: Intake & Output 06/22/24 06/23/24 06/24/24 06/25/24 05:59 05:59 05:59 05:59 Intake Total 760 / 760 1310 / 1310 100 / 100 Balance 760 / 760 1310 / 1310 100 / 100 Weight (kg) 50 kg Objective General Appearance: positive No acute distress; negative Anxious or Lethargic Eyes Bilateral: positive Normal inspection, PERRL and EOMI ENT: positive ENT inspection nml, Pharynx nml and No signs of dehydration Neck: positive Nml inspection, Thyroid nml and No JVD Respiratory: positive Chest non-tender and No respiratory distress Cardiovascular: positive Regular rate & rhythm and No murmur; negative Systolic murmur, Diastolic murmur or Friction rub Back: positive Nml inspection; negative CVA tenderness (R) or CVA tenderness (L) Skin: positive Color nml, No rash, Warm and Dry Extremities: positive Non-tender, Full ROM and Nml appearance; negative Pedal edema Neurologic/Psychiatric: positive Oriented x3, Motor nml and Mood/affect nml Lab Results 06/24/24 05:15 06/24/24 11:27 Other Labs: Lab Results x24hrs 06/24/24 06/24/24 06/23/24 Range/Units 07:46 05:15 20:04 WBC 7.2 (4.8-10.8) x10^3/uL RBC 3.96 L (4.20-5.40) 10^6/uL Hgb 11.9 L (12.0-16.0) g/dL Hct 36.2 L (37.0-47.0) % MCV 91.4 (81.0-99.0) fL MCH 30.1 (27.0-31.0) pg MCHC 32.9 (32.0-36.0) g/dL RDW 18.3 H (12.0-15.0) % Plt Count 100 L (130-450) 10^3/uL MPV 11.4 H (7.9-10.8) fL Sodium 126 L (135-145) mmol/L Potassium 3.9 (3.5-4.5) mmol/L Chloride 88 L (101-111) mmol/L Carbon Dioxide 31 (21-32) mmol/L Anion Gap 7.0 (6-13) BUN 52 H (6-20) mg/dL Creatinine 1.3 (0.6-1.3) mg/dL Estimated GFR (MDRD) 40 L (>89) Glucose 300 H (74-104) mg/dL POC Whole Bld Glucose 262 286 (70-100) mg/dL Estimat Average Glucose (70-100) mg/dL Hemoglobin A1c % (4.27-6.07) % Calcium 8.7 (8.5-10.3) mg/dL Vitamin B12 (180-914) pg/mL 06/23/24 06/23/24 06/23/24 Range/Units 16:13 11:12 08:55 WBC 6.1 (4.8-10.8) x10^3/uL RBC 4.32 (4.20-5.40) 10^6/uL Hgb 12.9 (12.0-16.0) g/dL Hct 40.0 (37.0-47.0) % MCV 92.6 (81.0-99.0) fL MCH 29.9 (27.0-31.0) pg MCHC 32.3 (32.0-36.0) g/dL RDW 18.4 H (12.0-15.0) % Plt Count 98 L (130-450) 10^3/uL MPV 10.3 (7.9-10.8) fL Sodium 129 L (135-145) mmol/L Potassium 3.3 L (3.5-4.5) mmol/L Chloride 86 L (101-111) mmol/L Carbon Dioxide 36 H (21-32) mmol/L Anion Gap 7.0 (6-13) BUN 54 H (6-20) mg/dL Creatinine 1.3 (0.6-1.3) mg/dL Estimated GFR (MDRD) 40 L (>89) Glucose 244 H (74-104) mg/dL POC Whole Bld Glucose 306 282 (70-100) mg/dL Estimat Average Glucose 171 H (70-100) mg/dL Hemoglobin A1c % 7.6 H (4.27-6.07) % Calcium 9.4 (8.5-10.3) mg/dL Vitamin B12 402 (180-914) pg/mL Diagnostic Imaging Diagnostic Imaging Results: positive Final report reviewed Assessment/Plan Problem List (1) Acute metabolic encephalopathy: Impression: Resolving. Patient is now alert and oriented x 3. She does still feel little confused, and "fuzzy." May be attributed to urinary tract infection. Patient does have increased urinary frequency. No fevers, or chills. (2) Hyponatremia: Impression: Hold Lasix. Will give 250 cc bolus of 0.9 NS, recheck sodium after. Caution with IVF in setting of CHF with EF of 10-15%. . (3) Hypokalemia: Impression: Likely due to diuretic use. Continue to hold Lasix, continue to trend. (4) UTI (urinary tract infection): Impression: Continue Rocephin. Qualifiers: Urinary tract infection type: acute pyelonephritis Qualified Code(s): N 10 - Acute pyelonephritis (5) Heart failure with reduced ejection fraction: Impression: Echo done 05/09 shows severely reduced systolic function of 15 to 20%. Severe tricuspid regurg, as well as mild mitral regurgitation is also seen. Patient's Lasix is currently held, she is euvolemic at this time. Will restart all her GDMT as able. Coreg to be restarted today with hold parameters, at a lower dose. Spironolactone, losartan currently held due to hypotension. (6) Peripheral vascular disease of extremity: Impression: Continue aspirin and statin. (7) Pacemaker: Impression: Continue to monitor, follow up with veterinarian assistant outpatient. (8) Diabetes mellitus with hyperglycemia: Impression: Patient with uncontrolled sugars. A1c 7.6%. Continue insulin glargine 9 units in the morning, 8 units at night, sliding scale insulin with meals. 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 Muscle and fat wasting is noted in the face and upper extremities. There are multiple skin excoriations and breakdowns due to decreased p.o. intake secondary to underlying CHF. Nutrition consulted.
--- NOTE | 2024-06-24 11:29 | OT Plan of Care ---
OT Inpatient POC Diagnosis DIAGNOSIS Diagnosis: Acute Metabolic Encephalopathy Diagnosis: UTI Chief Complaint: General weakness, fatigue Onset of Chief Complaint: APN MEDICAL/SURGICAL HISTORY Medical History (Updated 06/23/24 @ 13:46 by Tara Osborne MD) Hx of myocardial infarction Assessment and Goals ASSESSMENT Assessment: Pt is a 74 yo female referred to OT for an evaluation secondary to weakness. Pt seated on bedside chair on arrival, agreeable to participate. Pt engaged in seated ADL task fro washing face with towel and toothbrushing. Was able to place towel on table and brush teeth in slow paced manner. Required assistance to loosen toothpaste cap and remove aluminum cover. Pt required Min A x1 for sit to stand w FWW, demonstrating anxiousness due to expected pain during new position. Pt as instructed to weight shift and required vc to stand up to move forward chest and arms. Pt also required vc to straighten body once assuming standing position, pt denied any dizziness. She req minAx1 for bed mobility to lift LE into bed. Pt positioned in supine with bed alarm on, call porter upon reach, warm blankets and pillows to decrease pressure on hips and to lift LE. All needs met, and recommendations given for additional grab bars at bathtub for her home. Pt will continue to benefit from skilled OT services in acute care setting to address weakness and modified task performance during ADLs and functional mobility. Recommend D/C to SNF for addressing limited strength, mobility and balance and use of energy conservation strategies or task modifications during ADL tasks. -Activities of Daily Living Improve Upper Extremity Dressing to:: Modified Independent Improve Lower Extremity Dressing to:: Modified Independent Improve Grooming/Hygiene to:: Modified Independent Improve Bathing to:: Modified Independent Improve Toileting to:: Modified Independent OT Inpatient Plan PLAN Treatment Frequency: 1x/day Duration: Until discharge -Discharge Recommendations Discharge Location: [facility] Facility Support/Services Needed: With assist Recommended Equipment: Grab bars Transport Needs at Discharge: Wheelchair van Comment: Additional Grab bars on bathtub
[2024-06-24] MEDS ORDERED: INSULIN LISPRO 300 UNIT/3 ML PEN SUBQ SCH (12:00)
[2024-06-25 05:21] LABS: HCT - HEMATOCRIT 37.1 % (37.0-47.0); HGB - HEMOGLOBIN 12.3 g/dL (12.0-16.0); MEAN CORPUSCULAR HEMOGLOBIN 30.2 pg (27.0-31.0); MEAN CORPUSCULAR HGB CONC 33.2 g/dL (32.0-36.0); MEAN CORPUSCULAR VOLUME 91.2 fL (81.0-99.0); RED BLOOD COUNT 4.07 10^6/uL (4.20-5.40); RED CELL DISTRIBUTION WIDTH 18.4 % (12.0-15.0); WHITE BLOOD COUNT 6.2 x10^3/uL (4.8-10.8)
[2024-06-25 05:36] LABS: CALCIUM 8.5 mg/dL (8.5-10.3); CREATININE 1.1 mg/dL (0.6-1.3); MAGNESIUM 1.8 mg/dL (1.7-2.3); POTASSIUM 3.9 mmol/L (3.5-4.5)
[2024-06-25] MEDS: INSULIN LISPRO 300 UNIT/3 ML PEN SUBQ SCH ×3 (08:35→16:47)
[2024-06-25] MEDS: SODIUM CHLORIDE 0.9% 250 ML IV ONE (09:28)
[2024-06-25] MEDS: SODIUM CHLORIDE 0.9% 1,000 ML IV SCH (10:00)
--- NOTE | 2024-06-25 10:39 | PROVIDER PROGRESS NOTE ---
Subjective Subjective Subjective: Today, patient is alert and oriented x 3. She says that her confusion and "fuzziness" is improving. She is slow to respond. At this time, she denies any shortness of breath, fevers, chills. She does state that she is urinating more than usual, but denies any dysuria. She has a wound on her left ankle, which she says that she has been monitoring well. Her home situation was also discussed; she lives with her daughter, who is partially blind, but she is the one that helps her with her activities of daily living. She does have home health care at this time. She is not quite sure if that situation is sustainable. She is open to working with physical therapy, and is open to going to SNF. Social work working on SNF placement. Current Medications Current Medications Current Medications: Current Medications Generic Name Dose Route Start Last Admin Trade Name Freq PRN Reason Stop Dose Admin Acetaminophen 650 mg 06/22/24 20:34 06/24/24 15:52 Acetaminophen 325 Mg Tablet PO 650 mg Q4HR PRN Administration Pain 1 to 4, or Fever Aspirin 81 mg 06/23/24 09:00 06/25/24 08:37 Aspirin Chew 81 Mg Tablet PO 81 mg DAILY CARO Administration Atorvastatin Calcium 40 mg 06/23/24 09:00 06/25/24 08:37 Atorvastatin 40 Mg Tablet PO 40 mg DAILY CARO Administration Carvedilol 3.125 mg 06/23/24 11:00 06/25/24 08:37 Carvedilol 3.125 Mg Tablet PO 3.125 mg BID CARO Administration Docusate Sodium 250 - 500 mg 06/23/24 09:00 06/25/24 08:37 Docusate Sodium 250 Mg Capsule PO 250 mg DAILY CARO Administration Heparin Sodium (Porcine) 5,000 unit 06/23/24 09:00 06/25/24 08:37 Heparin 5,000 Unit/Ml Vial SUBQ Not Given BID CARO Ceftriaxone Sodium 1 gm/ 100 mls @ 200 mls/hr 06/23/24 09:00 06/25/24 09:10 Sodium Chloride IV Infused DAILY CARO Infusion Sodium Chloride 250 mls @ 75 mls/hr 06/25/24 09:17 06/25/24 09:28 Normal Saline 0.9% IV 06/25/24 12:36 75 mls/hr ONCE ONE Administration Insulin Glargine-yfgn 9 unit 06/23/24 08:00 06/25/24 08:35 Insulin Glargine-Yfgn 300 Unit/3 Ml Pen SUBQ 9 unit QDBREAKFAST CARO Administration Insulin Glargine-yfgn 8 unit 06/23/24 21:00 06/24/24 20:54 Insulin Glargine-Yfgn 300 Unit/3 Ml Pen SUBQ 8 unit QPM CARO Administration Insulin Human Lispro 2 - 10 unit 06/25/24 08:15 06/25/24 08:35 Insulin Lispro 300 Unit/3 Ml Pen SUBQ 8 unit 0800,1200,1700,2100 CARO Administration Protocol Insulin Human Lispro 5 unit 06/25/24 12:00 Insulin Lispro 300 Unit/3 Ml Pen SUBQ TIDWM [facility] Mupirocin 1 applic 06/22/24 22:00 06/25/24 06:26 Mupirocin 2% Oint 22 Gm Tube TOP 1 applic TID CARO Administration Ondansetron HCl 4 mg 06/22/24 20:34 Ondansetron 4 Mg/2 Ml Vial IVP Q6HR PRN Nausea / Vomiting Polyethylene Glycol 17 gm 06/23/24 09:00 06/25/24 08:38 Polyethylene Glycol 3350 17 Gm Packet PO Not Given DAILY [facility] Sodium Chloride 10 ml 06/22/24 20:34 Sodium Chloride Flush 0.9% 10 Ml Syringe IVP PRN PRN NEEDED PER PROVIDER ORDERS Sodium Chloride 10 ml 06/23/24 01:00 06/25/24 08:38 Sodium Chloride Flush 0.9% 10 Ml Syringe IVP 10 ml 0100,0900,1700 CARO Administration Objective Vital Signs/Intake & Output Reviewed Vital Signs: Yes Vital Signs: Vital Signs x48h Temp Pulse Resp BP Pulse Ox 06/25/24 07:33 98.2 F 62 20 109/58 L 95 06/25/24 06:29 98.1 F 57 L 18 102/57 L 96 Intake & Output: Intake & Output 06/23/24 06/24/24 06/25/24 06/26/24 05:59 05:59 05:59 05:59 Intake Total 760 / 760 1310 / 1310 2434 / 2434 100 / 100 Output Total Balance 760 / 760 1310 / 1310 2433 / 2433 100 / 100 Weight (kg) 50 kg Objective General Appearance: positive No acute distress; negative Anxious or Lethargic Eyes Bilateral: positive Normal inspection, PERRL and EOMI ENT: positive ENT inspection nml, Pharynx nml and No signs of dehydration Neck: positive Nml inspection, Thyroid nml and No JVD Respiratory: positive Chest non-tender and No respiratory distress Cardiovascular: positive Regular rate & rhythm and No murmur; negative Systolic murmur, Diastolic murmur or Friction rub Back: positive Nml inspection; negative CVA tenderness (R) or CVA tenderness (L) Skin: positive Color nml, No rash, Warm and Dry Extremities: positive Non-tender, Full ROM and Nml appearance; negative Pedal edema Neurologic/Psychiatric: positive Oriented x3, Motor nml and Mood/affect nml Lab Results 06/25/24 05:00 06/25/24 05:00 Other Labs: Lab Results x24hrs 06/25/24 06/25/24 06/24/24 Range/Units 07:25 05:00 19:37 WBC 6.2 (4.8-10.8) x10^3/uL RBC 4.07 L (4.20-5.40) 10^6/uL Hgb 12.3 (12.0-16.0) g/dL Hct 37.1 (37.0-47.0) % MCV 91.2 (81.0-99.0) fL MCH 30.2 (27.0-31.0) pg MCHC 33.2 (32.0-36.0) g/dL RDW 18.4 H (12.0-15.0) % Plt Count 100 L (130-450) 10^3/uL MPV 11.0 H (7.9-10.8) fL Sodium 126 L (135-145) mmol/L Potassium 3.9 (3.5-4.5) mmol/L Chloride 92 L (101-111) mmol/L Carbon Dioxide 26 (21-32) mmol/L Anion Gap 8.0 (6-13) BUN 46 H (6-20) mg/dL Creatinine 1.1 (0.6-1.3) mg/dL Estimated GFR (MDRD) 48 L (>89) Glucose 317 H (74-104) mg/dL POC Whole Bld Glucose 303 268 (70-100) mg/dL Calcium 8.5 (8.5-10.3) mg/dL Magnesium 1.8 (1.7-2.3) mg/dL 06/24/24 06/24/24 06/24/24 Range/Units 16:19 11:27 11:24 WBC (4.8-10.8) x10^3/uL RBC (4.20-5.40) 10^6/uL Hgb (12.0-16.0) g/dL Hct (37.0-47.0) % MCV (81.0-99.0) fL MCH (27.0-31.0) pg MCHC (32.0-36.0) g/dL RDW (12.0-15.0) % Plt Count (130-450) 10^3/uL MPV (7.9-10.8) fL Sodium 128 L (135-145) mmol/L Potassium (3.5-4.5) mmol/L Chloride (101-111) mmol/L Carbon Dioxide (21-32) mmol/L Anion Gap (6-13) BUN (6-20) mg/dL Creatinine (0.6-1.3) mg/dL Estimated GFR (MDRD) (>89) Glucose (74-104) mg/dL POC Whole Bld Glucose 238 306 (70-100) mg/dL Calcium (8.5-10.3) mg/dL Magnesium (1.7-2.3) mg/dL Diagnostic Imaging Diagnostic Imaging Results: positive Final report reviewed Assessment/Plan Problem List (1) Acute metabolic encephalopathy: Impression: Resolving. Patient is now alert and oriented x 3. She is slow to respond. May be attributed to urinary tract infection. Patient does have increased urinary frequency. No fevers, or chills. (2) UTI (urinary tract infection): Impression: Completed 3 days of Rocephin. Urine culture is growing E.Coli, which is pansusceptible. Will switch her to Macrobid starting tomorrow, to complete five day course (last day 06/26). Qualifiers: Urinary tract infection type: acute pyelonephritis Qualified Code(s): N 10 - Acute pyelonephritis (3) Hyponatremia: Impression: Likely hypovolemic, hypo-osmolar. Hold Lasix. Will give 250 cc bolus of 0.9 NS, recheck sodium after. Caution with IVF in setting of CHF with EF of 10-15%. . (4) Hypokalemia: Impression: Likely due to diuretic use. Continue to hold Lasix, continue to trend. (5) Heart failure with reduced ejection fraction: Impression: Echo done 05/09 shows severely reduced systolic function of 15 to 20%. Severe tricuspid regurg, as well as mild mitral regurgitation is also seen. Patient's Lasix is currently held, she is euvolemic at this time. Will restart all her GDMT as able. Coreg to be restarted today with hold parameters, at a lower dose. Spironolactone, losartan currently held due to hypotension. (6) Peripheral vascular disease of extremity: Impression: Continue aspirin and statin. (7) Pacemaker: Impression: Continue to monitor, follow up with mock up maker outpatient. (8) Diabetes mellitus with hyperglycemia: Impression: Patient with uncontrolled sugars. A1c 7.6%. Continue insulin glargine 9 units in the morning, 8 units at night, sliding scale insulin with meals. Patient with continued elevated blood sugars; will schedule meal time insulin and increase sliding scale from low to moderate. Qualifiers: Diabetes mellitus type: type 2 Diabetes mellitus terminal carman insulin use: with terminal carman use Qualified Code(s): E11.65 - Type 2 diabetes mellitus with hyperglycemia; Z79.4 - snf (current) use of insulin (9) Severe protein-calorie malnutrition: Impression: 7 kg weight loss in 6 months, 12% body fat. Muscle and fat wasting is noted in the face and upper extremities. There are multiple skin excoriations and breakdowns due to decreased p.o. intake secondary to underlying CHF. Nutrition consulted. Encourage P.O. intake and protein supplementation.
[2024-06-25 14:28] LABS: CALCIUM 8.4 mg/dL (8.5-10.3); CREATININE 1.1 mg/dL (0.6-1.3); POTASSIUM 2.9 mmol/L (3.5-4.5)
[2024-06-25] MEDS: POTASSIUM CHLORIDE 20 MEQ TABLET PO ONE (16:04)
[2024-06-25] MEDS: POTASSIUM CHLOR 10 MEQ/100 ML 10 MEQ/100 ML BAG IV SCH (16:08)
[2024-06-26 05:31] LABS: HCT - HEMATOCRIT 36.2 % (37.0-47.0); HGB - HEMOGLOBIN 11.8 g/dL (12.0-16.0); MEAN CORPUSCULAR HEMOGLOBIN 29.9 pg (27.0-31.0); MEAN CORPUSCULAR HGB CONC 32.6 g/dL (32.0-36.0); MEAN CORPUSCULAR VOLUME 91.9 fL (81.0-99.0); MEAN PLATELET VOLUME 10.4 fL (7.9-10.8); RED BLOOD COUNT 3.94 10^6/uL (4.20-5.40); RED CELL DISTRIBUTION WIDTH 18.4 % (12.0-15.0); WHITE BLOOD COUNT 6.2 x10^3/uL (4.8-10.8)
[2024-06-26 05:52] LABS: CALCIUM 8.3 mg/dL (8.5-10.3); MAGNESIUM 1.8 mg/dL (1.7-2.3); POTASSIUM 4.3 mmol/L (3.5-4.5)
[2024-06-26] MEDS: NITROFURANTOIN MACRO 100 MG CAPSULE PO SCH (08:52)
--- NOTE | 2024-06-26 18:15 | PROVIDER PROGRESS NOTE ---
Subjective Prog Note Date Prog Note Date: 06/26/24 Prog Note Time: 18:13 Subjective Pt reports feeling: No change Subjective: exhausted. cold and has 4 blankets. legs are less edematous. No pain in chest or abd. just has no energy and minimal appetite. Current Medications Current Medications Current Medications: Current Medications Generic Name Dose Route Start Last Admin Trade Name Freq PRN Reason Stop Dose Admin Acetaminophen 650 mg 06/22/24 20:34 06/26/24 16:53 Acetaminophen 325 Mg Tablet PO 650 mg Q4HR PRN Administration Pain 1 to 4, or Fever Aspirin 81 mg 06/23/24 09:00 06/26/24 08:50 Aspirin Chew 81 Mg Tablet PO 81 mg DAILY CARO Administration Atorvastatin Calcium 40 mg 06/23/24 09:00 06/26/24 08:51 Atorvastatin 40 Mg Tablet PO 40 mg DAILY CARO Administration Carvedilol 3.125 mg 06/23/24 11:00 06/26/24 08:51 Carvedilol 3.125 Mg Tablet PO Not Given BID COUNTS INCLUDE 234 BEDS AT THE [facility] Docusate Sodium 250 - 500 mg 06/23/24 09:00 06/26/24 08:51 Docusate Sodium 250 Mg Capsule PO Not Given DAILY COUNTS INCLUDE 234 BEDS AT THE [facility] Heparin Sodium (Porcine) 5,000 unit 06/23/24 09:00 06/26/24 08:52 Heparin 5,000 Unit/Ml Vial SUBQ Not Given BID COUNTS INCLUDE 234 BEDS AT THE [facility] Insulin Glargine-yfgn 9 unit 06/23/24 08:00 06/26/24 08:48 Insulin Glargine-Yfgn 300 Unit/3 Ml Pen SUBQ 9 unit QDBREAKFAST COUNTS INCLUDE 234 BEDS AT THE [facility] Administration Insulin Glargine-yfgn 8 unit 06/23/24 21:00 06/25/24 20:59 Insulin Glargine-Yfgn 300 Unit/3 Ml Pen SUBQ Not Given QPM COUNTS INCLUDE 234 BEDS AT THE [facility] Insulin Human Lispro 3 - 11 unit 06/25/24 17:00 06/26/24 16:56 Insulin Lispro 300 Unit/3 Ml Pen SUBQ 9 unit 0800,1200,1700,2100 COUNTS INCLUDE 234 BEDS AT THE [facility] Administration Protocol Mupirocin 1 applic 06/22/24 22:00 06/26/24 14:21 Mupirocin 2% Oint 22 Gm Tube TOP 1 applic TID COUNTS INCLUDE 234 BEDS AT THE [facility] Administration Nitrofurantoin 100 mg 06/26/24 09:00 06/26/24 08:52 Nitrofurantoin Macro 100 Mg Capsule PO 100 mg BID CARO Administration Ondansetron HCl 4 mg 06/22/24 20:34 Ondansetron 4 Mg/2 Ml Vial IVP Q6HR PRN Nausea / Vomiting Polyethylene Glycol 17 gm 06/23/24 09:00 06/26/24 08:51 Polyethylene Glycol 3350 17 Gm Packet PO Not Given DAILY CARO Sodium Chloride 10 ml 06/22/24 20:34 Sodium Chloride Flush 0.9% 10 Ml Syringe IVP PRN PRN NEEDED PER PROVIDER ORDERS Sodium Chloride 10 ml 06/23/24 01:00 06/26/24 16:58 Sodium Chloride Flush 0.9% 10 Ml Syringe IVP 10 ml 0100,0900,1700 CARO Administration Objective Vital Signs/Intake & Output Reviewed Vital Signs: Yes Vital Signs: Vital Signs x48h Temp Pulse Resp BP Pulse Ox 06/26/24 15:35 36.7 C 86 20 105/60 97 Intake & Output: Intake & Output 06/24/24 06/25/24 06/26/24 06/27/24 05:59 05:59 05:59 05:59 Intake Total 1310 / 1310 2434 / 2434 970 / 970 570 / 570 Output Total 150 / 150 Balance 1310 / 1310 2433 / 2433 970 / 970 420 / 420 Objective General Appearance: positive No acute distress and Other (sleepy, slow to respond, but once awake ok to speak. no resp distress but listless, anhedonic. ) ENT: positive No signs of dehydration Neck: positive No JVD; negative Stiff neck Respiratory: positive No respiratory distress; negative Breath sounds nml (very quite lung sounds in mid lungs, none in apices), Wheezes or Rhonchi Cardiovascular: positive Regular rate & rhythm and No murmur (but quiet S1 in RUSB) Abdomen: positive Non-tender, No organomegaly and Nml bowel sounds Skin: positive Other (venous stasis rubor/redness from knees on down; shriveled wrinkled shins, not hot. simple skin breaks (1 on right ankle, 2 on left), not infected. skin is thick) Extremities: positive Non-tender and Pedal edema (trace but she states edema much, much less than on admit) Neurologic/Psychiatric: positive Oriented x3, CN's nml (2-12) and Other (comfortable at rest, but with supine to sit and stand, needs assist. gets tachypneic, stands w walker and leans forward, shuffles feet, hard to lift and walk more than one foot. ) Lab Results 06/26/24 05:00 06/26/24 05:00 Other Labs: Lab Results x24hrs 06/26/24 06/26/24 06/26/24 Range/Units 11: 07:35 05:00 WBC 6.2 (4.8-10.8) x10^3/uL RBC 3.94 L (4.20-5.40) 10^6/uL Hgb 11.8 L (12.0-16.0) g/dL Hct 36.2 L (37.0-47.0) % MCV 91.9 (81.0-99.0) fL MCH 29.9 (27.0-31.0) pg MCHC 32.6 (32.0-36.0) g/dL RDW 18.4 H (12.0-15.0) % Plt Count 106 L (130-450) 10^3/uL MPV 10.4 (7.9-10.8) fL Sodium 126 L (135-145) mmol/L Potassium 4.3 (3.5-4.5) mmol/L Chloride 94 L (101-111) mmol/L Carbon Dioxide 25 (21-32) mmol/L Anion Gap 7.0 (6-13) BUN 40 H (6-20) mg/dL Creatinine 1.0 (0.6-1.3) mg/dL Estimated GFR (MDRD) 54 L (>89) Glucose 96 (74-104) mg/dL POC Whole Bld Glucose 188 90 (70-100) mg/dL Calcium 8.3 L (8.5-10.3) mg/dL Magnesium 1.8 (1.7-2.3) mg/dL 06/25/24 06/25/24 Range/Units 20:24 18:28 WBC (4.8-10.8) x10^3/uL RBC (4.20-5.40) 10^6/uL Hgb (12.0-16.0) g/dL Hct (37.0-47.0) % MCV (81.0-99.0) fL MCH (27.0-31.0) pg MCHC (32.0-36.0) g/dL RDW (12.0-15.0) % Plt Count (130-450) 10^3/uL MPV (7.9-10.8) fL Sodium (135-145) mmol/L Potassium 3.6 (3.5-4.5) mmol/L Chloride (101-111) mmol/L Carbon Dioxide (21-32) mmol/L Anion Gap (6-13) BUN (6-20) mg/dL Creatinine (0.6-1.3) mg/dL Estimated GFR (MDRD) (>89) Glucose (74-104) mg/dL POC Whole Bld Glucose 85 (70-100) mg/dL Calcium (8.5-10.3) mg/dL Magnesium (1.7-2.3) mg/dL Assessment/Plan Problem List (1) Acute metabolic encephalopathy: Impression: Resolving. Patient has been alert and oriented x 3 for 2 days but she is still slow to respond in both speech, movement and thought process. It is an effort to wake and focus on me when I speak to her and ask questions. She tells me this is not her baseline. May be attributed to urinary tract infection. Patient does have increased urinary frequency. No fevers, or chills. Or it may be to the protein calories malnutrition. (2) UTI (urinary tract infection): Impression: Completed 3 days of Rocephin. Urine culture is growing E.Coli, which is pansusceptible. Now on Macrobid and I am completing five day course today. I will dc after today's dose Qualifiers: Urinary tract infection type: acute pyelonephritis Qualified Code(s): N 10 - Acute pyelonephritis (3) Hyponatremia: Impression: Likely hypovolemic, hypo-osmolar. She has not really responded to tx and was 127 on admit. Lasix has been held. She received another 250 cc bolus of 0.9 NS for 126 yesterday and went to 129 but 2 pm. But today she is 126 again. Caution with IVF in setting of CHF with EF of 10-15%. BP is 105/60 today as well. I will give anther 250 cc bolus. . (4) Hypokalemia: Impression: Likely due to diuretic use. Continue to hold Lasix so far. She was 2.9 yesterday and then 3.6 after supplement. Today she is 4.3. (5) Heart failure with reduced ejection fraction: Impression: Echo done 05/09 shows severely reduced systolic function of 15 to 20%. Severe tricuspid regurg, as well as mild mitral regurgitation is also seen. Patient's Lasix is currently held, she is euvolemic at this time. Will restart all her GDMT as able. --Coreg started 06/25 at a lower dose when systolic was 109-111. Today 94-107 with hold parameters. I will not change the dose today. Spironolactone, losartan currently held due to hypotension. While she needs ongoing manipulation of her medications, we do feel she has been stable since yesterday. Now looking for authorization for her to go to a [facility]. (6) Peripheral vascular disease of extremity: Impression: Continue aspirin and statin. (7) Pacemaker: Impression: Continue to monitor, follow up with molder hand outpatient. (8) Diabetes mellitus with hyperglycemia: Impression: Patient with uncontrolled sugars. A1c 7.6%. She is usually on 70/30 at home bid. Glucose was 300s on 06/24. We used insulin glargine 9 units in the morning, 8 units at night, sliding scale insulin with meals AND 5 units tid with meals. By the she was 317 and 178. But today she has been in the 90s in the morning. Fire Safety Inspector I discussed her 70/30 versus Lantus. She is can to go to a [facility] after this discharge. I will keep her on Lantus once in the morning. 10 units. I will stop the 5 units with meals. And continue sliding scale. Qualifiers: Diabetes mellitus longitudinal float operator insulin use: with longitudinal float operator use Diabetes mellitus type: type 2 Qualified Code(s): E11.65 - Type 2 diabetes mellitus with hyperglycemia; Z79.4 - penitentiary (current) use of insulin (9) Severe protein-calorie malnutrition: Impression: 7 kg weight loss in 6 months, 12% body fat. Muscle and fat wasting is noted in the face and upper extremities. There are multiple skin excoriations and breakdowns due to decreased p.o. intake secondary to underlying CHF. Nutrition consulted. Encourage P.O. intake and protein supplementation.
[2024-06-26] MEDS: SODIUM CHLORIDE 0.9% 250 ML IV ONE (20:37)
[2024-06-27] MEDS ORDERED: COD LIVER OIL/ZINC OXIDE 113 GM TUBE TOP PRN (09:19)
--- NOTE | 2024-06-27 18:58 | PROVIDER PROGRESS NOTE ---
Subjective Prog Note Date Prog Note Date: 06/27/24 Prog Note Time: 18:52 Subjective Pt reports feeling: Improved Subjective: She is sitting up in her chair for breakfast and lunch. While she still has slight slowing of thought process she appears more alert, more conversational. Denies chest pain, palpitations, shortness of breath at rest. Short of breath occurs mainly just with getting up and walking. Diminished appetite but able to eat breakfast. Current Medications Current Medications Current Medications: Current Medications Generic Name Dose Route Start Last Admin Trade Name Freq PRN Reason Stop Dose Admin Acetaminophen 650 mg 06/22/24 20:34 06/27/24 16:32 Acetaminophen 325 Mg Tablet PO 650 mg Q4HR PRN Administration Pain 1 to 4, or Fever Aspirin 81 mg 06/23/24 09:00 06/27/24 08:04 Aspirin Chew 81 Mg Tablet PO 81 mg DAILY CARO Administration Atorvastatin Calcium 40 mg 06/23/24 09:00 06/27/24 08:04 Atorvastatin 40 Mg Tablet PO 40 mg DAILY CARO Administration Carvedilol 3.125 mg 06/23/24 11:00 06/27/24 08:04 Carvedilol 3.125 Mg Tablet PO 3.125 mg BID CARO Administration Docusate Sodium 250 - 500 mg 06/23/24 09:00 06/27/24 08:04 Docusate Sodium 250 Mg Capsule PO Not Given DAILY CARO Heparin Sodium (Porcine) 5,000 unit 06/23/24 09:00 06/27/24 08:04 Heparin 5,000 Unit/Ml Vial SUBQ Not Given BID CARO Insulin Glargine-yfgn 9 unit 06/23/24 08:00 06/27/24 08:03 Insulin Glargine-Yfgn 300 Unit/3 Ml Pen SUBQ 9 unit QDBREAKFAST CARO Administration Insulin Glargine-yfgn 8 unit 06/23/24 21:00 06/26/24 20:53 Insulin Glargine-Yfgn 300 Unit/3 Ml Pen SUBQ 8 unit QPM CARO Administration Insulin Human Lispro 3 - 11 unit 06/25/24 17:00 06/27/24 17:14 Insulin Lispro 300 Unit/3 Ml Pen SUBQ 7 unit 0800,1200,1700,2100 CARO Administration Protocol Mupirocin 1 applic 06/22/24 22:00 06/27/24 14:15 Mupirocin 2% Oint 22 Gm Tube TOP 1 applic TID CARO Administration Ondansetron HCl 4 mg 06/22/24 20:34 Ondansetron 4 Mg/2 Ml Vial IVP Q6HR PRN Nausea / Vomiting Polyethylene Glycol 17 gm 06/23/24 09:00 06/27/24 08:05 Polyethylene Glycol 3350 17 Gm Packet PO Not Given DAILY CARO Sodium Chloride 10 ml 06/22/24 20:34 Sodium Chloride Flush 0.9% 10 Ml Syringe IVP PRN PRN NEEDED PER PROVIDER ORDERS Sodium Chloride 10 ml 06/23/24 01:00 06/27/24 16:33 Sodium Chloride Flush 0.9% 10 Ml Syringe IVP 10 ml 0100,0900,1700 CARO Administration Zinc Oxide 113 gm 06/27/24 09:19 Cod Liver Oil/Zinc Oxide 113 Gm Tube TOP PRN PRN Skin Care Objective Vital Signs/Intake & Output Reviewed Vital Signs: Yes Vital Signs: Vital Signs x48h Temp Pulse Resp BP Pulse Ox 06/27/24 15:25 36.6 C 61 18 103/57 L 97 Intake & Output: Intake & Output 06/25/24 06/26/24 06/27/24 06/28/24 05:59 05:59 05:59 05:59 Intake Total 2434 / 2434 970 / 970 970 / 970 716 / 716 Output Total 150 / 150 Balance 2433 / 2433 970 / 970 820 / 820 716 / 716 Objective General Appearance: positive No acute distress, Alert and Other (Sitting up in chair, watching TV. Struggling a little bit to me with the TV to speak to me.) Eyes Bilateral: positive PERRL and EOMI ENT: positive No signs of dehydration Neck: positive Nml inspection, Thyroid nml and No JVD Respiratory: positive Chest non-tender, No respiratory distress and Breath sounds nml; negative Wheezes, Rales or Rhonchi Cardiovascular: positive Regular rate & rhythm and Systolic murmur Abdomen: positive Non-tender, No organomegaly and Nml bowel sounds Skin: positive No rash, Dry and Pallor Extremities: positive Full ROM and Nml appearance Neurologic/Psychiatric: positive Oriented x3, CN's nml (2-12) and Motor nml (with generalized weakness, mild tachypnea to 24 momentarily, needing 1 min to standby assist. ) Lab Results 06/26/24 05:00 06/26/24 05:00 Other Labs: Lab Results x24hrs 06/27/24 06/27/24 06/27/24 Range/Units 16:28 11:14 07:21 POC Whole Bld Glucose 228 235 142 (70-100) mg/dL 06/26/24 06/26/24 Range/Units 20:38 16:41 POC Whole Bld Glucose 320 303 (70-100) mg/dL Assessment/Plan Problem List (1) Acute metabolic encephalopathy: Impression: Resolving. Patient has been alert and oriented x 3 for 2 days but she is still slow to respond in both speech, movement and thought process. It is an effort to wake and focus on me when I speak to her and ask questions. She tells me this is not her baseline. Today she is better than she was yesterday. May be attributed to urinary tract infection. Patient does have increased urinary frequency. No fevers, or chills. Or it may be to the protein calories malnutrition. -Medically stable and clear since the . We are awaiting authorization for fdc. She has chosen [facility]. (2) UTI (urinary tract infection): Impression: Completed 3 days of Rocephin. Urine culture is growing E.Coli, which is pansusceptible. Now on Macrobid and I am completing five day course today. I will dc after today's dose Qualifiers: Urinary tract infection type: acute pyelonephritis Qualified Code(s): N 10 - Acute pyelonephritis (3) Hyponatremia: Impression: Likely hypovolemic, hypo-osmolar. She has not really responded to tx and was 127 on admit. Lasix has been held. She received another 250 cc bolus of 0.9 NS for 126 yesterday and went to 129 but 2 pm. But today she is 126 again. Caution with IVF in setting of CHF with EF of 10-15%. I gave her 250 cc bolus on the . Blood pressure still relatively low at 103/57 today.No blood draw today. Will do blood draw tomorrow. . (4) Hypokalemia: Impression: Likely due to diuretic use. Continue to hold Lasix so far. She was 2.9 then 3.6 after supplement. Yesterday she was 4.3. Today I did not do any blood draws. I will do blood draw tomorrow to check. (5) Heart failure with reduced ejection fraction: Impression: Echo done 05/09 shows severely reduced systolic function of 15 to 20%. Severe tricuspid regurg, as well as mild mitral regurgitation is also seen. Patient's Lasix is currently held, she is euvolemic at this time. Will restart all her GDMT as able. --Coreg started 06/25 at a lower dose when systolic was 109-111. Today 94-107 with hold parameters. I will not change the dose today. Pulse 61--83. But persistently in the 60s. Spironolactone, losartan currently held due to hypotension. Weight started at 56 kg on June 07. On June 22 she was 50 kg. While she needs ongoing manipulation of her medications, we do feel she has been stable since 06/25. Now looking for authorization for her to go to a fdc. I will ask for weight in am. (6) Peripheral vascular disease of extremity: Impression: Continue aspirin and statin. (7) Pacemaker: Impression: Continue to monitor, follow up with tire center supervisor outpatient. (8) Diabetes mellitus with hyperglycemia: Impression: Patient with uncontrolled sugars. A1c 7.6%. She is usually on 70/30 at home bid. Glucose was 300s on 06/24. We used insulin glargine 9 units in the morning, 8 units at night, sliding scale insulin with meals AND 5 units tid with meals. By the she was 317 and 178. By 06/26/24 she was in the 90s in the morning. Oracle Application Architect I discussed her 70/30 versus Lantus. She is can to go to a fdc after this discharge. I will keep her on Lantus once in the morning. 10 units. I stopped the 5 units with meals. And continue sliding scale. Today her glucose was 142, 235, 228. I will increase her Lantus from 10 units in the morning to 12 units in the morning. Qualifiers: Diabetes mellitus type: type 2 Diabetes mellitus adjunct faculty for medical terminology insulin use: with adjunct faculty for medical terminology use Qualified Code(s): E11.65 - Type 2 diabetes mellitus with hyperglycemia; Z79.4 - jail (current) use of insulin (9) Severe protein-calorie malnutrition: Impression: 7 kg weight loss in 6 months, 12% body fat. Muscle and fat wasting is noted in the face and upper extremities. There are multiple skin excoriations and breakdowns due to decreased p.o. intake secondary to underlying CHF. Nutrition consulted. Encourage P.O. intake and protein supplementation.
[2024-06-28 05:50] LABS: BASOPHILS % (AUTO) 0.5 %; EOSINOPHILS # (AUTO) 0.1 10^3/uL (0.0-0.7); EOSINOPHILS % (AUTO) 1.2 %; HCT - HEMATOCRIT 36.7 % (37.0-47.0); HGB - HEMOGLOBIN 11.9 g/dL (12.0-16.0); LYMPHOCYTES # (AUTO) 1.3 10^3/uL (1.5-3.5); LYMPHOCYTES % (AUTO) 19.2 %; MEAN CORPUSCULAR HEMOGLOBIN 29.6 pg (27.0-31.0); MEAN CORPUSCULAR HGB CONC 32.4 g/dL (32.0-36.0); MEAN CORPUSCULAR VOLUME 91.3 fL (81.0-99.0); MEAN PLATELET VOLUME 10.3 fL (7.9-10.8); MONOCYTES # (AUTO) 0.8 10^3/uL (0.0-1.0); MONOCYTES % (AUTO) 11.5 %; NEUTROPHILS # (AUTO) 4.5 10^3/uL (1.5-6.6); NEUTROPHILS % (AUTO) 67.1 %; PLT - PLATELET COUNT 130 10^3/uL (130-450); RED BLOOD COUNT 4.02 10^6/uL (4.20-5.40); RED CELL DISTRIBUTION WIDTH 18.8 % (12.0-15.0); WHITE BLOOD COUNT 6.6 x10^3/uL (4.8-10.8)
[2024-06-28 06:08] LABS: CALCIUM 8.2 mg/dL (8.5-10.3); CREATININE 1.1 mg/dL (0.6-1.3); POTASSIUM 4.3 mmol/L (3.5-4.5)
[2024-06-28 08:03] VITALS: O2SAT 96
[2024-06-28] MEDS: INSULIN GLARGINE-YFGN 300 UNIT/3 ML PEN SUBQ SCH (08:10)
--- NOTE | 2024-06-28 10:51 | Discharge Summary ---
Discharge Summary Admit Date: 06/22/24 Discharge Date: 06/28/24 Discharging Provider: Mandie Marlow MD Primary Care Provider: Junior Aguirre MD Code Status: Attempt Resuscitation Discharge Facility Name: [facility] DIAGNOSES Discharge Diagnoses with Status of Each Condition: 1. Acute metabolic encephalopathy, not completely resolved 2. UTI with E. coli, pansensitive, resolved 3. Hyponatremia from hypovolemia, hypoosmolar status 4. Hypokalemia 5. Heart failure with reduced ejection fraction. EF 15 to 20%. Severe tricuspid regurg, mild mitral regurg. 6. Chronic hypotension intolerant to spironolactone and losartan. Currently only on Coreg and Lasix 7. Peripheral vascular disease of extremity 8. Pacemaker status 9. Type 2 diabetes mellitus, uncontrolled, with hyperglycemia, on long-term use of insulin without complication 10. Severe protein calorie malnutrition HPI History of Present Illness: Ms Burnett is a 74 yo F with history of CHF, pacemaker in situ, PVD, HTN, peptic ulcer disease, DM II. Presents to ER with compaints of confusion x 1 day. Patient reports she has been feeling "out of it", tired, generalized weakness. Reports good appetite, denies cp, sob, palpitations, abd pain, n/v, dysuria/hematuria, flank pain. She has a cough, difficult to expectorate sputum. Denies fevers or chills. Her daughter had cold-like symptoms a few days ago, no fevers. She has bilateral lower extremity wounds, blister on R foot, she has been on doxycycline x 2 weeks, last dose was yesterday. She has not noticed much change or improvement in the wounds. At time of my evaluation patient is ble to tell me that she is at [facility], month June and year 2023, and her full name. She still feels "off" but can't really say why. CONSULTS | PROCEDURES Procedures: 1. Chest x-ray with hazy left basilar opacity representing probable atelectasis (or infection) 2. Head CT without any acute intracranial pathology 3. Urine culture with E. coli that was pansensitive 4. A1c is 7.6%. 5. B12 level is 402 pg/mL (normal) HOSPITAL COURSE Hospital Course: (1) Acute metabolic encephalopathy: Impression: Resolving but not at baseline according to patient. Patient has been alert and oriented since she was brought to [facility] from ED but she is still slow to respond in both speech, movement and thought process. It is an effort to wake and focus on me when I speak to her and ask questions. She tells me this is not her baseline. She has improved slowly each day. She will sit in chair to feed herself and manipulate TV remote adequately. May be attributed to urinary tract infection. Patient does have increased urinary frequency. No fevers, or chills. Or it may be to the protein calorie malnutrition. -Medically stable and clear since the . We were awaiting authorization for [facility] and now approved to go for rehab. (2) UTI (urinary tract infection): Impression: Completed 3 days of Rocephin. Urine culture is growing E.Coli, which is pansusceptible. Was then on Macrobid and I completed a five day course. Qualifiers: Urinary tract infection type: acute pyelonephritis Qualified Code(s): N 10 - Acute pyelonephritis (3) Hyponatremia: Impression: Likely hypovolemic, hypo-osmolar. She has not really responded to tx and was 127 on admit. Lasix has been held. She received another 250 cc bolus of 0.9 NS for 126 06/25 and went to 129 by 2 pm. 126 again on 06/27. Caution with IVF in setting of CHF with EF of 10-15%. I gave her another 250 cc bolus on the . Blood pressure still relatively low at 103/57 but by am of dc she was 111/62. Unfortunately, she is 121 Na at dc and will need continued fluid balance managment at [facility]. . (4) Hypokalemia resolved: Impression: Likely due to diuretic use. We held home torsemide and our Lasix. She was 2.9 then 3.6 after supplement. She was normal at 4.3 on 11 and day of dc. (5) Heart failure with reduced ejection fraction: Impression: Echo done 05/09 shows severely reduced systolic function of 15 to 20%. Severe tricuspid regurg, as well as mild mitral regurgitation is also seen. Patient's Lasix is currently held, she is euvolemic at this time. --Coreg started 06/25 at a lower dose when systolic was 109-111. BP has been low between 94-107 with hold parameters. Pulse 61--83. But persistently in the 60s. Spironolactone, losartan currently held due to hypotension. Weight started at 56 kg on June 07. On June 22 she was 50 kg. On day of dc was back to 56 Kg. (6) Peripheral vascular disease of extremity: Impression: Continue aspirin and statin. (7) Pacemaker: Impression: Continue to monitor, follow up with permit review assistant outpatient. (8) Diabetes mellitus with hyperglycemia: Impression: Patient with uncontrolled sugars. A1c 7.6%. She is usually on 70/30 at home bid. Glucose was 300s on 06/24. We used insulin glargine 9 units in the morning, 8 units at night, sliding scale insulin with meals AND 5 units tid with meals. By the she was 317 and 178. By 06/26/24 she was in the 90s in the morning. Furniture Upholsterer Apprentice I discussed her 70/30 versus Lantus. She [place] to go [place] [facility] after this discharge. I will keep her on Lantus once in the morning. 10 units. I stopped the 5 units with meals and the night time lantus and continue sliding scale. Glucose was 142, 235, 228 on 06/27 and this am she is 168. She is being dc'd with lantus 12 units in the morning and metformin 500 mg po tid ac (at home she took 1500 all at once) Qualifiers: Diabetes mellitus type: type 2 Diabetes mellitus skilled nursing insulin use: with watermelon inspector use Qualified Code(s): E11.65 - Type 2 diabetes mellitus with hyperglycemia; Z79.4 - terminal superintendent (current) use of insulin (9) Severe protein-calorie malnutrition: Impression: 7 kg weight loss in 6 months, 12% body fat. Muscle and fat wasting is noted in the face and upper extremities. There are multiple skin excoriations and breakdowns due to decreased p.o. intake secondary to underlying CHF. Nutrition consulted. Encourage P.O. intake and protein supplementation. ALLERGIES Allergies Allergy/AdvReac Type Severity Reaction Status Date / Time ibuprofen Allergy Intermediate GI upset Verified 06/07/24 15:05 morphine Allergy Unknown Unknown Verified 06/07/24 15:05 oxycodone AdvReac Mild Hallucinati Verified 06/22/24 15:40 ons shellfish Allergy Unknown Uncoded 06/07/24 15:05 MEDICATIONS Ambulatory Orders Medication Instructions Recorded Confirmed acetaminophen 325 mg tablet 650 mg (2 x 325 mg) PO Q4HR PRN 06/28/24 Pain 1 to 4, or Fever #30 tabs aspirin 81 mg chewable tablet 81 mg PO DAILY #30 tabs 06/28/24 atorvastatin 40 mg tablet 40 mg PO DAILY #30 tabs 06/28/24 carvedilol 3.125 mg tablet 3.125 mg PO BID #60 tabs 06/28/24 insulin glargine-yfgn 100 unit/mL 12 unit (0.12 mL) subcut 06/28/24 (3 mL) subcutaneous pen QDBREAKFAST #15 mL magnesium 250 mg tablet 250 mg PO DAILY #30 tabs 06/28/24 06/23/24 metformin 500 mg tablet 500 mg PO QDAC #90 tabs 06/28/24 06/23/24 metolazone 2.5 mg tablet 2.5 mg PO DAILY #30 tabs 06/28/24 06/23/24 mupirocin 2 % topical ointment 1 applic topical TID #15 grams 06/28/24 spironolactone 25 mg tablet 25 mg PO DAILY #30 tabs 06/28/24 06/23/24 (Aldactone) PHYSICAL EXAM AT DISCHARGE General Appearance: positive No acute distress, Alert and Other (5 feet 2 inches tall, 56 kg today with a BMI of 22.6. Up in chair. Answering questions appropriately. Slow psychomotor response time.) Eyes Bilateral: positive PERRL and EOMI ENT: positive No signs of dehydration Neck: positive Nml inspection and No JVD Respiratory: positive No respiratory distress and Breath sounds nml; negative Wheezes, Rales or Rhonchi Cardiovascular: positive Regular rate & rhythm and Systolic murmur Abdomen: positive Non-tender, No organomegaly and Nml bowel sounds Skin: positive Color nml, Dry, Pallor and Other (Legs with healing excoriations which she says are due to her peripheral vascular disease) Extremities: positive Pedal edema (Trace); negative Nml appearance or Calf tenderness Neurologic/Psychiatric: positive Oriented x3, CN's nml (2-12) and Motor nml (Focal deficits however she is weak, requires assist to go from supine to sitting, sitting to standing and to stand and pivot. She follows commands. Gait is shuffling. Tends to hunch forward in a walker and is off balance.) LABS 06/28/24 05:19 06/28/24 05:19 TIME SPENT Time Spent in Discharge (Minutes): 45 Discharge Plan Discharge Patient Disposition: 03 SNF DC/Xfer Condition: Serious Medically Cleared Date:: 06/25/24 Prescriptions: New acetaminophen 325 mg Tablet 650 mg PO Q4HR PRN (Reason: Pain 1 to 4, or Fever) Qty: 30 0RF aspirin 81 mg Tablet,Chewable 81 mg PO DAILY Qty: 30 0RF atorvastatin 40 mg Tablet 40 mg PO DAILY Qty: 30 0RF carvedilol 3.125 mg Tablet 3.125 mg PO BID Qty: 60 0RF mupirocin 2 % Ointment 1 applic topical TID Qty: 15 0RF insulin glargine-yfgn 100 unit/mL (3 mL) Insulin Pen 12 unit subcut QDBREAKFAST Qty: 15 0RF Continued metolazone 2.5 mg tablet 2.5 mg PO DAILY Qty: 30 0RF Patient Comments: TAKE 1 TABLET BY MOUTH ONCE DAILY. TAKE 30 MINUTES BEFORE YOUR TORSEMIDE DOSE. spironolactone [Aldactone] 25 MG tablet 25 mg PO DAILY Qty: 30 0RF Patient Comments: TAKE 1/2 (ONE-HALF) TABLET BY MOUTH ONCE DAILY magnesium 250 MG tablet 250 mg PO DAILY Qty: 30 0RF Changed metformin 500 mg tablet 500 mg PO QDAC Qty: 90 0RF Patient Comments: TAKE 1 TABLET BY MOUTH THREE TIMES DAILY WITH MEALS Discontinued atorvastatin 40 MG tablet 40 mg PO DAILY Patient Comments: TAKE 1 TABLET BY MOUTH ONCE DAILY Novolin 70/30 U-100 Insulin 100 UNIT/ML suspension 13 unit SQ QDBREAKFAST Rx Instructions: WILL INCREASE TO 14 UNIT IF BG > 150, 16 UNITS IF BG OVER 190. aspirin 81 MG tablet,chewable 81 mg PO DAILY torsemide 20 mg tablet 20 mg PO DAILY Patient Comments: TAKE 1 TABLET BY MOUTH ONCE DAILY metoprolol succinate 25 mg tablet extended release 24 hr 25 mg PO DAILY Patient Comments: TAKE 1/2 (ONE-HALF) TABLET BY MOUTH ONCE DAILY Rx Instructions: PT REPORTS TAKING 1 TAB DAILY, NOT HALF A TAB ORDERED. Activity Restrictions: Activity as Tolerated Diet: Low Sodium Health Concerns: 74-year-old pleasant female with a history of congestive heart failure that has an ejection fraction of 15 to 20% who presented with altered mental status on June 22. After being evaluated in the emergency room she was found to have worsening hyponatremia, mild congestive heart failure, and protein calorie malnutrition. She has psychomotor slowing and appears fatigued but has been steadily improving. Her torsemide and spironolactone and metoprolol were held because of hypotension. She was started on Coreg and is tolerated that well. At discharge her blood pressure is 111/62 and spironolactone will be resumed with her Coreg. Please continue to evaluate this patient weekly and see when her Lasix can be resumed. She did have a UTI on admission that was treated with Macrobid. It grew out E. coli that was barillas susceptible. She is now discharged to snf facility due to deconditioning and weakness requiring rehab. Plan is for her to return to independent living when she is strong enough. Care Plan Goals: Rehabilitation at a snf facility until she is strong enough to return to home Assessment: Although she is improved with faster mentation, patient still has evidence of fatigue, psychomotor slowing when in conversation. She says that she is not back to baseline yet. CT of head is negative for stroke. No further signs of infection. Sodium has been stable. Plan of Treatment: I assumed care planning goals Print Language: [place] Patient Instructions: Cardiomyopathy Dc Stand Alone Forms: SNF Discharge Follow-up Care: Junior Aguirre MD [Primary Care Provider] -
== END 2024-06-28 12:10 | DRG 70 ==
LOC: ED 15:21 → MS2 15:21
PROVIDERS: ADMIT Student in an Organized Health Care Education/Training Program; ATTEND Student in an Organized Health Care Education/Training Program
DX: I50.22 Chronic systolic (congestive) heart failure; Z68.22 Body mass index [BMI] 22.0-22.9, adult; G93.41 Metabolic encephalopathy; E87.6 Hypokalemia; I25.10 Atherosclerotic heart disease of native coronary artery without angina pectoris; N18.30 Chronic kidney disease, stage 3 unspecified; E11.22 Type 2 diabetes mellitus with diabetic chronic kidney disease; E87.1 Hypo-osmolality and hyponatremia; B96.20 Unspecified Escherichia coli [E. coli] as the cause of diseases classified elsewhere; E11.51 Type 2 diabetes mellitus with diabetic peripheral angiopathy without gangrene; Z79.899 Other long term (current) drug therapy; F17.210 Nicotine dependence, cigarettes, uncomplicated; Z95.0 Presence of cardiac pacemaker; I08.1 Rheumatic disorders of both mitral and tricuspid valves; Z79.82 Long term (current) use of aspirin; N10 Acute pyelonephritis; E86.1 Hypovolemia; X58.XXXA Exposure to other specified factors, initial encounter; Z79.4 Long term (current) use of insulin; E43 Unspecified severe protein-calorie malnutrition; I95.9 Hypotension, unspecified; I13.0 Hypertensive heart and chronic kidney disease with heart failure and stage 1 through stage 4 chronic kidney disease, or unspecified chronic kidney disease; Z79.84 Long term (current) use of oral hypoglycemic drugs; S90.821A Blister (nonthermal), right foot, initial encounter; R74.8 Abnormal levels of other serum enzymes; E11.65 Type 2 diabetes mellitus with hyperglycemia